=== PATIENT | female | born 1950 | race Two or more races ===

== ENCOUNTER 2023-04-21 11:49 | Outpatient (AMB) | payer OTHER, SELFPAY ==
--- NOTE | 2023-04-21 11:50 | HO.NEPHOV_ITS ---
HPI HPI Comments History of Present Illness Details [age] year old woman with a history of longstanding hypertension cholelithiasis with transaminitis fatty liver and chronic back pain with obesity he is here for follow-up regarding hypertension. She has been on verapamil 180 mg twice a day and telmisartan 80 mg a day. Today she has no specific complaints. Back in July of 2021 she developed cough with Lotrel. Lotrel was switched to valsartan with amlodipine combination which she has been able to tolerate. [facility] Social History (Updated 04/21/23 @ 11:57 by Viktoriya Berger MA) Alcohol intake: never Patient Tobacco Use Status: Never used Tobacco Vital Signs 3 04/21/23 11:51 Height 5 ft 3 in Weight 210 lb BMI 37.2 BP 118/62 Blood Pressure Location Lt brachial Position Sitting Pulse 76 Pulse Source Pulse Oximeter Pulse Oximetry (%) 98 Oxygen Delivery Method Room Air Physical Exam Vital Signs: Last Vital Signs Pulse 76 04/21/23 11:51 BP 118/62 04/21/23 11:51 Pulse Ox 98 04/21/23 11:51 Oxygen Delivery Method Room Air 04/21/23 11:51 BMI result Body Mass Index 37.2 Const General: comfortable Nutritional Appearance: well nourished Orientation/consciousness: patient oriented x3 HEENT Head: No normal to inspection Mouth: moist mucous membranes Neck Neck: Yes supple and Yes no JVD Resp Auscultation: clear to auscultation bilaterally, no rales and rub present Cardio Jugular venous distension: no JVD Palpation: no palpable S3 and no palpable S4 Heart sounds: no rubs GI Palpation (GI): Soft to palpation and nontender Percussion: No Fluid wave present General: Yes no CVA tenderness Back/Spine/Pelvis Back: no CVA tenderness Skin General skin exam: no rashes or lesions noted Neuro General: patient oriented x3 Extrem General: Yes no pedal edema and No clubbing Assessment & Plan Assessment & Plan (1) HTN (hypertension): Code(s): I10 - Essential (primary) hypertension Plan 72-year-old man with history of resistant hypertension. Currently blood pressure is well controlled. We discussed low-salt diet. Continue with current antihypertensive regimen. She will benefit from weight loss as well. I have given refills for hydralazine. Routine lab work ordered Medications: New hydralazine 10 mg PO TID 90 tabs 4RF Coding Level of Care Code Est Pt Level 3 (71268) Diagnoses HTN (hypertension) I10 Results Reviewed Results Reviewed: All lab results reviewed Nephrology Results: No Data to Display
[2023-04-21 11:51] VITALS: BP 118/62; PULSE 76; O2SAT 98; BMI 37.2
== END 2023-04-21 12:06 | disposition home or self-care (01) ==
PROVIDERS: Visit Provider Internal Medicine Hypertension Specialist
DX: I10 Essential (primary) hypertension (principal)
CPT/HCPCS: 99213

== ENCOUNTER → 2023-04-21 11:49 | Outpatient (BNVA) | payer OTHER, SELFPAY | PROVIDERS: Visit Provider Internal Medicine Hypertension Specialist | DX: I10 Essential (primary) hypertension (principal) | CPT/HCPCS: 99212 ==

== ENCOUNTER 2023-08-25 13:19 | Outpatient (AMB) | payer OTHER, SELFPAY ==
[2023-08-25 13:26] VITALS: BP 164/84; PULSE 82; O2SAT 100; BMI 39.1
--- NOTE | 2023-08-25 13:26 | HO.NEPHOV_ITS ---
Vital Signs 08/25/23 13:26 Height 5 ft 3 in Weight 221 lb BMI 39.1 BP 164/84 H Blood Pressure Location Lt brachial Position Sitting Pulse 82 Pulse Source Pulse Oximeter Pulse Oximetry (%) 100 Oxygen Delivery Method Room Air Intake Visit Reasons: August/ Confirmed Endodontics Dentist Required: No Accompanied by: Self / Same As Patient Allergies No Known Allergies Allergy (Verified 08/25/23 13:28) HPI Comments Details: [age] old woman with a history of longstanding hypertension cholelithiasis with transaminitis fatty liver and chronic back pain with obesity he is here for follow-up regarding hypertension. She has been on verapamil 180 mg twice a day and telmisartan 80 mg a day. Today she has no specific complaints. Back in July of 2021 she developed cough with Lotrel. Lotrel was switched to valsartan with amlodipine combination which she has been able to tolerate. c/o KNee pain PFSH Social History Alcohol intake: never Patient Tobacco Use Status: Never used Tobacco Physical Exam Vital Signs: Last Vital Signs Pulse 82 08/25/23 13:26 BP 164/84 H 08/25/23 13:26 Pulse Ox 100 08/25/23 13:26 Oxygen Delivery Method Room Air 08/25/23 13:26 BMI result Body Mass Index 39.1 Const General: comfortable Nutritional Appearance: well nourished Orientation/consciousness: patient oriented x3 HEENT Head: No normal to inspection Mouth: moist mucous membranes Neck Neck: Yes supple and Yes no JVD Resp Auscultation: clear to auscultation bilaterally, no rales and rub present Cardio Jugular venous distension: no JVD Palpation: no palpable S3 and no palpable S4 Heart sounds: no rubs GI Palpation (GI): Soft to palpation and nontender Percussion: No Fluid wave present General: Yes no CVA tenderness Back/Spine/Pelvis Back: no CVA tenderness Skin General skin exam: no rashes or lesions noted Neuro General: patient oriented x3 Extrem General: Yes no pedal edema and No clubbing Results Reviewed Results Reviewed: July 2023 Cr 0.6 UA bland Nephrology Results: No Data to Display Assessment & Plan Assessment & Plan (1) HTN (hypertension): Code(s): I10 - Essential (primary) hypertension Category: Medical Plan 73-year-old woman with history of resistant hypertension. Currently blood pressure is sub optimal We discussed low-salt diet. She will benefit from weight loss as well. Will increase hydralazine to 50 mg TID. Routine lab work ordered Orders: Orders Basic Metabolic Panel 3 Months I10 - Essential (primary) hypertension Medications: Changed From hydralazine 25 mg PO TID 90 tabs 0RF To hydralazine 50 mg PO TID 270 tabs 1RF Coding Level of Care Code Est Pt Level 4 (06307) Diagnoses HTN (hypertension) I10
== END 2023-08-25 13:52 | disposition home or self-care (01) ==
PROVIDERS: Visit Provider Internal Medicine Hypertension Specialist
DX: I10 Essential (primary) hypertension (principal)
CPT/HCPCS: 99214

== ENCOUNTER → 2023-08-25 13:19 | Outpatient (BNVA) | payer OTHER, SELFPAY | PROVIDERS: Visit Provider Internal Medicine Hypertension Specialist | DX: I10 Essential (primary) hypertension (principal) | CPT/HCPCS: 99212 ==

== ENCOUNTER 2023-12-22 12:02 | Outpatient (AMB) | payer OTHER, SELFPAY ==
[2023-12-22 12:07] VITALS: BP 148/70; PULSE 84; O2SAT 94; BMI 36.7
--- NOTE | 2023-12-22 12:07 | HO.NEPHOV_ITS ---
Vital Signs 12/22/23 12:07 Height 5 ft 3 in Weight 207 lb BMI 36.7 BP 148/70 H Blood Pressure Location Lt brachial Position Sitting Pulse 84 Pulse Source Pulse Oximeter Pulse Oximetry (%) 94 Oxygen Delivery Method Room Air Intake Visit Reasons: 4 mon follow up/ Conf Casino Games Dealer Required: No Accompanied by: Self / Same As Patient Allergies No Known Allergies Allergy (Verified 12/22/23 12:09) Medication List - Last Reconciled 12/22/23 by Marshall Holder MD amitriptyline 10 mg PO BEDTIME amlodipine 10 mg PO DAILY duloxetine 60 mg PO DAILY fluticasone propionate 50 mcg/actuation 1 spray intranasal BID hydralazine 50 mg PO TID omeprazole 20 mg PO DAILY rosuvastatin 5 mg PO DAILY simvastatin 10 mg PO DAILY HPI Comments Details: [age] old woman with a history of longstanding hypertension cholelithiasis with transaminitis fatty liver and chronic back pain with obesity he is here for follow-up regarding hypertension. She has been on verapamil 180 mg twice a day and telmisartan 80 mg a day. Today she has no specific complaints. Back in July of 2021 she developed cough with Lotrel. Lotrel was switched to valsartan with amlodipine combination which she has been able to tolerate. She has lost about 14 lbs [facility] Social History Alcohol intake: never Patient Tobacco Use Status: Never used Tobacco Physical Exam Vital Signs: Last Vital Signs Pulse 84 12/22/23 12:07 BP 148/70 H 12/22/23 12:07 Pulse Ox 94 12/22/23 12:07 Oxygen Delivery Method Room Air 12/22/23 12:07 BMI result Body Mass Index 36.7 Const General: comfortable Nutritional Appearance: well nourished Orientation/consciousness: patient oriented x3 HEENT Head: No normal to inspection Mouth: moist mucous membranes Neck Neck: Yes supple and Yes no JVD Resp Auscultation: clear to auscultation bilaterally and no rales Cardio Jugular venous distension: no JVD Palpation: no palpable S3 and no palpable S4 Heart sounds: no rubs GI Palpation (GI): Soft to palpation and nontender Percussion: No Fluid wave present General: Yes no CVA tenderness Back/Spine/Pelvis Back: no CVA tenderness Skin General skin exam: no rashes or lesions noted Neuro General: patient oriented x3 Extrem General: Yes no pedal edema and No clubbing Results Reviewed Nephrology Results: No Data to Display Assessment & Plan Assessment & Plan (1) HTN (hypertension): Code(s): I10 - Essential (primary) hypertension Category: Medical Plan 73-year-old woman with history of resistant hypertension. Currently blood pressure is better controlledl We discussed low-salt diet. She will benefit from weight loss as well. Keep hydralazine 50 mg TID along with other meds Orders: Orders Basic Metabolic Panel 3 Months I10 - Essential (primary) hypertension Coding Level of Care Code Est Pt Level 3 (31735) Diagnoses HTN (hypertension) I10
== END 2023-12-22 12:36 | disposition home or self-care (01) ==
PROVIDERS: Visit Provider Internal Medicine Hypertension Specialist
DX: I10 Essential (primary) hypertension (principal)
CPT/HCPCS: 99213

== ENCOUNTER → 2023-12-22 12:02 | Outpatient (BNVA) | payer OTHER, SELFPAY | PROVIDERS: Visit Provider Internal Medicine Hypertension Specialist | DX: I10 Essential (primary) hypertension (principal); K80.20 Calculus of gallbladder without cholecystitis without obstruction; K76.0 Fatty (change of) liver, not elsewhere classified; E66.9 Obesity, unspecified; Z68.36 Body mass index [BMI] 36.0-36.9, adult | CPT/HCPCS: 99212 ==

== ENCOUNTER 2024-01-19 09:29 | Outpatient (AMB) | payer OTHER, SELFPAY ==
[2024-01-19 09:48] VITALS: BP 130/72; BMI 36.5
--- NOTE | 2024-01-19 09:48 | HO.NEPHOV ---
Vital Signs 01/19/24 09:48 Height 5 ft 3 in Weight 206 lb BMI 36.5 BP 130/72 Blood Pressure Location Lt brachial Position Sitting Intake Visit Reasons: To review medications/ Conf Bowl Turner Required: No Accompanied by: Self / Same As Patient Allergies No Known Allergies Allergy (Verified 01/19/24 09:49) Medication List - Last Reconciled 01/19/24 by Marshall Holder MD amitriptyline 10 mg PO BEDTIME amlodipine 10 mg PO DAILY duloxetine 60 mg PO DAILY fluticasone propionate 50 mcg/actuation 1 spray intranasal BID PRN hydralazine 50 mg PO TID magnesium 250 mg PO DAILY omeprazole 20 mg PO DAILY PRN simvastatin 10 mg PO DAILY vitamin B complex 1 cap PO DAILY HPI Comments Details: [age] old woman with a history of longstanding hypertension cholelithiasis with transaminitis fatty liver and chronic back pain with obesity he is here for follow-up regarding hypertension. She has been on verapamil 180 mg twice a day and telmisartan 80 mg a day. Today she has no specific complaints. Back in July of 2021 she developed cough with Lotrel. Lotrel was switched to valsartan with amlodipine combination which she has been able to tolerate. She has lost about 14 lbs COUNTS INCLUDE 234 BEDS AT [facility] Social History Alcohol intake: never Patient Tobacco Use Status: Never used Tobacco Physical Exam Vital Signs: Last Vital Signs BP 130/72 01/19/24 09:48 BMI result Body Mass Index 36.5 Const General: comfortable; No acute distress Orientation/consciousness: patient oriented x3 Eyes General: appearance normal, both eyes and all related structures Visual Rivers: normal visual rivers by confrontation Neck Neck: Yes supple and Yes no JVD Resp Effort & Inspection: normal respiratory effort and respiratory effort not decreased Auscultation: rhonchi Cardio Palpation: no palpable S3 and no palpable S4 Heart sounds: no rubs GI Inspection: Yes normal to inspection Palpation (GI): Soft to palpation Percussion: Yes normal to percussion Auscultation: normal bowel sounds General: Yes no CVA tenderness Back/Spine/Pelvis Back: no CVA tenderness Skin General skin exam: no petechiae and no purpura Neuro General: patient oriented x3 and no focal motor deficits Extrem General: No clubbing and No edema Results Reviewed Nephrology Results: No Data to Display Assessment & Plan Assessment & Plan (1) HTN (hypertension): Code(s): I10 - Essential (primary) hypertension Category: Medical Plan 73-year-old woman with history of resistant hypertension. Currently blood pressure is better controlledl We discussed low-salt diet. She will benefit from weight loss as well. Keep hydralazine 50 mg TID along with other meds OK to add Losartan Can decrease AMlodipine once Losartan is started Note: Her home BP cuff was calibrated and it is about 20 mmHg higher than the office BP cuffs Orders: Orders Basic Metabolic Panel 6 Months I10 - Essential (primary) hypertension Medications: Changed From fluticasone propionate 50 mcg/actuation administer into each nostril 1 spray intranasal BID 16 grams 0RF To fluticasone propionate 50 mcg/actuation administer into each nostril 1 spray intranasal BID PRN From omeprazole 20 mg PO DAILY 30 caps 0RF To omeprazole 20 mg PO DAILY PRN Coding Level of Care Code Est Pt Level 4 (43257) Diagnoses HTN (hypertension) I10
== END 2024-01-19 10:05 | disposition home or self-care (01) ==
PROVIDERS: Visit Provider Internal Medicine Hypertension Specialist
DX: I10 Essential (primary) hypertension (principal)
CPT/HCPCS: 99214

== ENCOUNTER → 2024-01-19 09:29 | Outpatient (BNVA) | payer OTHER, SELFPAY | PROVIDERS: Visit Provider Internal Medicine Hypertension Specialist | DX: I10 Essential (primary) hypertension (principal); E66.9 Obesity, unspecified; Z68.36 Body mass index [BMI] 36.0-36.9, adult | CPT/HCPCS: 99212 ==

== ENCOUNTER 2024-03-22 12:04 | Outpatient (AMB) | payer OTHER, SELFPAY ==
[2024-03-22 12:08] VITALS: BP 146/72; PULSE 77; O2SAT 99; BMI 35.8
--- NOTE | 2024-03-22 12:08 | HO.NEPHOV_ITS ---
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 Accompanied by: Self / Same As Patient Allergies No Known Allergies Allergy (Verified 03/22/24 12:09) Medication List - Last Reconciled 03/22/24 by Marshall Holder MD albuterol sulfate 90 mcg/actuation inhalation PRN amitriptyline 10 mg PO BEDTIME amlodipine 10 mg PO DAILY duloxetine 60 mg PO DAILY fluticasone propionate 50 mcg/actuation 1 spray intranasal BID PRN hydralazine 50 mg PO TID losartan 25 mg PO DAILY magnesium 250 mg PO DAILY omeprazole 20 mg PO DAILY PRN simvastatin 10 mg PO DAILY valacyclovir 500 mg PO BID PRN vitamin B complex 1 cap PO DAILY HPI Comments Details: [age] old woman with a history of longstanding hypertension cholelithiasis with transaminitis fatty liver and chronic back pain with obesity he is here for follow-up regarding hypertension. She has been on verapamil 180 mg twice a day and telmisartan 80 mg a day. Today she has no specific complaints. Back in July of 2021 she developed cough with Lotrel. Lotrel was switched to valsartan with amlodipine combination which she has been able to tolerate. She has lost about 14 lbs 03/22/2024 Overall doing well no new issues. She has occasional leg edema mostly in the evenings no shortness of breath. [facility] Social History Alcohol intake: never Patient Tobacco Use Status: Never used Tobacco Physical Exam Vital Signs: Last Vital Signs Pulse 77 03/22/24 12:08 BP 136/70 03/22/24 12:18 Pulse Ox 99 03/22/24 12:08 Oxygen Delivery Method Room Air 03/22/24 12:08 BMI result Body Mass Index 35.8 Const General: comfortable; No acute distress Orientation/consciousness: patient oriented x3 Eyes General: appearance normal, both eyes and all related structures Visual Rivers: normal visual rivers by confrontation Neck Neck: Yes supple and Yes no JVD Resp Effort & Inspection: normal respiratory effort and respiratory effort not decreased Auscultation: rhonchi Cardio Palpation: no palpable S3 and no palpable S4 Heart sounds: no rubs GI Inspection: Yes normal to inspection Palpation (GI): Soft to palpation Percussion: Yes normal to percussion Auscultation: normal bowel sounds General: Yes no CVA tenderness Back/Spine/Pelvis Back: no CVA tenderness Skin General skin exam: no petechiae and no purpura Neuro General: patient oriented x3 and no focal motor deficits Extrem General: No clubbing and No edema Results Reviewed Results Reviewed: Renal panel normal Nephrology Results: No Data to Display Assessment & Plan Assessment & Plan (1) HTN (hypertension): Code(s): I10 - Essential (primary) hypertension Category: Medical Plan 73-year-old woman with history of resistant hypertension. Currently blood pressure is better controlled We discussed low-salt diet. She will benefit from weight loss as well. Keep hydralazine 50 mg TID along with other meds Continue with current medications no changes were made Note: Her home BP cuff was calibrated and it is about 20 mmHg higher than the office BP cuffs Orders: Orders Basic Metabolic Panel 6 Months I10 - Essential (primary) hypertension Coding Level of Care Code Est Pt Level 4 (33780) Diagnoses HTN (hypertension) I10
[2024-03-22 12:18] VITALS: BP 136/70
== END 2024-03-22 12:21 | disposition home or self-care (01) ==
PROVIDERS: Visit Provider Internal Medicine Hypertension Specialist
DX: I10 Essential (primary) hypertension (principal)
CPT/HCPCS: 99214

== ENCOUNTER → 2024-03-22 12:04 | Outpatient (BNVA) | payer OTHER, SELFPAY | PROVIDERS: Visit Provider Internal Medicine Hypertension Specialist | DX: I10 Essential (primary) hypertension (principal) | CPT/HCPCS: 99212 ==

== ENCOUNTER 2024-06-28 08:32 | Outpatient (AMB) | payer OTHER, SELFPAY ==
[2024-06-28 08:33] VITALS: BP 130/72; PULSE 83; O2SAT 100; BMI 37.6
--- NOTE | 2024-06-28 08:33 | HO.NEPHOV ---
Vital Signs 06/28/24 08:33 Height 5 ft 3 in Weight 212 lb BMI 37.6 BP 130/72 Blood Pressure Location Lt brachial Position Sitting Pulse 83 Pulse Source Pulse Oximeter Pulse Oximetry (%) 100 Oxygen Delivery Method Room Air Intake Visit Reasons: Medication Concerns/ Conf Pmo Consultant Required: No Accompanied by: Self / Same As Patient Allergies No Known Allergies Allergy (Verified 06/28/24 08:35) Medication List - Last Reconciled 06/28/24 by Marshall Holder MD albuterol sulfate 90 mcg/actuation inhalation PRN amlodipine 10 mg PO DAILY duloxetine 60 mg PO DAILY fluticasone propionate 50 mcg/actuation 1 spray intranasal BID PRN hydralazine 50 mg PO TID losartan 25 mg PO DAILY magnesium 250 mg PO DAILY PRN omeprazole 20 mg PO DAILY PRN simvastatin 5 mg PO DAILY valacyclovir 500 mg PO BID PRN vitamin B complex 1 cap PO DAILY HPI Comments Details: [age] old woman with a history of longstanding hypertension cholelithiasis with transaminitis fatty liver and chronic back pain with obesity he is here for follow-up regarding hypertension. She has been on verapamil 180 mg twice a day and telmisartan 80 mg a day. Today she has no specific complaints. Back in July of 2021 she developed cough with Lotrel. Lotrel was switched to valsartan with amlodipine combination which she has been able to tolerate. She has lost about 14 lbs 03/22/2024 ;Overall doing well no new issues. She has occasional leg edema mostly in the evenings no shortness of breath. 06/28/24: Events noted; Recently had a spike in BP . No change in medications [facility] Social History Alcohol intake: never Patient Tobacco Use Status: Never used Tobacco Physical Exam Vital Signs: Last Vital Signs Pulse 83 06/28/24 08:33 BP 130/72 06/28/24 08:33 Pulse Ox 100 06/28/24 08:33 Oxygen Delivery Method Room Air 06/28/24 08:33 BMI result Body Mass Index 37.6 Const General: comfortable; No acute distress Orientation/consciousness: patient oriented x3 Eyes General: appearance normal, both eyes and all related structures Visual Rivers: normal visual rivers by confrontation Neck Neck: Yes supple and Yes no JVD Resp Effort & Inspection: normal respiratory effort and respiratory effort not decreased Cardio Palpation: no palpable S3 and no palpable S4 Heart sounds: S1 normal heart sound present, S2 normal heart sound present, Murmur heart sound present (Ejection systolic) and no rubs GI Inspection: Yes normal to inspection Palpation (GI): Soft to palpation Percussion: Yes normal to percussion Auscultation: normal bowel sounds General: Yes no CVA tenderness Back/Spine/Pelvis Back: no CVA tenderness Skin General skin exam: no petechiae and no purpura Neuro General: patient oriented x3 and no focal motor deficits Extrem General: No clubbing and No edema Results Reviewed Results Reviewed: Renal panel normal Nephrology Results: No Data to Display Assessment & Plan Assessment & Plan (1) HTN (hypertension): Code(s): I10 - Essential (primary) hypertension Category: Medical Plan 73-year-old woman with history of resistant hypertension. Currently blood pressure is better controlled We discussed low-salt diet. She will benefit from weight loss as well. Keep hydralazine 50 mg TID along with other meds Continue with current medications No changes were made Note: Her home BP cuff was calibrated and it is about 20 mmHg higher than the office BP cuffs Orders: Orders Basic Metabolic Panel 4 Months I10 - Essential (primary) hypertension Coding Level of Care Code Est Pt Level 4 (97405) Diagnoses HTN (hypertension) I10
--- OUTSIDE RECORDS SUMMARY | 2024-06-28 09:04 | XMS_ITS ---
Author Organization [facility] Address [address] [place] [address] Care Team Providers Care Graduate Studies Dean Name Role Phone Michael Orona MD Primary Care Provider UnavailHe Lujan Unavailable [phone] Allergies Allergen (clinical drug ingredient) Drug/Non Drug Allergy documented on EMR Reaction Allergy Type Onset Date Status morphine Morphine Unknown Drug Allergy Active REASON FOR VISIT PCP 07/09/23 Medications Medication SIG (Take, Route, Frequency, Duration) Notes Start Date End Date Status Vitamin D Active Voltaren 1 % as directed Externally 05/29/2022 Active Gemtesa Active hydrALAZINE HCl 25 MG 1 tablet with food Orally Three times a day for 30 day(s) Active Nortriptyline HCl 10 MG 1 capsule Orally Once a day for 30 day(s) Active amLODIPine Besylate 5 MG 1 tablet Orally Once a day for 30 day(s) Active B Complex Active DULoxetine HCl 60 MG 1 capsule Orally On ce a day for 30 day(s) Active Fish Oil Active ASO Ankle/Foot Stablizing AFO As directed Wear Daily for as needed 07/23/2023 Active Social History Tobacco Use: Social History Observation Description Date Details (start date - stop date) Former Smoker NA - NA Tobacco Use/Smoking Question Answer Notes Are you a: former smoker Additional Findings: Tobacco Non-User Current no n-smoker Alcohol Screen Question Answer Notes Did you have a drink containing alcohol in the p ast year? No Points 0 Interpretation Negative Tobacco use other than smoking: Question Answer Notes Are you an other tobacco user? No Vital Signs Height 5ft 3 in in 07/23/2023 Weight 210 lbs 07/23/2023 BMI 37.2 kg/m2 07/23/2023 Encounters Encounter Location Date Provider Diagnosis [facility] [place] [address] [place] [id number] 07/23/2023 [place] Pain in right foot M79.671 ; Primary osteoarthritis, right ankle and foot M19.071 ; Metatarsalgia, right foot M77.41 ; Tailor's bunion of right foot M21.621 and Plantar fascial fibromatosis M72.2 Assessments Encounter Date Diagnosis (ICD Code) Assessment Notes Treatment Notes Treatment Clinical Notes Section Notes 07/23/2023 Pain in right foot (ICD-10 - M79.671) 07/23/2023 Primary osteoarthritis, right ankle and foot (ICD-10 - M19.071) 07/23/2023 Metatarsalgia, right foot (ICD-10 - M77.41) 07/23/2023 Tailor's bunion of right foot (ICD-10 - M21.621) 07/23/2023 Plantar fascial fibromatosis (ICD-10 - M72.2) Plan Of Treatment Medication Medication Name Sig Start Date Stop Date Notes ASO Ankle/Foot Stablizing AFO As directe d Wear Daily for as needed 07/23/2023 Pending Test Test Name Order Date X ray : Ankle, right 3V 07/23/2023 Next Appt Details Follow Up: 4 Weeks, Reason: Progress Notes * Maximo BLANCAB:[birth year] (72 yo F)Acc No.[id number]:07/23/2023 Progress Note Patient:?Lennie Blancalia Provider:?He Jade DPM :1950???Age:72 Y???Sex:Female D ate:07/23/2023 Address:[address] [place] [id number] Pcp:Michael Orona MD Subjective: * Chief Complaints: * ???PCP 07/09/23 * HPI: ???Foot Pain:?Nature:?sharp, swelling, aching.?Location?Top, Midfoot, Right , Bottom, Midfoot, Right .?Duration:?several months.?Onset/Cause:?unknown, denies trauma.?Course:?worse in past?4-5 weeks.?Aggrevated:?any pressure, shoes, after driving car.?Treatments:?cortisone injection therapy, improved condition for 2 months.?Quality/Severity?7-8, scale 1-10.? * ROS:?General/Constitutional:?Nausea?denies.?Vomiting?denies.?Hunger Thirst?denies.?Loss appetite?denies.?Chills?denies.?Fatigue?denies.?Fever?denies.?Night Sweats?denies.?Unexplained weight loss?denies.?Unexplained weight gain?denies.?HEENTM:?Dentures?denies.?Dizziness?denies.?Glasses/contacts?admits.?Retinopathy?de nies.?Blurred/double vision?denies.?TMJ?denies.?Discharge/drainage?denies.?Implants?denies.?Sore throat?denies.?Dental implants?denies.?Hard of hearing ?denies.?Difficulty chewing/swallowing/speaking?denies.?Nose bleeds?denies.?Sore mouth?denies.?Respiratory:?On Oxygen?denies.?Pneumonia/pleurisy?denies.?Bronchitis?denies.?Emphysema?denies.?C oughing?denies.?Cough blood?denies.?Shortness of breath?denies.?Wheezing?admits.?Cardiovascular:?Pacemaker?denies.?MVP?denies.?WPW?denies.?CHF?denies.?Heart attack?denies.?Septal defect?denies.?Rapid beat?denies.?Chest pain ?denies.?Atrial Fib.?denies.?Murmur/Palpitations?denies.?Gastrointestinal:?Hemorrhoids?denies.?Stomach/Abdominal pain?denies.?Dark blood stool?denies.?Irritable bowel ?admits.?Constipation?denies.?Diarrhea?denies.?Hematology:?Swelling?admits.?Clots?denies.?Varicose Veins?admits.?Bruising?denies.?Bleeding problem?denies.?Genitourinary:?Blood urine?denies.?Frequent/Painfu/urination/bladder control?denies.?Kidney stones?denies.?Infection (UTI)?denies.?Nephropathy?denies.?sex trans dis (STD)?denies.?Prostate?denies.?Musculoskeletal:?Hammertoes?denies.?Bunions?denies.?Back Pain?admits.?Muscle Cramps/ Resting?denies.?Muscle cramps / walking?denies.?Generalized aches and pains?denies.?Weakness?denies.?Integ.:?Zhou?denies.?Scars?denies.?Corns/calluses?denies.?Ingrown nails?denies.?Painful nails?denies.?Open Sores?denies.?Rashes?denies.?Neurologic:?Difficulty sleeping?admits.?Brain disorder?denies.?Numbness?denies.?Balance trouble?admits.?Confusion?denies.?Fainting/blackouts?denies.?Tingling?admits.?Tr emors?admits.? * Medical History:? * Surgical History:?knee repla cement 12/20/20shoulder replacement 07/22/21elbow sx 11/17/21 * Hospitalization/Major Diagno stic Procedure:?Denies Past Hospitalization * Family History:?Mother: dece ased, diagnosed with Unspecified essential hypertension.?Father: .?Spouse: .? * Social History:?Tobacco Use:?Tobacco Use/Smoking?Are you a:?former smoker ?Additional Findings: Tobacco Non-User?Current non-smoker ?Tobacco use other than smoking?Are you an other tobacco user??No ???Drugs/Alcohol:?Drugs?Have you used drugs other than those for medical reasons in the past 12 months??No ?Alcohol Screen?Did you have a drink containing alcohol in the past year??No ?Points?0 ?Interpretation?Negative ???Miscellaneous:?Caffeine: yes, frequency:. ?Children: yes. ?Marital status: . ?Occupation: Retired. * Medications:?TakingamLODIPin e Besylate 5 MG Tablet 1 tablet Orally Once a dayB Complex DULoxetine HCl 60 MG Capsule Delayed Release Particles 1 capsule Orally Once a dayFish Oil hydrALAZINE HCl 25 MG Tablet 1 tablet with food Orally Three times a dayNortriptyline HCl 10 MG Capsule 1 capsule Orally Once a dayVitamin D Voltaren 1 % Gel as directed Externally Gemtesa Medication List reviewed and reconciled with the patientTaking amLODIPine Besylate 5 MG Tablet 1 tablet Orally Once a dayTaking B Complex Taking DULoxetine HCl 60 MG Capsule Delayed Release Particles 1 capsule Orally Once a dayTaking Fish Oil Taking hydrALAZINE HCl 25 MG Tablet 1 tablet with food Orally Three times a dayTaking Nortriptyline HCl 10 MG Capsule 1 capsule Orally Once a dayTaking Vitamin D Taking Voltaren 1 % Gel as directed Externally Taking Gemtesa Medication List reviewed and reconciled with the patient * Allergies:?Morphineyes[Aller gies Verified] Objective: * Vitals:?Ht:5ft 3 in, Wt:210, BMI:37.2, Shoe size:9, Ht-cm: 160.02 cm, Wt-k.25 kg. * Examination: ???General Examination: ?GENERAL APPEARANCE:?pleasant, alert, well nourished, well developed, well hydrated, with good attention to hygene/body habitus, and in no acute distress.?ORIENTED:?person,place, and time.?Neurological: ?SENSORY:?Neurological exam is normal, pain sensation normal, vibration sensation intact, pinprick sensation is normal in the lower extremities, denies, tingling, burning, anesthesia, paresthesia, hyperesthesia, B/L, Neurological exam demonstrates pop dorsum right?3rd mt-cun?and pop plantar fascia midfoot christos; most acute pop right sinus tarsi and cc.?TINEL'S COMPRESSION:?Negative tarsal tunnel, gregory pedis, and medial calcaneal nerves B/L.?BABINSKI REFLEX:?absent.?Neuroma Pain: ?PALPATION:?No interspace pain noted on palpation.?Vascular: ?DP PULSES:?2/4, B/L.?PT PULSES:? 1/4, B/L.?CAPILLARY FILL TIME:?3 secs. per digit, B/L.?SKIN TEMPERTURE GRADIENT OF THE LOWER EXTERMITIES:?warm to cool, proximal to distal, B/L.?EDEMA:? 2/4, B/L, Ankle(s), Leg(s).?TELANGECTASIA:? present.?VARICOSITIES:? present, moderate, nonpainful, B/L.?Dermatologic: ?SKIN FINDINGS:?Skin exam reveals normal texture, elasticity, and tugor. There are no masses. The interspaces are clear, B/L .?Orthopedic: ?MUSCLE STRENGTH:?5/5 all groups in a symmetrical fashion , B/L.?GAIT ABNORMALITY:?pronated, abducted, B/L.?X-Rays - IMAGING REPORT: ?Clinical Indication(s):? Evaluate Biomechanical Deformity.?Views:? 3 views of Ankle, RIGHT.?Findings:?mild generalized decrease in bone density, asymmetrical Ankle joint space narrowing, medial gutter, lateral gutter.?Foot structure:? reveals excess pronation with, anterior break in cyme line.? * Physical Examination:?L1902 ASO-AFO:?Application of ankle foot orthosis, ankle gauntlet, prefabricated, including fitting and adjustment:?Medium, Right.? Assessment: * Assessment: 1.?Pain in right foot - M79. 671 (Primary)?2.?Primary osteoarthritis, right ankle and foot - M19.071?3.?Metatarsalgia, right foot - M77.41?4.?Tailor's bunion of right foot - M21.621?5.?Plantar fascial fibromatosis - M72.2? Plan: * Treatment: * Procedure Codes:?30845 X-RAY EXAM OF RIGHT ANKLE 3V, Modifiers: 26 , MLE5007 AFO ANK GAUNTLT PREFAB W FIT ADJ, Modifiers: RT * Preventive Medicine:? ??Counseling:?Discussion:?-14: Office or other outpatient visit for the evaluation and management of an established patient, which required a medically appropriate history and/or examination and MODERATE level of DECISION MAKING for: 1 OR MORE CHRONIC PROBLEM(S) THATS WORSENING, 2 STABLE CHRONIC PROBLEMS, A NEWLY DIAGNOSED PROBLEM WITH UNCERTAIN PROGNOSIS, AN ACUTE COMPLICATED INJURY WITH MULTIPLE TREATMENT OPTIONS, OR AN ACUTE PROBLEM WITH ACCOMPANYING SYSTEMIC SYMPTOMS, THAT POSE(S) A MODERATE RISK OF MORBIDITY. THIS CONDITION MAY ALSO INCLUDE RX DRUG MANAGEMENT, OR A DECISON FOR MINOR SURGERY. The visit on the day of the encounter encompassed interpreting the data and educating the patient as to the nature of their condition, treatment options available according to their individual PMH, meds, allergies, and overall health/living conditions, as well as any potential risks or complications that may occur from a failure to adhere to, and participate in, the recommended course of therapy. The discussion included a complete verbal, and/or written explanation of the examination results, any x-rays taken, the proposed diagnosis, and outline of the treatment plan. A schedule for future care needs was also explained. The patient verbalized an understanding of the instructions at this time and agreed to be an active participant in their treatment. If the patient should think of any questions or concerns after the visit, I have encouraged the patient to call the office--pt to use otc domp stockings.?Orthotic Dispensing:?The patient presents today for fitting and dispensing of orthotics. The inserts were checked against the prescription and found to be accurate. They were properly fitted to the patients feet and shoes in both weight-bearing and non-weight bearing attitudes. The patient was instructed to gradually increase the amount of time they are wearing the orthoses, starting with one hour the first day and thereon progressively increasing the amount of time used by one hours per day until they are comfortable to be worn all day and with all activities. They were asked to call the office if any signs of skin irritation were noted including redness, blistering or callous formation. The patient verbally indicated a full understanding of all the above information, Handout reviewed and dispensed.? * Follow Up:?4 Weeks * Images: * Sign off status: Completed true * Provider:?He Jade DPM Date:? 024 Generated for Amando awad/Hien/Pageitting on:?06/28/2024 09:04 AM EST History and Physical Notes * HPI (History of Present Illness) Category Sub-Category Detail Notes Category Not es Foot Pain Aggrevated: any pressure, shoes, after d riving car Onset/Cause: unknown, denies lizette lopez Course: worse in past 4-5 we eks Duration: several months Nature: sharp, swelling, ach ing Treatments: cortisone injection therapy, improved condition for 2 months Quality/Severity 7-8, scale 1-10 Location Top, Midfoot, Right , Bottom, Midfoot, Right Physical Examination Category Sub-Category Detail Notes Section Note s L1902 ASO-AFO Application of ankle foot orthosis, ankle gauntlet, prefabricated, including fitting and adjustment: Medium, Right Examination Category Sub-Category Detail Notes Category [...]
--- OUTSIDE RECORDS SUMMARY | 2024-06-28 09:04 | XMS_ITS | Encounter Summary ---
Author Organization [facility] Address [address] [place] [address] Phone Care Team Providers Care Carton Filling Machine Operator Name Role Phone Michael Orona MD Primary Care Provider [phone] Encounter Details Date Type Department Care Team (Late st Contact Info) Description 05/26/2022 Telephone [facility] [address] [place] [address] Marshall Holder MD Social History Tobacco Use Types Packs/Day Years Used Date Smoking Tobacco: Never Smokeless Tobacco: Never Alcohol Use Standard Drinks/Week Comments Not Currently 0 (1 standard drink = 0.6 oz pur e alcohol) Comments Unknown Sex and Gender Information Value Date Recorded Sex Assigned at Not on file Legal Sex Female 10:52 AM EST Gender Identity Not on file Sexual Orientation Not on file documented as of this encounter Miscellaneous Notes * Telephone Encounter - Cris Berger - 05/26/2022 9:20 AM EST Pt called, she needs a refill for hydralazine tiny, Please send to [facility] pharmacy she is out of alexander meds thank you documented in this encounter Plan of Treatment Not on file documented as of this encounter Visit Diagnoses Not on filedocumented in this encounter Care Teams Carton Filling Machine Operator Relationship Specialty Start Date End Date Michael Orona MD [facility] [address] [place], [place] PCP - General Internal Medicine 03/19/21 documented as of this encounter
--- OUTSIDE RECORDS SUMMARY | 2024-06-28 09:04 | XMS_ITS | Clinical Summary ---
Author Organization [facility] Address [address] [place] [address] Care Team Providers Care Party Plan Selling Distributor Name Role Phone Unavailable Primary Care Provider Unavailabl e Social History Tobacco Use Types Packs/Day Years Used Date Smoking Tobacco: Never Assessed Comments Unknown Sex and Gender Information Value Date Recorded Sex Assigned at Not on file Legal Sex Female 2:00 AM EST Gender Identity Not on file Sexual Orientation Not on file Plan of Treatment Health Maintenance Due Date Last Done Comments Breast Cancer Screening 1950 DTaP,Tdap,and Td Vaccines (1 - Tdap) 08/21/1970 Pneumococcal Vaccine: 50+ Ye ars (1 of 1 - PCV) 08/21/2001 Zoster Vaccines (1 of 2) 08/21/2001 Colorectal Cancer Screening: Colonoscopy 04/05/2022 Depression Screening 04/05/2022 Falls Risk Assessment 04/05/2022 Hepatitis C Screening 04/05/2022 Osteoporosis Screening (Bone Density Screening) 04/05/2022 Social Influencers of Health Screening 04/05/2022 COVID-19 Vaccine ( - 2023-2 5 season) 2024 Influenza Vaccine (#1) 2024 RSV Immunization Patients 60 + Years Old (1 - 1-dose 75+ series) 08/21/2026 HIB Vaccines Aged Out No longer eligi ble based on patient's age to complete this topic HPV Vaccines Aged Out No longer eligi ble based on patient's age to complete this topic Hepatitis A Vaccines Aged Out No long er eligible based on patient's age to complete this topic Hepatitis B Vaccines Aged Out No long er eligible based on patient's age to complete this topic IPV Vaccines Aged Out No longer eligi ble based on patient's age to complete this topic MMR Vaccines Aged Out No longer eligi ble based on patient's age to complete this topic Meningococcal ACWY Vaccine Aged Out N o longer eligible based on patient's age to complete this topic Meningococcal B Vacine Aged Out No lo nger eligible based on patient's age to complete this topic RSV Immunization Patients Un abilio 20 months Aged Out No longer eligible b ased on patient's age to complete this topic Varicella Vaccines Aged Out No longer eligible based on patient's age to complete this topic
--- OUTSIDE RECORDS SUMMARY | 2024-06-28 09:04 | XMS_ITS ---
Author Organization [facility] Address [address] [place] [address] Care Team Providers Care Learning Operations Specialist Name Role Phone Michael Orona MD Primary Care Provider Unavailab He Bee [phone] REASON FOR VISIT cx 08/24/2023 Encounters Encounter Location Date Provider Diagnosis [facility] [address] [place] [address] 08/23/2023 He Jade Plan Of Treatment No Information Progress Notes * Jeremi BLANCADiazB:[birth year] (73 yo F)Acc No.[id number]:08/23/2023 Patient:?Lillie Blanca :1950???Age:73 Y???Sex:Female Address:[address] [place] [address], [id number] * true * Date:? Generated for Printi delmi/Hien/eTransmitting on:?06/28/2024 09:03 AM EST
--- OUTSIDE RECORDS SUMMARY | 2024-06-28 09:04 | XMS_ITS | Data Portability ---
Author Organization [facility] Pain [facility], PAIN OFFICE Address [address],[facility] [address] [place] [address] Care Team Providers Care Extension Service Specialist In Charge Name Role Phone JAVIER TRACEY Primary Care Provider Assessment Encounter Date Assessment Date Assessment LastModified by Organization Details LastModified Time 05/24/2019 05/24/2019 Lillie Phillips is a 68 year old woman with complaints of left sided low back pain radiating into left lower extremity. She is S/P back surgery in the past. On exam, she has positive straight leg raising test in the left with tenderness in the left L4-5 , L5-S1 facet levels .MRI Lumbar spine shows post operative changes at L5-S1 level. Facet arthrosis at L4-5 and L5-S1 level.Degenerat renny findings are most significant at L3-L4 with moderate spinal canal narrowing and lateral recess narrowing.I recommend a trial of lumbar epidural steroid injection under fluoroscopic guidance. The risks and benefits of the procedure were reviewed in detail. She wishes to proceed. An appointment has been booked. She needs a straight truck driver on the day of the procedure. I have started her on gabapentin 300 mg at night and titrate to three times a day. [email or web address] Not available 05/29/2019 13:03:39 05/30/2019 05/30/2019 Lillie Phillips is a 68 year old woman with complaints of left sided low back pain radiating into left lower extremity. She is S/P back surgery in the past. On exam, she has positive straight leg raising test in the left with tenderness in the left L4-5 , L5-S1 facet levels .MRI Lumbar spine shows post operative changes at L5-S1 level. 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 She is here for a trial of lumbar epidural steroid injection under fluoroscopic guidance. The risks and benefits of the procedure were reviewed in detail. She wishes to proceed. She will follow up in four weeks. [email or web address] Not available 05/30/2019 11:30:34 06/29/2019 06/29/2019 Lillie Phillips is a 68 year old woman with complaints of left sided low back pain radiating into left lower extremity. She is S/P back surgery in the past. On exam, she has positive straight leg raising test in the left with tenderness in the left L4-5 , L5-S1 facet levels .MRI Lumbar spine shows post operative changes at L5-S1 level. 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 She is here for a folow up after a trial of lumbar epidural steroid injection under fluoroscopic guidance. She reports 80% pain benefit which is ongoing with improved function. She can follow up as needed. [email or web address] Not available 07/04/2019 08:33:16 10/04/2020 10/04/2020 Lillie Phillips is a 68 year old woman with complaints of left sided low back pain radiating into left lower extremity. She is S/P back surgery in the past. On exam, she has positive straight leg raising test in the left with tenderness in the left L4-5 , L5-S1 facet levels .MRI Lumbar spine shows post operative changes at L5-S1 level. 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 This is a follow up . She had a lumbar epidural steroid injection under fluoroscopic guidance on 05/30/2019. She reports 80% pain benefit which is ongoing with improved function. She can follow up as needed. [email or web address] Not available 10/04/2020 13:53:28 03/23/2022 03/23/2022 Lillie Phillips is a 71 year old woman with complaints of left sided low back pain radiating into left lower extremity. She is S/P back surgery in the past. On exam, she has positive straight leg raising test in the left with tenderness in the left L4-5 , L5-S1 facet levels .MRI Lumbar spine shows post operative changes at L5-S1 level. Facet arthrosis at L4-5 and L5-S1 level.Degenerat renny findings are most significant at L3-L4 with moderate spinal canal narrowing and lateral recess narrowing.I recommend a repeat lumbar epidural steroid injection under fluoroscopic guidance. The risks and benefits of the procedure were reviewed in detail. She wishes to proceed. An appointment has been booked. She needs a straight truck driver on the day of the procedure. [email or web address] Not available 03/23/2022 14:21:57 Plan of Treatment Reminders Order Date Submit Date Provider Last Modified By Organization Details Last Modified Time Details Appointments None recorded. Lab None recorded. Referral None recorded. Procedures None recorded. Surgeries None recorded. Imaging None recorded. Medication Orders gabapentin 300 mg capsule 2019 020 [facility] [address] [id number], [address] [place], [place], [phone], 13:00:17 Patient TargetsNo targets recorded. Patient Instructions Encounter Date Encounter Id Patient Instructions Last Modified By Organization Details Last Modified Time 05/24/2019 [id number] She was advised to continue with activities as tolerated. [email or web address] Not available 05/29/2019 12:01:06 05/30/2019 [id number] She was advised to continue with activities as tolerated. [email or web address] Not available 05/30/2019 11:29:57 06/29/2019 [id number] She was advised to continue with activities as tolerated. [email or web address] Not available 07/04/2019 08:30:21 10/04/2020 [id number] She was advised to continue with activities as tolerated. [email or web address] Not available 10/04/2020 13:52:51 03/23/2022 [id number] She was advised to continue with activities as tolerated. [email or web address] Not available 03/23/2022 14:20:35 Reason for Referral None Reported. Problems Name Problem SNOMED Code Status Onset Date Resolution Date Notes Provider Name and Address Organization Details Recorded Time Lumbosacral spondylosis without myelopathy 68642101 Active 2016 Dillan george MD [address] , [address], [facility] [place], [address], [place] [facility] 7 10:14:12 Lumbar post-laminecto my syndrome 646649068 Active 2016 Dillan george MD [address] , [address], [facility] [place], [address], [place] [facility] 7 10:14:14 Displacement of lumbar intervertebral disc without myelopathy 09341408 Active 2016 Dillan george MD [address] , [address], [facility] [place], [address], [place] [facility] 10:14:15 Spinal stenosis of lumbar region 64533242 Active 2016 Dillan george MD [address] , [address], [facility] [place], [address], [place] [facility] 10:14:17 Problem Notes None recorded. Procedures Surgical History Date Name Laterality Status Provider Name and Address Organization Details Recorded Time 05/30/19 20 Lumbar Epidural steroid injection under fluoroscopic guidance completed Dillan West MD [address] , [address], [place], [address], [place] [facility] 05/30/2019 11:31:42 02/23/20 18 Fluoroscopic Guided Lumbar Facet Steroid Injections of levels completed Dillan West MD [address] , [address], [place], [address], [place] [facility] 02/24/2018 08:53:58 08/02/19 18 Other completed Joyce Whaley [place] [facility] 12/08/2018 14:20:26 01/28/20 17 Fluoroscopic Guided Lumbar Facet Steroid Injections of levels completed Dillan West MD [address] , [address], [place], [address], [place] [facility] 01/27/2017 15:10:05 Back Surgery completed Joyce Whaley [place] [facility] 01/08/2017 09:24:56 Other completed Joyce Whaley [place] [facility] 01/08/2017 09:25:46 Hysterectomy completed Joyce Eckerter [place] [facility] 01/08/2017 09:26:07 Carpal tunnel release completed Joyce Dailyzier [facility] 01/08/2017 09:26:44 Arthroscopic Surgery completed Joyce Eckerter [place] [facility] 01/08/2017 09:27:23 Cholecystectomy completed Joyce Eckerter [place] [facility] 01/08/2017 09:27:31 total knee replacement completed Dillan West MD [address] [facility] , [address], [place], [address], [place] [facility] 10/04/2020 10:37:18 total shoulder replacement completed Dillan West MD [address] [facility] , [address], [place], [address], [place] [facility] 03/23/2022 14:48:43 Imaging Results None recorded. Procedure Notes None recorded. Medical Equipment None Reported. Allergies No known drug allergies Medications Name Sig Start Date Stop Date Status Note LastModified by Organization Details LastModified Time vitamin d3 1.25 mg (63988 u active Not Available Not Available Not Available stool softener 100mg capsules TAKE 1 CAPSULE BY MOUTH UP TO TWICE DAILY NEEDED FOR CONSTIPAT ION WHILE TAKING NARCOTIC MEDS. active Not Available Not Available No t Available celecoxib 200 mg capsule TK 1 C PO QD 10/04 completed Not Available Not Available Not Available cyclobenzap rine 10 mg tablet 12/08 completed Not Available Not Available Not Available latanoprost 0.005 % eye drops INSTILL 1 DROP INTO RIGHT EYE AT BEDTIME active Not Available Not Available No t Available methocarbam ol 500 mg tablet TAKE 1 TABLET BY MOUTH THREE TIMES DAILY 03/23 completed Not Available Not Available Not Available primidone 50 mg tablet TAKE ONE-HALF TABLET BY MOUTH EVERY NIGHT AT BEDTIME. INCREASE BY ONE-HALF TABLET WEEKLY UNTIL TREMOR CONTROLLE D UP TO 2 NIGHTLY 01/08 completed Not Available Not Available Not Available prednisone 10 mg tablet 01/08 completed Not Available Not Available Not Available clindamycin HCl 300 mg capsule TK ONE C PO TID FOR 10 DAYS 10/04 completed Not Available Not Available Not Available azithromyci n 250 mg tablet 06/29 completed Not Available Not Available Not Available aspirin 325 mg tablet TAKE 1 TABLET BY MOUTH DAILY FOR 14 DAYS BEGINNING THE DAY AFTER SURGERY active Not Available Not Available No t Available benzonatate 200 mg capsule active Not Available Not Available Not Available hydrocodone 5 mg-acetamin ophen 325 mg tablet 10/04 completed Not Available Not Available Not Available meloxicam 15 mg tablet 03/23 completed Not Available Not Available Not Available ondansetron HCl 4 mg tablet TK 1 T PO EVERY 8 HOURS PRN 01/08 completed Not Available Not Available Not Available prednisone 20 mg tablet TAKE 2 TABLETS BY MOUTH DAILY 03/23 completed Not Available Not Available Not Available prednisone 5 mg tablet 03/23 completed Not Available Not Available Not Available metronidazo le 250 mg tablet TAKE 1 TABLET BY MOUTH THREE TIMES DAILY FOR 7 DAYS active Not Available Not Available No t Available verapamil ER (SR) 180 mg tablet,exte nded release TAKE 1 TABLET BY MOUTH TWICE DAILY 03/23 completed Not Available Not Available Not Available hydralazine 25 mg tablet TAKE 1 TABLET BY MOUTH THREE TIMES DAILY. START HYDRALAZI NE THIS EVENING. HOLD IF SYSTOLIC BLOOD PRESSURE IS BELOW 110 MMHG active Not Available Not Available No t Available metronidazo le 500 mg tablet 01/08 completed Not Available Not Available Not Available tramadol 50 mg tablet TK 1 T PO Q 12 H UTD PRF PAIN. DO NOT DRIVE WHILE TAKING THIS MEDICATIO N 10/04 completed Not Available Not Available Not Available acetaminoph en 500 mg tablet TAKE 2 TABLETS BY MOUTH EVERY 8 HOURS NEEDED FOR PAIN active Not Available Not Available No t Available lidocaine-p rilocaine 2.5 %-2.5 % topical cream ADA 1 GRAM EXT AA TID UTD active Not Available Not Available No t Available oxycodone-a cetaminophe n 5 mg-325 mg tablet 06/08 completed Not Available Not Available Not Available hydromorpho ne 2 mg tablet TAKE 1 TABLET BY MOUTH EVERY 4 HOURS DIRECTED NEEDED FOR PAIN 03/23 completed Not Available Not Available Not Available famotidine 20 mg tablet TK 1 T PO BID 01/08 completed Not Available Not Available Not Available prednisolon e acetate 1 % eye drops,suspe nsion SHAKE LIQUID AND INSTILL 1 DROP IN LEFT EYE FOUR TIMES DAILY FOR 5 DAYS. START AFTER LASER TREATMENT 03/23 completed Not Available Not Available Not Available magnesium oxide 400 mg (241.3 mg magnesium) tablet 03/23 completed Not Available Not Available Not Available methocarbam ol 750 mg tablet TAKE 1 TABLET BY MOUTH THREE TIMES DAILY 03/23 completed Not Available Not Available Not Available triamcinolo ne acetonide 0.025 % topical cream APPLY TOPICALLY TO THE AFFECTED AREA THREE TIMES DAILY active Not Available Not Available No t Available aspirin 325 mg tablet,erin yed release TK 1 T PO BID MEDICATIO N TO BE STARTED AFTER SURGERY 10/04 completed Not Available Not Available Not Available lorazepam 2 mg tablet TK 1 T PO QHS AND TK 1 T PO 1 HOUR PRIOR TO THE PROCEDURE 02/23 completed Not Available Not Available Not Available amlodipine 5 mg-benazepr il 20 mg capsule TAKE 1 CAPSULE BY MOUTH DAILY active Not Available Not Available No t Available colesevelam 625 mg tablet active Not Available Not Available Not Available baclofen 10 mg tablet TK 1 T PO TID 01/08 completed Not Available Not Available Not Available pantoprazol e 40 mg tablet,erin yed release TK 1 T PO ONCE A DAY 10/04 completed Not Available Not Available Not Available nortriptyli ne 10 mg capsule TAKE 1 CAPSULE BY MOUTH DAILY RESENT ON 02/07/2020 active Not Available Not Available No t Available clotrimazol e-betametha sone 1 %-0.05 % topical cream ADA EXT AA BID 05/24 completed Not Available Not Available Not Available lidocaine 5 % topical patch 01/08 completed Not Available Not Available Not Available telmisartan 80 mg tablet TAKE 1 TABLET BY MOUTH DAILY 03/23 completed Not Available Not Available Not Available oxycodone 5 mg capsule TK 1 C PO EVERY 4 HOURS PRN 01/08 completed Not Available Not Available Not Available docusate sodium 100 mg capsule active Not Available Not Available N ot Available oxybutynin chloride ER 5 mg tablet,exte nded release 24 hr TAKE 1 TABLET BY MOUTH EVERY DAY 03/23 completed Not Available Not Available Not Available gabapentin 300 mg capsule Take 1 capsule 3 times a day by oral route for 30 days. 03/23 completed Not Available Not Available Not Available omeprazole 20 mg capsule,del ayed release TAKE 1 CAPSULE BY MOUTH TWICE DAILY 03/23 completed Not Available Not Available Not Available diclofenac sodium 75 mg tablet,erin yed release 12/08 completed Not Available Not Available Not Available verapamil ER (SR) 240 mg tablet,exte nded release TK 1 T PO D IN THE MORNING 12/08 completed Not Available Not Available Not Available lisinopril 5 mg tablet TK 1 T PO D 12/08 completed Not Available Not Available Not Available diclofenac sodium 50 mg tablet,erin yed release TK 1 T PO BID WF 05/30 completed Not Available Not Available Not Available telmisartan 20 mg tablet TAKE 1 TABLET BY MOUTH DAILY 03/23 completed Not Available Not Available Not Available lorazepam 1 mg tablet 06/29 completed Not Available Not Available Not Available diazepam 10 mg tablet TAKE 1 TABLET BY MOUTH ONCE 10/04 completed Not Available Not Available Not Available albuterol sulfate HFA 90 mcg/actuati on aerosol inhaler INHALE 2 PUFFS BY MOUTH EVERY 4 TO 6 HOURS NEEDED FOR WHEEZING active Not Available Not Available No t Available fluticasone propionate 50 mcg/actuati on nasal spray,suspe nsion SHAKE LIQUID AND USE 1 SPRAY IN EACH NOSTRIL TWICE DAILY active Not Available Not Available No t Available doxycycline hyclate 100 mg tablet 06/29 completed Not Available Not Available Not Available dicyclomine 10 mg capsule 06/08 completed Not Available Not Available Not Available naproxen 500 mg tablet as neeeded 03/23 completed Not Available Not Available Not Available verapamil ER 240 mg 24 hr capsule,ext ended release TK 1 C PO D PLEASE ASK FOR ADDITIONA L REFILLS AT OV 01/08 completed Not Available Not Available Not Available oxycodone 5 mg tablet TAKE 1 TABLET BY MOUTH EVERY 6 HOURS NEEDED FOR SEVERE PAIN SCALE 7-10 03/23 completed Not Available Not Available Not Available cyclobenzap rine 5 mg tablet TK 1 TO 2 TS PO TID PRF MUSCLE SPASM 10/04 completed Not Available Not Available Not Available duloxetine 30 mg capsule,del ayed release TAKE 1 CAPSULE BY MOUTH DAILY. DO NOT CRUSH OR CHEW 10/04 completed Not Available Not Available Not Available duloxetine 60 mg capsule,del ayed release TAKE ONE CAPSULE BY MOUTH EVERY DAY active Not Available Not Available No t Available vitamin B complex active Not Available Not Available Not Available Vitamin D active Not Available Not Alice ilable Not Available nortriptyli ne active Not Available Not Available Not Available cholecalcif pari (vitamin D3) 1,250 mcg (50,000 unit) capsule active Not Available Not Available Not Available amlodipine 5 mg-valsarta n 320 mg tablet TAKE 1 TABLET BY MOUTH DAILY active Not Available Not Available No t Available amlodipine 5 mg-valsarta n 160 mg tablet TAKE 1 TABLET BY MOUTH 1 TIME EACH DAY active Not Available Not Available No t Available diclofenac 1 % topical gel APPLY 2 GRAMS TOPICALLY TO THE AFFECTED AREA FOUR TIMES DAILY active Not Available Not Available No t Available DOK 100 mg tablet TAKE 1 TABLET BY MOUTH UP TO TWICE DAILY NEEDED FOR CONSTIPAT ION 03/23 completed Not Available Not Available Not Available Vitamin D3 50 mcg (2,000 unit) capsule Take by oral route. 05/24 completed Not Available Not Available Not Available Allergy Relief (fexofenadi ne) 180 mg tablet TAKE 1 TABLET BY MOUTH DAILY active Not Available Not Available No t Available lidocaine 5 % topical ointment 05/24 completed Not Available Not Available Not Available glucosamine 116 mg-chondroi tin 100 mg-dietary supplement #25 capsule Take by oral route. 12/08 completed Not Available Not Available Not Available colchicine 0.6 mg capsule 12/08 completed Not Available Not Available Not Available Plenvu 140 gram-9 gram-5.2 gram powder packs COMPLETE ON DAY BEFORE THE PROCEDURE PER INSTRUCTI ONS 03/23 completed Not Available Not Available Not Available Vitals Date Recorded Body height Body mass index (BMI) Body weight Heart rate Oxygen saturation Oxygen saturation in Arterial blood by Pulse oximetry Systolic blood pressure Diastolic blood pressure Provider Name and Address Organization Details Last Updated DateTime 0 160.02 cm 33.3 kg/m2 02603.3 7 g 78 /min 100 % 100 % 167 mm[Hg] 70 mm[Hg] Russell george [place] [facility] 0 14:05:27 Date Recorded Body height Heart rate Oxygen saturation Oxygen saturation in Arterial blood by Pulse oximetry Systolic blood pressure Diastolic blood pressure Provider Name and Address Organization Details Last Updated DateTime 0 160.02 cm 85 /min 100 % 100 % 186 mm[Hg] 81 mm[Hg] Flavia Chadwickwell [facility] 0 10:25:49 Date Recorded Body height Heart rate Oxygen saturation Oxygen saturation in Arterial blood by Pulse oximetry Body mass index (BMI) Body weight Systolic blood pressure Diastolic blood pressure Provider Name and Address Organization Details Last Updated DateTime 0 160.02 cm 87 /min 98 % 98 % 35.4 kg/m2 80238.4 7 g 138 mm[Hg] 69 mm[Hg] Flavia Chadwickwell [facility] 0 09:00:44 Date Recorded Oxygen saturation Oxygen saturation in Arterial blood by Pulse oximetry Systolic blood pressure Diastolic blood pressure Provider Name and Address Organization Details Last Updated DateTime 03/23/2022 97 % 97 % 152 mm[Hg] 81 mm[Hg] Russell george [facility] 2 12:55:47 Date Recorded Body height Body mass index (BMI) Body weight Heart rate Provider Name and Address Organization Details Last Updated DateTime 03/23/2022 160.02 cm 35.4 kg/m2 61061.47 g 80 /min Dillan West MD [address] [facility] , [address], [place], [address], [place] [facility] 03/23/2022 14:20:14 Social History Question Answer Notes LastModified by Organizat ion Details LastModified Time Tobacco Smoking Status Former Smoker Quit x 30 years Not Available [employer] 02/16/2020 03:16:11 What Is Your Level Of Alcohol Consumption? 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 02/24/2018 [id number] Information not available 02/16/2020 How Many Years Have You Smoked Tobacco? 2 [id number] Information not available 02/16/2020 Sex: Unknown Functional Status None recorded. Mental Status None recorded. Family History Relationship Description Onset Age of this Age Resolved Age Notes LastModified by Organization Details LastModified Time Father No current problems or disability [email or web address] Not available 01/08 09:22:50 Mother No current problems or disability [email or web address] Not available 01/08 09:22:50 Medical History Condition Response Hyperthyroidism Y Arthritis Y Irritable Bowel Syndrome Y Gynecological HistoryNo gynecological history recorded. Obstetrics History GPAL:G 0 P 0 0 0 0 Past Encounters Encounter ID Performer Location Encounter Start Date Encounter Closed Date Diagnosis/Indication Diagnosis SNOMED-CT Code Diagnosis ICD10 Code Diagnosis Note [id number] Dillan West MD PAIN OFFICE [address] [place] [address] 01/08/2017 08:42:52 01/11/2017 10:21:59 Lumbosacral spondylosis without myelopathy 23367788 M47.817 Lumbar post-laminectomy syndrome 860810081 M96.1 Displaceme nt of lumbar intervertebral disc without myelopathy 44970304 M51.26 Spinal dee nosis of lumbar region 37249834 M48.06 [id number] Dillan West MD PAIN OFFICE [address] [place] [address] 01/27/2017 10:18:45 01/28/2017 09:27:51 Lumbosacral spondylosis without myelopathy 29693059 M47.817 Lumbar post-laminectomy syndrome 240290469 M96.1 Displaceme nt of lumbar intervertebral disc without myelopathy 75765174 M51.26 Spinal dee nosis of lumbar region 47146439 M48.06 [id number] Dillan West MD PAIN OFFICE [address] [place] [address] 02/23/2017 10:08:21 02/23/2017 11:11:16 Lumbosacral spondylosis without myelopathy 11583854 M47.817 Lumbar post-laminectomy syndrome 556086969 M96.1 Displaceme nt of lumbar intervertebral disc without myelopathy 48064215 M51.26 Spinal dee nosis of lumbar region 17791838 M48.062 [id number] Dillan West MD PAIN OFFICE [address] [place] [address] 06/08/2017 08:49:05 06/08/2017 09:14:04 Lumbosacral spondylosis without myelopathy 30532247 M47.817 Lumbar post-laminectomy syndrome 631711630 M96.1 Displaceme nt of lumbar intervertebral disc without myelopathy 03835394 M51.26 Spinal dee nosis of lumbar region 34565621 M48.062 [id number] Dillan West MD PAIN OFFICE [address] [place] [address] 02/22/2018 14:41:05 02/24/2018 09:42:46 Lumbosacral spondylosis without myelopathy 56525229 M47.817 Lumbar post-laminectomy syndrome 965308211 M96.1 Displaceme nt of lumbar intervertebral disc without myelopathy 20568857 M51.26 Spinal dee nosis of lumbar region 58906128 M48.061 [id number] Dillan West MD PAIN OFFICE [address] [place] [address] 12/08/2018 13:34:57 12/08/2018 14:55:16 Lumbosacral spondylosis without myelopathy 10889693 M47.817 Lumbar post-laminectomy syndrome 101879097 M96.1 Displaceme nt of lumbar intervertebral disc without myelopathy 82900004 M51.26 Spinal dee nosis of lumbar region 11377554 M48.061 [id number] Dillan West MD PAIN OFFICE [address] [place] [address] 05/24/2019 13:52:43 05/29/2019 12:04:20 Displacement of lumbar intervertebral disc without myelopathy 21531055 M51.26 Lumbar post-laminectomy syndrome 327815652 M96.1 Lumbosacra l spondylosis without myelopathy 74837736 M47.817 Spinal dee nosis of lumbar region 46427219 M48.061 [id number] Dillan West MD [facility] [address] [place] [address] 9 05/30/2019 10:04:00 05/30/2019 12:02:41 Displacement of lumbar intervertebral disc without myelopathy 76822112 M51.26 Lumbar post-laminectomy syndrome 668156137 M96.1 Lumbosacra l spondylosis without myelopathy 09446962 M47.817 Spinal dee nosis of lumbar region 48503586 M48.061 55347 Dillan West MD PAIN OFFICE [address] [place] [address] 06/29/2019 08:53:20 07/04/2019 08:34:02 Displacement of lumbar intervertebral disc without myelopathy 40792784 M51.26 Lumbar post-laminectomy syndrome 704177097 M96.1 Lumbosacra l spondylosis without myelopathy 70595509 M47.817 Spinal dee nosis of lumbar region 67232775 M48.061 33820 Dillan West MD PAIN OFFICE [address] [place] [address] 10/04/2020 10:36:19 10/04/2020 13:53:57 Displacement of lumbar intervertebral disc without myelopathy 10038171 M51.26 Lumbar post-laminectomy syndrome 105637398 M96.1 Lumbosacra l spondylosis without myelopathy 64912563 M47.817 Spinal dee nosis of lumbar region 02367821 M48.061 57615 Dillan West MD SV PAIN OFFICE [address] [place] [address] 03/23/2022 12:52:26 03/23/2022 14:49:20 Displacement of lumbar intervertebral disc without myelopathy 51902538 M51.26 Lumbar post-laminectomy syndrome 191066134 M96.1 Lumbosacra l radiculopathy 5553716 M54.17 Health Concerns Section Related Observation LastModified by Organization Detai ls LastModified Time None Recorded Concern Status LastModified by Organization Details LastModified Time None Recorded Advance Directives Directive None Recorded Payers Encounter Date Sequence Insurance Name Policy Number Policy Sheppard Covered Member ID Sheppard Member ID Guarantor Name 05/24/2019 2 [place] Lillie Jacqueline [id number] Lillie Jacqueline 05/24/2019 2 [place] [employer] Lillie Jacqueline [id number] Lillie Jacqueline 05/30/2019 2 [place] Lillie Jacqueline [id number] Lillie Jacqueline 05/30/2019 2 [place] [place] Lillie Jacqueline [id number] Lillie Jacqueline 06/29/2019 2 [place] Lillie Jacqueline [id number] Lillie Jacqueline 06/29/2019 2 [place] [employer] [employer] Lillie Jacqueline [id number] Lillie Jacqueline 10/04/2020 2 [place] Lillie Jacqueline [id number] Lillie Jacqueline 10/04/2020 2 [place] Lillie Jacqueline [id number] Lillie Jacqueline 03/23/2022 1 [facility] - DOS PRIOR TO 2022 - DUAL ELIGIBLE (MEDICARE REPLACEMENT/AD VANTAGE - HMO) Lillie Jacqueline [id number] Lillie Jacqueline Notes Date Note Type Note Provider Name and Address Organization Details Recorded Time 05/24/2019 text/html She is here for a follow up. She was last seen in 12/08/2018. She describes the low back pain as a sharp stabbing pain in the left side of her low back radiating into left lower extremity. She has no history of bladder or bowel incontinence.Recen t MRI Lumbar spine shows Moderate acquired central spinal stenosis at L3-4 . Mild acquired central spinal stenosis at L2-3. Dillan West MD [address] [place] [address] , [address], [place], [address], [facility] - Pain Management 05/30/2019 11:28:58 05/30/2019 text/html She is here for a trial of lumbar epidural steroid injection under fluoroscopic guidance. Dillan West MD [address] [facility] , [address], [place], [address], [facility] - Pain Management 05/31/2019 08:50:23 06/29/2019 text/html She is here for a follow up after a trial of lumbar epidural steroid injection under fluoroscopic guidance. She reports 80% pain benefit which is ongoing. 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 She has no history of bladder or bowel incontinence. She is seeing Dr. Velasco for a consult. Dillan West MD [address] [facility] , [address], [place], [address], [place] - [place] 07/05/2019 09:55:20 10/04/2020 text/html This is a follow up. She states she had a total knee replacement last year . She has been having shoulder pain and is now scheduled to have a right shoulder replacement with Dr. Azalea Paige . She states her low back pain is currently manageable. Dillan West MD [address] [facility] , [address], [place], [address], [facility] - Pain Management 10/04/2020 14:26:08 03/23/2022 text/html She is here for a follow up. She was last seen in 06/29/2019 and had a telehealth visit on 10/04/20.She is complaining of low back pain. She describes the low back pain as a sharp stabbing pain in the left side of her low back radiating into left lower extremity. Her pain was so severe she had gone to [facility] and was started on prednisone and oxycodone. She had a CT scan to rule out kidney stones. She has done physical therapy in the past with no pain benefit. She is doing a home exercise program with persistent pain. She had a lumbar epidural steroid injection in 05/30/2019 with good pain benefit for 8-10 months with a recent return of pain. She has no history of bladder or bowel incontinence.Recen t MRI Lumbar spine shows Moderate acquired central spinal stenosis at L3-4 . Mild acquired central spinal stenosis at L2-3.Recent CT scan shows Multilevel lumbar spine degenerative disease with stenosis. Lumbosacral junction osseous fusion. Nonspecific spinal and pelvic enthesopathy perhaps secondary to underlying spondyloarthropath y. New cyst in her ovarian region. Dillan West MD [address] [facility] , [address], [place], [address], [facility] 03/23/2022 16:20:37 OBGyn Episode No OBEpisode recorded.
--- OUTSIDE RECORDS SUMMARY | 2024-06-28 09:04 | XMS_ITS | Clinical Summary ---
Author Organization [facility] Address [address] [place] [address] Phone Care Team Providers Care Nuclear Worker Technician Name Role Phone Michael Orona MD Primary Care Provider [phone] Allergies Active Allergy Reactions Criticality Noted Date Comments Morphine 07/09/2021 Other reaction(s): Hallucinations Tolerated hydromorphone in past Oxycodone 07/09/2021 Other reaction(s): pruritis Medications DULoxetine (CYMBALTA) [address] capsule duloxetine 60 mg capsule,delaye d release TAKE ONE CAPSULE BY MOUTH EVERY DAY Active nortriptyline (PAMELOR) 10 MG capsule TAKE 1 CAPSULE BY MOUTH DAILY RESENT ON ACUTE OPIOID THERAPY/11/2019 1 Active B Complex Vitamins (VITAMIN B COMPLEX 100 IJ) vitamin B complex Active Turmeric 1053 MG tablet Take by mouth 2 Active Acetaminophen Extra Strength 500 MG tablet 2 Active fluticasone (FLONASE) 50 MCG/ACT nasal spray Administer into affected nostril(s) 2 Active Cholecalciferol (Vitamin D3) 1.25 MG (90094 UT) capsule 2 Active hydrALAZINE 25 MG tabletIndications :Primary hypertension Take 1 tablet (25 mg total) by mouth in the morning and 1 tablet (25 mg total) in the evening and 1 tablet (25 mg total) before bedtime. 270 tablet 3 3 Active Aspirin 325 MG capsule TAKE 1 TABLET BY MOUTH DAILY FOR 14 DAYS BEGINNING THE DAY AFTER SURGERY Active Lidocaine 3.75 % cream ADA 1 GRAM EXT AA TID UTD Active Cholecalciferol (Vitamin D3) 1.25 MG (57505 UT) capsule Take by mouth 5 Active fexofenadine (CARMEN) 180 MG tablet Take 1 tablet by mouth 1 (one) time each day Active Gemtesa 75 MG tablet Take 75 mg by mouth 1 (one) time each day 3 Active amLODIPine-valsar sheriff (Exforge) 10-160 MG per tablet Take 1 tablet by mouth 1 (one) time each day 30 tablet 11 3 Active Active Problems Problem Noted Date Diagnosed Date Pain in lower limb 01/20/2023 01/20/2023 Respiratory crackles 01/20/2023 01/20/2023 Aortic valve stenosis 10/20/2022 12/02/2022 Stiffness of left knee 09/01/2022 Pain in left knee 09/01/2022 12/02/2022 History of left total knee replacement 3 12/02/2022 Fibromyalgia 09/01/2022 12/02/2022 Abdominal pain 07/09/2021 Diarrhea 07/09/2021 Essential tremor 07/09/2021 Female pattern alopecia 07/09/2021 Gastroesophageal reflux disease 07/09/2021 Hypertensive disorder 07/09/2021 Idiopathic edema 07/09/2021 Lightheadedness 07/09/2021 Lumbago 07/09/2021 Migraine with aura 07/09/2021 Pain of breast 07/09/2021 Stomach cramps 07/09/2021 Urgent desire for stool 07/09/2021 Steatosis of liver 07/09/2021 Osteoarthritis 07/09/2021 Obesity 07/09/2021 Vasovagal syncope 07/09/2021 Varicose veins of lower extremity 07/09/2021 Patient encounter status 06/13/2021 Displacement of lumbar inter vertebral disc without myelopathy 01/11/2017 Lumbar post-laminectomy syndrome 01/11/2017 Lumbosacral spondylosis without myelopathy 01/11 Spinal stenosis of lumbar region 01/11/2017 Immunizations Name Administration Dates Next Due Influenza Whole 01/06/2012,02/05/2009 Influenza, Unspecified 02/25/2022,2020,04/30/2020,04/10/2019 ,03/09/2018,04/13/2016,04/17/2014, 3 Pfizer SARS-COV-2 03/05/2021,08/04/2020,07/15/19 21 Pneumococcal Conjugate 13-Valent 12/07/2016 Pneumococcal Polysaccharide 06/07/2019 Shingrix 12/23/2020,10/23/2020 Tdap 12/02/2007 Zoster 12/04/2014 Family History Medical History Relation Comments Hypertension Mother Relation Status Comments Father Other Mother Social History Tobacco Use Types Packs/Day Years Used Date Smoking Tobacco: Never Smokeless Tobacco: Never Alcohol Use Standard Drinks/Week Comments Not Currently 0 (1 standard drink = 0.6 oz pur e alcohol) Comments Unknown Sex and Gender Information Value Date Recorded Sex Assigned at Not on file Legal Sex Female 10:52 AM EST Gender Identity Not on file Sexual Orientation Not on file Last Filed Vital Signs Vital Sign Reading Time Taken Comments Blood Pressure 126/76 01/20/2023 1:59 PM EDT Pulse 84 01/20/2023 1:59 PM EDT Temperature - - Respiratory Rate - - Oxygen Saturation 98% 01/20/2023 1:59 PM EDT Inhaled Oxygen Concentration - - Weight 95.1 kg (209 lb 9.6 oz) 01/20/2023 1:59 P M EDT Height 160 cm (5' 3 ) 01/20/2023 1:59 PM EDT Body Mass Index 37.13 01/20/2023 1:59 PM EDT Plan of Treatment Health Maintenance Due Date Last Done Comments Breast Cancer Screening 1950 Colorectal Cancer Screening: Annual FOBT 08/21/2000 Colorectal Cancer Screening: Colonoscopy 08/21/2000 Colorectal Cancer Screening: Sigmoidoscopy 08/21/2000 Influenza Vaccine (#1) 2024 , 02/13/2021, 04/30/2020, Additional history exists Pneumococcal Vaccine: 65+ Years Completed 06/07/2019, 12/07/2016 Hepatitis B Vaccine Aged Out No longe r eligible based on patient's age to complete this topic Insurance [facility] ([id number]) [facility] ([id number]) Care Teams Nuclear Worker Technician Relationship Specialty Start Date End Date Michael Orona MD [address] PCP - General Internal Medicine 03/19/21
--- OUTSIDE RECORDS SUMMARY | 2024-06-28 09:04 | XMS_ITS | Referral Summary ---
Author Organization [facility] Address [address] [place] [address] Care Team Providers Care Drywall Sander Name Role Phone Michael Orona Primary Care Provider [phone] Allergies No known active allergies Medications aspirin 325 mg EC tablet TK 1 T PO BID MEDICATION TO BE STARTED AFTER SURGERY 0 Active telmisartan (MICARDIS) 20 mg tablet Take 20 mg by mouth daily. 0 Active verapamil SR (CALAN SR) 180 mg tablet 0 Active traMADoL (ULTRAM) 50 mg tablet TK 1 T PO Q 12 H UTD PRF PAIN. DO NOT DRIVE WHILE TAKING THIS MEDICATION 0 Active lidocaine-pril ocaine (EMLA) cream ADA 1 GRAM EXT AA TID UTD 0 Active nortriptyline (PAMELOR) 10 mg capsule TAKE 1 CAPSULE BY MOUTH DAILY RESENT ON ACUTE OPIOID THERAPY/11/2019 1 Active vitamin B complex capsule Take 1 capsule by mouth daily. Active vitamin D3 25 mcg (1,000 unit) capsule Take 1 capsule by mouth daily. Active DULoxetine DR (CYMBALTA) 60 mg capsule duloxetine 60 mg capsule,delayed release TAKE ONE CAPSULE BY MOUTH EVERY DAY Active methocarbamoL (ROBAXIN) 500 mg tablet methocarbamol 500 mg tablet TAKE 1 TABLET BY MOUTH THREE TIMES DAILY Active Active Problems No known active problems Immunizations Immunization Administration Dates Next Due Influenza, High Dose Seasonal, Quadrivalent PF 1 07/01/2019 Zoster Vaccine, Live 12/04/2014 Social History Tobacco Use Types Packs/Day Years Used Date Smoking Tobacco: Never Smokeless Tobacco: Never Alcohol Use Standard Drinks/Week Comments Not Currently 0 (1 standard drink = 0.6 oz pur e alcohol) Comments Unknown Sex and Gender Information Value Date Recorded Sex Assigned at Female 06/26/2020 12:30 PM EST Legal Sex Female 1:09 PM EST Gender Identity Female 06/26/2020 12:30 PM EST Sexual Orientation Choose not to disclose 2020 12:30 PM EST Last Filed Vital Signs Vital Sign Reading Time Taken Comments Blood Pressure 176/78 05/17/2020 11:20 AM EST Pulse 73 05/17/2020 11:20 AM EST Temperature - - Respiratory Rate - - Oxygen Saturation - - Inhaled Oxygen Concentration - - Weight 87.1 kg (192 lb) 05/17/2020 11:20 AM EST Height 160 cm (5' 3 ) 05/17/2020 11:20 AM EST Body Mass Index 34.01 05/17/2020 11:20 AM EST Plan of Treatment Not on file Insurance MEDICARE [facility] Care Teams Drywall Sander Relationship Specialty Start Date End Date [address] [place] [address] PCP - General Internal Medicine 05/17/20
--- OUTSIDE RECORDS SUMMARY | 2024-06-28 09:04 | XMS_ITS ---
Author Organization [facility] Address [address] [place] [address] Care Team Providers Care Dot Etcher Name Role Phone Michael Orona MD Primary Care Provider Unavailab He Bee Unavailable [phone] REASON FOR VISIT PCP 07/09/23 Medications Medication SIG (Take, Route, Frequency, Duration) Notes Start Date End Date Status ASO Ankle/Foot Stablizing AFO As directed Wear Daily for as needed Active Encounters Encounter Location Date Provider Diagnosis [facility] [address] [address] 08/24/2023 He Jade Pain in right foot [...] directe d Wear Daily for as needed Next Appt Details Follow Up: 4 Weeks, Reason: Progress Notes * Maximo BLANCAB:[birth year] (73 yo F)Acc No.[id number]:08/24/2023 Progress Note Patient:?Lillie BLANCA Provider:?He Jade DPM :1950???Age:73 Y???Sex:Female D ate:08/24/2023 Address:[address] [place], [place] [address] Pcp:Michael Orona MD Subjective: * Chief Complaints: * ???1. PCP 07/09/23. * HPI: ???Foot Pain:?Nature:?sharp, swelling, aching.?Location?Top, Midfoot, [...] sleeping?admits.?Brain disorder?denies.?Numbness?denies.?Balance trouble?admits.?Confusion?denies.?Fainting/blackouts?denies.?Tingling?admits.?Tr emors?admits.? * Medical History:? Objective: * Vitals:? * Examination: ???General Examination: ?GENERAL APPEARANCE:?pleasant, alert, [...] ?PALPATION:?No interspace pain noted on palpation.?Vascular: ?DP PULSES (B):?2/4, B/L.?PT PULSES (B):? 1/4, B/L.?CAPILLARY FILL TIME:?3 secs. per digit, B/L.?TEMPERTURE GRADIENT (C):?warm to cool, proximal to distal, B/L.?EDEMA (C):? 2/4, B/L, Ankle(s), Leg(s).?TELANGECTASIA:? present.?VARICOSITIES:? present, moderate, [...] pronation with, anterior break in cyme line.? Assessment: * Assessment: 1.?Pain in right foot - M79. 671 (Primary)???2.?Primary osteoarthritis, right ankle and foot - M19.071???3.?Metatarsalgia, right foot - M77.41???4.?Tailor's bunion of right foot - M21.621???5.?Plantar fascial fibromatosis - M72.2??? Plan: * Treatment: * Procedure Codes:?10993 X-RAY EXAM OF RIGHT ANKLE 3V, Modifiers: 26 , RT, L1902 AFO ANK GAYOLANDA PREFAB W FIT ADJ, Modifiers: RT * Follow Up:?4 Weeks * Images: * The named appointment provid er may or may not be the originator of this progress note, and it is not deemed complete until electronically signed by the appointment provider. Sign off status: Pending * Provider:?He Jade DPM Date:? 024 Generated for Amando awad/Hien/eTransmitting on:?06/28/2024 09:04 AM EST History and Physical Notes * HPI (History of Present Illness) Category Sub-Category Detail Notes Category Not es Foot Pain Aggrevated: any pressure, shoes, after d riving car Onset/Cause: unknown, kingies lizette lopez Course: worse in past 4-5 [...]
--- OUTSIDE RECORDS SUMMARY | 2024-06-28 09:04 | XMS_ITS | Patient Health Record ---
Author Organization [facility] Address [address] [place] [address] Care Team Providers Care Slaughterer Religious Ritual Name Role Phone Michael Orona MD Primary Care Provider UnavailHe Lujan Unavailable [phone] Allergies Allergen (clinical drug ingredient) Drug/Non Drug Allergy documented on EMR Reaction Allergy Type Onset Date Status morphine Morphine Unknown Drug Allergy Active Reason For Referral No Information Medications Medication SIG (Take, Route, Frequency, Duration) Notes Start Date End Date Status Vitamin D Active ASO Ankle/Foot Stablizing AFO As directed Wear Daily for as needed Active Voltaren 1 % as directed Externally 05/29/2022 Active Gemtesa Active amLODIPine Besylate 5 MG 1 tablet Orally Once a day for 30 day(s) Active B Complex Active DULoxetine HCl 60 MG 1 capsule Orally On ce a day for 30 day(s) Active Fish Oil Active hydrALAZINE HCl 25 MG 1 tablet with food Orally Three times a day for 30 day(s) Active Nortriptyline HCl 10 MG 1 capsule Orally Once a day for 30 day(s) Active Social History Tobacco Use: Social History [...] Are you an other tobacco user? No Problems Problem Type SNOMED Code ICD Code Onset Dates Problem Status W/U Status Risk Notes Problem Localized, primary osteoarthritis of the ankle and/or foot (090924878) Primary osteoarthrit is, right ankle and foot (M19.071) Active confirmed Vital Signs Height 5ft 3 in in 07/23/2023 Weight 210 lbs 07/23/2023 BMI 37.2 kg/m2 07/23/2023 Encounters Encounter Location Date Provider Diagnosis [facility] [address] 07/23/2023 He Jade Pain in right foot M79.671 ; Primary osteoarthritis, right ankle and foot M19.071 ; Metatarsalgia, right foot M77.41 ; Tailor's bunion of right foot M21.621 and Plantar fascial fibromatosis M72.2 [facility] [place] [address] [place] [address] 08/23/2023 He Jade Assessments Encounter Date Diagnosis (ICD Code) Assessment Notes Treatment Notes Treatment Clinical Notes Section Notes 07/23/2023 Pain in right foot (ICD-10 - M79.671) 07/23/2023 Primary osteoarthritis, right ankle and foot (ICD-10 - M19.071) 07/23/2023 Metatarsalgia, right foot (ICD-10 - M77.41) 07/23/2023 Tailor's bunion of right foot (ICD-10 - M21.621) 07/23/2023 Plantar fascial fibromatosis (ICD-10 - M72.2) Plan Of Treatment Pending Test Test Name Order Date X ray : Foot, right 3V 05/29/2022, J0702- INJECT or DRAIN, JOINT/BUR SA 05/25/2023, [id number]/INJECT, JOINT/BURSA 0 05/25/2023, [id number]-BLETK/INJECT, JOINT/BURSA 0 10/27/2022 X ray : Ankle, right 3V 07/23/2023 Insurance Providers Payer Name Payer Address Payer Phone Subscriber Number Group Number Insured Name Patient Relationship to Insured Coverage Start Date Coverage End Date [facility] [employer] Claims [address] [place] [address] [id number] Lillie Phillips Self - patient is the insured Medical (General) History Medical History History ICD Code Arthritis covid-19 Depression Fibromyalgia Headaches/Migraines High blood pressure Numbness Joint implants/screws Bone implants/screws Surgical History Surgery Date(Month/Year) knee replacement 12/20/20 shoulder replacement 07/22/21 elbow sx 11/17/21
--- OUTSIDE RECORDS SUMMARY | 2024-06-28 09:05 | XMS_ITS | Clinical Summary ---
Author Organization [facility] Address [address] [place] [address] Care Team Providers Care J2Ee Java Developer Name Role Phone Michael Orona Primary Care Provider [phone] Allergies No known active allergies Medications aspirin [...] BY MOUTH DAILY RESENT ON ACUTE OPIOID THERAPY 1 Active vitamin B complex capsule Take [...] 05/17/2020 11:20 AM EST Plan of Treatment Health Maintenance Due Date Last Done Comments Cologuard 1950 Colon Cancer Screening 1950 Colonoscopy 1950 FOBT / Fit Test 1950 Sigmoidoscopy 1950 DTaP,Tdap,and Td Vaccines (1 - Tdap) 08/21/1973 Osteoporosis Screening 08/21/2001 COVID-19 Vaccine (2023- season) 2024 03/05/2021, 08/04/2020, 07/14/2020 Influenza Vaccine (#1) 2024 , 04/30/2020, 04/30/2020, Additional history exists Alcohol/Substance Use Screening 05/03/2024 Health Care Proxy Review 05/03/2024 RSV Vaccine (60+ years old and patients) (1 - 1-dose 75+ series) 08/21/2026 Pneumococcal Vaccine: 50+ Years Completed 06/07/2019, 12/07/2016 Zoster Vaccines Completed 12/23/2020, 10/02, 12/04/2014 Hepatitis B Vaccines Aged Out No long er eligible based on patient's age to complete this topic Insurance MEDICARE [facility] Care Teams J2Ee Java Developer Relationship Specialty Start Date End Date Michael Orona [address] [place] [address] PCP - General Internal Medicine 05/17/20
== END 2024-06-28 09:08 | disposition home or self-care (01) ==
PROVIDERS: Visit Provider Internal Medicine Hypertension Specialist
DX: I10 Essential (primary) hypertension (principal)
CPT/HCPCS: 99214

== ENCOUNTER → 2024-06-28 08:32 | Outpatient (BNVA) | payer OTHER, SELFPAY | PROVIDERS: Visit Provider Internal Medicine Hypertension Specialist | DX: I10 Essential (primary) hypertension (principal); Z79.899 Other long term (current) drug therapy | CPT/HCPCS: 99212 ==

== ENCOUNTER 2024-08-30 14:46 | Outpatient (REF) | payer OTHER, SELFPAY ==
--- OUTSIDE RECORDS SUMMARY | 2024-08-30 15:55 | XMS_ITS | Clinical Summary ---
Author Organization [facility] Address [address] [place] [address] Care Team Providers Care Net Development Manager Name Role Phone Unavailable Primary Care Provider Unavailabl e Encounters Date Type Department Care Team Description 08/16/2024 Telephone [facility] [address] [place] [address] Noel Tucker MD Scheduling from Last 3 Months Social History Tobacco Use Types Packs/Day Years [...] - 2023-2 5 season) 2024 Influenza Vaccine (Season Ended) 2025 RSV Immunization Adult Patie nts (1 - 1-dose 75+ series) 08/21/2026 HIB [...] age to complete this topic Meningococcal B Vaccine Aged Out No l onger eligible based on patient's age to complete this topic RSV Immunization Patients Un abilio 20 months Aged Out No longer eligible b ased on patient's age to complete this topic Varicella Vaccines Aged Out No longer eligible based on patient's age to complete this topic
--- OUTSIDE RECORDS SUMMARY | 2024-08-30 15:55 | XMS_ITS ---
Author Organization [facility] Address [address] [place] [address] Care Team Providers Care Finish Carpenter Name Role Phone Michael Orona MD Primary Care Provider Unavailab He Bee Unavailable [phone] REASON FOR VISIT PCP 07/09/23 Medications Medication SIG (Take, Route, Frequency, Duration) Notes Start Date End Date Status ASO Ankle/Foot Stablizing AFO As directed Wear Daily for as needed Active Encounters Encounter Location Date Provider Diagnosis [facility] [address] [address] 08/24/2023 He Jade Pain in right foot [...] * Maximo BLANCAB:[birth year] (74 yo F)Acc No.[id number]:08/24/2023 Progress Note Patient:?Lillie BLANCA Provider:?He Jade DPM :1950???Age:73 Y???Sex:Female D ate:08/24/2023 Address:[address] [place], [place] [id number] Pcp:Michael Orona MD Subjective: * Chief Complaints: [...] - M72.2??? Plan: * Treatment: * Procedure Codes:?87160 X-RAY EXAM OF RIGHT ANKLE 3V, Modifiers: [...] DPM Date:? 024 Generated for Amando awad/Hien/eTransmitting on:?08/30/2024 03:55 PM EDT History and Physical Notes * HPI [...]
--- OUTSIDE RECORDS SUMMARY | 2024-08-30 15:55 | XMS_ITS | Clinical Summary ---
Author Organization [facility] Address [address] [place] [address] Phone Care Team Providers Care Global Transportation Manager Name Role Phone Michael Orona MD Primary Care Provider [phone] Allergies Active Allergy Reactions Criticality Noted Date [...] 2 Active Cholecalciferol (Vitamin D3) 1.25 MG (17596 UT) capsule 2 Active hydrALAZINE 25 MG [...] UTD Active Cholecalciferol (Vitamin D3) 1.25 MG (29064 UT) capsule Take by mouth 5 Active [...] Spinal stenosis of lumbar region 01/11/2017 Immunizations Immunization Administration Dates Next Due Influenza Whole 01/06/2012,02/05/2009 [...] Colorectal Cancer Screening: Sigmoidoscopy 08/21/2000 Influenza Vaccine (Season Ended) 2025 02/25/2022, 02/13/2021, 04/30/2020, Additional history exists Pneumococcal Vaccine: 50+ Years Completed 06/07/2019, 12/07/2016 Hepatitis B Vaccine Aged Out No longe r eligible based on patient's age to complete this topic Insurance [facility] ([id number]) [facility] ([id number]) Care Teams Global Transportation Manager Relationship Specialty Start Date End Date Michael Orona MD [address] PCP - General Internal Medicine 03/19/21
--- OUTSIDE RECORDS SUMMARY | 2024-08-30 15:55 | XMS_ITS ---
Author Organization [facility] Address [address] [place] [address] Care Team Providers Care Director Biomedical Engineering Name Role Phone Michael Orona MD Primary Care Provider UnavailHe Lujan Unavailable [phone] Allergies Allergen (clinical drug ingredient) Drug/Non Drug [...] 07/23/2023 Encounters Encounter Location Date Provider Diagnosis [facility] [place] [address] [place] [address] 07/23/2023 [place] Pain in right foot M79.671 [...] * Maximo BLANCAB:[birth year] (72 yo F)Acc No.[id number]:07/23/2023 Progress Note Patient:?Lennie Blancalia Provider:?He Jade DPM :1950???Age:72 Y???Sex:Female D ate:07/23/2023 Address:[address] [place] [id number] Pcp:Michael Orona MD Subjective: * Chief Complaints: [...] - M72.2? Plan: * Treatment: * Procedure Codes:?10653 X-RAY EXAM OF RIGHT ANKLE 3V, Modifiers: 26 , JMB3713 AFO ANK GAUNTLT PREFAB W FIT ADJ, [...] DPM Date:? 024 Generated for Amando awad/Hien/Pageitting on:?08/30/2024 03:55 PM EDT History and Physical [...]
--- OUTSIDE RECORDS SUMMARY | 2024-08-30 15:55 | XMS_ITS | Data Portability ---
Author Organization [facility], PAIN OFFICE Address [address] [facility] [address] [place] [address] Care Team Providers Care Rehabilitation Liaison Name Role Phone JAVIER TRACEY Primary Care Provider [phone] Assessment Encounter Date Assessment Date Assessment LastModified [...] appointment has been booked. She needs a truck driver rubbish collector on the day of the procedure. I [...] appointment has been booked. She needs a truck driver rubbish collector on the day of the procedure. [email or web address] Not available 03/23/2022 14:21:57 Plan of Treatment Reminders Order Date Submit Date Provider Last Modified By Organization Details Last Modified Time Details Appointments None recorded. Lab None recorded. Referral None recorded. Procedures None recorded. Surgeries None recorded. Imaging None recorded. Medication Orders gabapentin 300 mg capsule 2019 020 [employer] [address] [facility] [id number], [address] [place], [place], [id number], 13:00:17 Patient TargetsNo targets recorded. Patient Instructions Encounter Date Encounter Id Patient Instructions Last Modified By Organization Details Last Modified Time 05/24/2019 [id number] She was advised to continue with activities as tolerated. [email or web address] Not available 05/29/2019 12:01:06 05/30/2019 [id number] She was advised to continue with activities as tolerated. [email or web address] Not available 05/30/2019 11:29:57 06/29/2019 [id number] She was advised to continue with activities as tolerated. [email or web address] Not available 07/04/2019 08:30:21 10/04/2020 [id number] She was advised to continue with activities as tolerated. [email or web address] Not available 10/04/2020 13:52:51 03/23/2022 [id number] She was advised to continue with activities as tolerated. [email or web address] Not available 03/23/2022 14:20:35 Reason for Referral None Reported. Problems Name Problem SNOMED Code Status Onset Date Resolution Date Notes Provider Name and Address Organization Details Recorded Time Lumbosacral spondylosis without myelopathy 86300346 Active 2016 Dillan george MD [address] , [address], [facility] [place], [address], [place] [facility] 7 10:14:12 Lumbar post-laminecto my syndrome 292710789 Active 2016 Dillan george MD [address] , [address], [facility] [place] [place], [address], [place] [facility] 7 10:14:14 Displacement of lumbar intervertebral disc without myelopathy 28221099 Active 2016 Dillan george MD [address] , [address], [facility] [place] [place], [address], [place] [facility] 7 10:14:15 Spinal stenosis of lumbar region 59075098 Active 2016 Dillan george MD [address] , [address], [facility] [place] [place], [address], [place] [facility] 7 10:14:17 Problem Notes None recorded. Procedures Surgical History Date Name Laterality Status Provider Name and Address Organization Details Recorded Time 05/30/19 20 Lumbar Epidural steroid injection under fluoroscopic guidance completed Dillan West MD [address] , [address], [place], [address], [place] [facility] 05/30/2019 11:31:42 02/23/20 18 Fluoroscopic Guided Lumbar Facet Steroid Injections of levels completed Dillan West MD [address] , [address], [place], [address], [place] [facility] 02/24/2018 08:53:58 08/02/19 18 Other completed Joyce Whaley [place] [facility] 12/08/2018 14:20:26 01/28/20 17 Fluoroscopic Guided Lumbar Facet Steroid Injections of levels completed Dillan West MD [address] , [address], [place], [address], [place] [facility] 01/27/2017 [...] knee replacement completed Dillan West MD [address] [facility] , [address], [place], [address], [place] [facility] 10/04/2020 10:37:18 total shoulder replacement completed Dillan West MD [address] [facility] , [address], [place], [address], [place] [facility] 03/23/2022 14:48:43 Imaging Results None recorded. Procedure Notes None recorded. Medical Equipment None Reported. Allergies No known drug allergies Medications Name Sig Start Date Stop Date Status Note LastModified by Organization Details LastModified Time vitamin d3 1.25 mg (02822 u active Not Available Not Available Not [...] lidocaine-p rilocaine 2.5 %-2.5 % topical cream AAD 1 GRAM EXT AA TID UTD active [...] saturation in Arterial blood by Pulse oximetry Pain severity - 0-10 verbal numeric rating [Score] - Reported Systolic blood pressure Diastolic blood pressure Provider Name and Address Organization Details Last Updated DateTime 0 160.02 cm 33.3 kg/m2 48314.3 7 g 78 /min 100 % 100 % 9 167 mm[Hg] 70 mm[Hg] Russell george [place] [facility] 0 14:05:27 Date Recorded Body height Pain severity - 0-10 verbal numeric rating [Score] - Reported Heart rate Oxygen saturation Oxygen saturation in Arterial blood by Pulse oximetry Systolic blood pressure Diastolic blood pressure Provider Name and Address Organization Details Last Updated DateTime 0 160.02 cm 5 85 /min 100 % 100 % 186 mm[Hg] 81 mm[Hg] Flavia Maldonado [facility] 0 10:25:49 Date Recorded Body height Heart rate Oxygen saturation Oxygen saturation in Arterial blood by Pulse oximetry Body mass index (BMI) Body weight Systolic blood pressure Diastolic blood pressure Provider Name and Address Organization Details Last Updated DateTime 0 160.02 cm 87 /min 98 % 98 % 35.4 kg/m2 56169.4 7 g 138 mm[Hg] 69 mm[Hg] Flavia Chadwickwell [facility] 0 09:00:44 Date Recorded Oxygen saturation Oxygen saturation in Arterial blood by Pulse oximetry Pain severity - 0-10 verbal numeric rating [Score] - Reported Systolic blood pressure Diastolic blood pressure Provider Name and Address Organization Details Last Updated DateTime 2 97 % 97 % 7 152 mm[Hg] 81 mm[Hg] Russell george [place] [facility] 2 12:55:47 Date Recorded Body height Body mass index (BMI) Body weight Heart rate Provider Name and Address Organization Details Last Updated DateTime 03/23/2022 160.02 cm 35.4 kg/m2 63302.47 g 80 /min Dillan West MD [address] [place] [address] , [address], [place], [address], [place] [facility] 03/23/2022 14:20:14 Social History Question Answer Notes LastModified by Organizat ion Details LastModified Time Tobacco Smoking Status Former Smoker Quit x 30 years Not Available [employer] 02/16/2020 03:16:11 What Is Your Level Of Alcohol Consumption? 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 02/24/2018 [id number] Information not available 02/16/2020 How Many Years Have You Smoked Tobacco? 2 [id number] Information not available 02/16/2020 Sex: Unknown Functional [...] SNOMED-CT Code Diagnosis ICD10 Code Diagnosis Note 10339 Dillan West MD PAIN OFFICE [address] [place] [address] 01/08/2017 08:42:52 01/11/2017 10:21:59 Lumbosacral spondylosis without myelopathy 78347244 M47.817 Lumbar post-laminectomy syndrome 910121043 M96.1 Displaceme nt of lumbar intervertebral disc without myelopathy 26936611 M51.26 Spinal dee nosis of lumbar region 61054806 M48.06 75122 Dillan West MD PAIN OFFICE [address] [place] [address] 01/27/2017 10:18:45 01/28/2017 09:27:51 Lumbosacral spondylosis without myelopathy 91732690 M47.817 Lumbar post-laminectomy syndrome 640022423 M96.1 Displaceme nt of lumbar intervertebral disc without myelopathy 44818154 M51.26 Spinal dee nosis of lumbar region 29157182 M48.06 04871 Dillan West MD PAIN OFFICE [address] [place] [address] 02/23/2017 10:08:21 02/23/2017 11:11:16 Lumbosacral spondylosis without myelopathy 95034581 M47.817 Lumbar post-laminectomy syndrome 810673667 M96.1 Displaceme nt of lumbar intervertebral disc without myelopathy 61820359 M51.26 Spinal dee nosis of lumbar region 02488716 M48.062 45644 Dillan West MD PAIN OFFICE [address] [place] [address] 06/08/2017 08:49:05 06/08/2017 09:14:04 Lumbosacral spondylosis without myelopathy 86776150 M47.817 Lumbar post-laminectomy syndrome 280544228 M96.1 Displaceme nt of lumbar intervertebral disc without myelopathy 69222579 M51.26 Spinal dee nosis of lumbar region 77064152 M48.062 55792 Dillan West MD PAIN OFFICE [address] [place] [address] 02/22/2018 14:41:05 02/24/2018 09:42:46 Lumbosacral spondylosis without myelopathy 87515821 M47.817 Lumbar post-laminectomy syndrome 566692966 M96.1 Displaceme nt of lumbar intervertebral disc without myelopathy 30091534 M51.26 Spinal dee nosis of lumbar region 30553177 M48.061 04132 Dillan West MD PAIN OFFICE [address] [place] [address] 12/08/2018 13:34:57 12/08/2018 14:55:16 Lumbosacral spondylosis without myelopathy 68373372 M47.817 Lumbar post-laminectomy syndrome 566926713 M96.1 Displaceme nt of lumbar intervertebral disc without myelopathy 01013724 M51.26 Spinal dee nosis of lumbar region 71452170 M48.061 77772 Dillan West MD PAIN OFFICE [address] [place] [address] 05/24/2019 13:52:43 05/29/2019 12:04:20 Displacement of lumbar intervertebral disc without myelopathy 66493079 M51.26 Lumbar post-laminectomy syndrome 653161244 M96.1 Lumbosacra l spondylosis without myelopathy 56484040 M47.817 Spinal dee nosis of lumbar region 46785560 M48.061 22739 Dillan West MD [facility] PAIN OFFICE [address] [place] [address] 05/30/2019 10:04:00 05/30/2019 12:02:41 Displacement of lumbar intervertebral disc without myelopathy 75459437 M51.26 Lumbar post-laminectomy syndrome 791797210 M96.1 Lumbosacra l spondylosis without myelopathy 38025558 M47.817 Spinal dee nosis of lumbar region 24424100 M48.061 86191 Dillan West MD PAIN OFFICE [address] [place] [address] 06/29/2019 08:53:20 07/04/2019 08:34:02 Displacement of lumbar intervertebral disc without myelopathy 97172423 M51.26 Lumbar post-laminectomy syndrome 797251027 M96.1 Lumbosacra l spondylosis without myelopathy 84678556 M47.817 Spinal dee nosis of lumbar region 11841265 M48.061 91663 Dillan West MD PAIN OFFICE [address] [place] [address] 10/04/2020 10:36:19 10/04/2020 13:53:57 Displacement of lumbar intervertebral disc without myelopathy 45446364 M51.26 Lumbar post-laminectomy syndrome 809230344 M96.1 Lumbosacra l spondylosis without myelopathy 16702138 M47.817 Spinal dee nosis of lumbar region 19929881 M48.061 78734 Dillan West MD [facility] PAIN OFFICE [address] [place] [address] 03/23/2022 12:52:26 03/23/2022 14:49:20 Displacement of lumbar intervertebral disc without myelopathy 85015977 M51.26 Lumbar post-laminectomy syndrome 788377933 M96.1 Lumbosacra l radiculopathy 3055024 M54.17 Health Concerns Section Related Observation LastModified by Organization Detai ls LastModified Time None Recorded Concern Status LastModified by Organization Details LastModified Time None Recorded Advance Directives Directive None Recorded Payers Encounter Date Sequence Insurance Name Policy Number Policy Sheppard Covered Member ID Sheppard Member ID Guarantor Name 05/24/2019 2 [place] Lillie Jacqueline [id number] Lillie Jacqueline 05/24/2019 2 [place] Lillie Jacqueline [id number] Lillie Jacqueline 05/30/2019 2 [place] Lillie Jacqueline [id number] Lillie Jacqueline 05/30/2019 2 [place] Lillie Jacqueline [id number] Lillie Jacqueline 06/29/2019 2 [place] Lillie Jacqueline [id number] Lillie Jacqueline 06/29/2019 2 [place] Lillie Jacqueline [id number] Lillie Jacqueline 10/04/2020 2 [place] Lillie Jacqueline [id number] Lillie Jacqueline 10/04/2020 2 [place] [place] Lillie Jacqueline [id number] Lillie Jacqueline 03/23/2022 1 [facility] - DOS PRIOR TO 2022 - DUAL ELIGIBLE (MEDICARE REPLACEMENT/AD VANTAGE - HMO) Lillie Jacqueline [id number] Lillie Jacqueline Notes Date Note Type Note [...] Mild acquired central spinal stenosis at L2-3. Thenu Manikantan, MD [address] [facility] , [address], [place], [address], [place] [facility] 05/30/2019 11:28:58 05/30/2019 text/html She is here for a trial of lumbar epidural steroid injection under fluoroscopic guidance. Dillan West MD [address] [facility] , [address], [place], [address], [place] [facility] 05/31/2019 08:50:23 06/29/2019 text/html She is here for a follow up after a trial of lumbar epidural steroid injection under fluoroscopic guidance. She reports 80% pain benefit which is ongoing. She is still working as a high school library media specialist and states she wants to continue working. She has no history of bladder or bowel incontinence. She is seeing Dr. Velasco for a consult. Dillan West MD [address] [facility] , [address], [place], [address], [place] - [facility] 07/05/2019 09:55:20 10/04/2020 text/html This is a follow up. She states she had a total knee replacement last year . She has been having shoulder pain and is now scheduled to have a right shoulder replacement with Dr. Azalea Paige . She states her low back pain is currently manageable. Dillan West MD [address] [facility] , [address], [place], [address], [place] [facility] 10/04/2020 14:26:08 03/23/2022 text/html She [...] was so severe she had gone to [facility] and was started on prednisone and [...] her ovarian region. Dillan West MD [address] [facility] , [address], [place], [address], [facility] - Pain Management 03/23/2022 16:20:37 OBGyn Episode No OBEpisode recorded.
--- OUTSIDE RECORDS SUMMARY | 2024-08-30 15:55 | XMS_ITS ---
Author Organization [facility] Address [address] [place] [address] Care Team Providers Care Bonbon Cream Warmer Name Role Phone Michael Orona MD Primary Care Provider Unavailab He Bee [phone] REASON FOR VISIT cx 08/24/2023 Encounters Encounter Location Date Provider [facility] [address] [place] [address] 08/23/2023 He Jade Plan Of Treatment No Information Progress Notes * Jeremi BLANCADiazB:[birth year] (73 yo F)Acc No.[id number]:08/23/2023 Patient:?Lillie Blanca :1950???Age:73 Y???Sex:Female Address:[address] [place] [address], [address] * true * Date:? Generated for Printi ng/Faqueg/eTransmitting on:?08/30/2024 03:55 PM EDT
--- OUTSIDE RECORDS SUMMARY | 2024-08-30 15:55 | XMS_ITS | Encounter Summary ---
Author Organization [facility] Address [address] [place] [address] Phone Care Team Providers Care Regional Construction Manager Name Role Phone Michael Orona MD Primary Care Provider [phone] Encounter Details Date Type Department Care Team (Late st Contact Info) Description 05/26/2022 Telephone [facility] [address] [place] [address] Marshall Holder MD Social History [...] refill for hydralazine tiny, Please send to [facility] she is out of alexander meds thank you documented in this encounter Plan of Treatment Not on file documented as of this encounter Visit Diagnoses Not on filedocumented in this encounter Care Teams Regional Construction Manager Relationship Specialty Start Date End Date Michael Orona MD [facility] [address] [place], [place] PCP - General Internal Medicine 03/19/21 documented as of this encounter
--- OUTSIDE RECORDS SUMMARY | 2024-08-30 15:56 | XMS_ITS | Clinical Summary ---
Author Organization [facility] Address [address] [place] [address] Care Team Providers Care Supervisor Cell Room Name Role Phone Michael Orona Primary Care Provider [phone] Allergies No known active allergies Medications aspirin [...] Tdap) 08/21/1973 Osteoporosis Screening 08/21/2001 COVID-19 Vaccine ( season) 2024 03/05/2021, 08/04/2020, 07/14/2020 Alcohol/Substance Use Screening 05/03/2024 Health Care Proxy Review 05/03/2024 Influenza Vaccine (Season Ended) 2025 02/13/2021, 04/30/2020, 04/30/2020, Additional history exists RSV Vaccine (60+ years old and patients) (1 - 1-dose 75+ series) 08/21/2026 Pneumococcal Vaccine: 50+ Years Completed 06/07/2019, 12/07/2016 Zoster Vaccines Completed 12/23/2020, 10/02, 12/04/2014 Hepatitis B Vaccines Aged Out No long er eligible based on patient's age to complete this topic Insurance MEDICARE [facility] Care Teams Supervisor Cell Room Relationship Specialty Start Date End Date Michael Orona [address] [place] [address] PCP - General Internal Medicine 05/17/20
--- OUTSIDE RECORDS SUMMARY | 2024-08-30 15:56 | XMS_ITS | Patient Health Record ---
Author Organization [facility] Address [address] [place] [address] Care Team Providers Care Still Operator Gin Name Role Phone Michael Orona MD Primary Care Provider UnavaileH Lujan Unavailable [phone] Allergies Allergen (clinical drug ingredient) Drug/Non Drug [...] primary osteoarthritis of the ankle and/or foot (982699992) Primary osteoarthrit is, right ankle and foot (M19.071) Active confirmed Plan Of Treatment Pending Test Test Name Order Date X ray : Foot, right 3V 05/29/2022, J0702- INJECT or DRAIN, JOINT/BUR SA 05/25/2023, [id number]-INARF/INJECT, JOINT/BURSA 0 05/25/2023, Q8484-XLCSQ/INJECT, JOINT/BURSA 0 10/27/2022 X ray : Ankle, right 3V 07/23/2023 Insurance Providers Payer Name Payer Address Payer Phone Subscriber Number Group Number Insured Name Patient Relationship to Insured Coverage Start Date Coverage End Date [facility] [employer] Claims [address] [place] [address] [phone] [id number] Lillie Phillips Self - patient is the insured Medical (General) History Medical History History ICD Code Arthritis covid-19 Depression Fibromyalgia Headaches/Migraines High blood pressure Numbness Joint implants/screws Bone implants/screws Surgical History Surgery Date(Month/Year) knee replacement 12/20/20 shoulder replacement 07/22/21 elbow sx 11/17/21
--- OUTSIDE RECORDS SUMMARY | 2024-08-30 15:56 | XMS_ITS | Referral Summary ---
Author Organization [facility] Address [address] [place] [address] Care Team Providers Care Asset Specialist Name Role Phone Michael Orona Primary Care Provider [phone] Allergies No known active allergies Medications aspirin [...] of Treatment Not on file Insurance MEDICARE [facility] Care Teams Asset Specialist Relationship Specialty Start Date End Date Adwoa Michael [facility] [place] [address] PCP - General Internal Medicine 05/17/20
[2024-08-30 18:38] LABS: Anion Gap 15 (12-20); Blood Urea Nitrogen 26 mg/dL (9-16); Calcium 9.8 mg/dL (8.4-10.2); Carbon Dioxide 22 mmol/L (22-29); Chloride 103 mmol/L (96-108); Estimated Glomerular Filt Rate > 60; Glucose Random 96 mg/dL (60-115); Potassium 3.8 mmol/L (3.3-5.1); Sodium 136 mmol/L (135-145)
== END 2024-08-30 14:47 | disposition home or self-care (01) ==
LOC: HO.HKASLDS 14:46
PROVIDERS: Visit Provider Internal Medicine Hypertension Specialist
DX: I10 Essential (primary) hypertension (principal)
CPT/HCPCS: 36415; 80048

== ENCOUNTER 2024-09-06 12:02 | Outpatient (AMB) | payer OTHER, SELFPAY ==
[2024-09-06 12:04] VITALS: BP 130/64; PULSE 80; O2SAT 98; BMI 37.7
--- NOTE | 2024-09-06 12:04 | HO.NEPHOV_ITS ---
Vital Signs 09/06/24 12:04 Height 5 ft 3 in Weight 213 lb BMI 37.7 BP 130/64 Blood Pressure Location Lt brachial Position Sitting Pulse 80 Pulse Source Pulse Oximeter Pulse Oximetry (%) 98 Oxygen Delivery Method Room Air Intake Visit Reasons: 6 mnts f/u Conf Restorative Art Embalmer Required: No Accompanied by: Grand Child Allergies No Known Allergies Allergy (Verified 09/06/24 12:07) Medication List - Last Reconciled 09/06/24 by Marshall Holder MD albuterol sulfate 90 mcg/actuation inhalation PRN amlodipine 10 mg PO DAILY duloxetine 60 mg PO DAILY fluticasone propionate 50 mcg/actuation 1 spray intranasal BID PRN hydralazine 50 mg PO TID losartan 25 mg PO DAILY magnesium 250 mg PO DAILY PRN omeprazole 20 mg PO DAILY PRN simvastatin 10 mg PO BEDTIME valacyclovir 500 mg PO BID PRN vitamin B complex 1 cap PO DAILY HPI Comments Details: [age] old woman with a history of longstanding hypertension cholelithiasis with transaminitis fatty liver and chronic back pain with obesity he is here for follow-up regarding hypertension. She has been on verapamil 180 mg twice a day and telmisartan 80 mg a day. Today she has no specific complaints. Back in July of 2021 she developed cough with Lotrel. Lotrel was switched to valsartan with amlodipine combination which she has been able to tolerate. She has lost about 14 lbs 03/22/2024 ;Overall doing well no new issues. She has occasional leg edema mostly in the evenings no shortness of breath. 06/28/24: Events noted; Recently had a spike in BP . No change in medications 09/06/24: BP has been stable. No new issues. No dyspnea at rest [facility] Social History Alcohol intake: never Patient Tobacco Use Status: Never used Tobacco Physical Exam Vital Signs: Last Vital Signs Pulse 80 09/06/24 12:04 BP 130/64 09/06/24 12:04 Pulse Ox 98 09/06/24 12:04 Oxygen Delivery Method Room Air 09/06/24 12:04 BMI result Body Mass Index 37.7 Const General: comfortable; No acute distress Orientation/consciousness: patient oriented x3 Eyes General: appearance normal, both eyes and all related structures Visual Rivers: normal visual rivers by confrontation Neck Neck: Yes supple and Yes no JVD Resp Effort & Inspection: normal respiratory effort and respiratory effort not decreased Cardio Palpation: no palpable S3 and no palpable S4 Heart sounds: S1 normal heart sound present, S2 normal heart sound present, Murmur heart sound present (Ejection systolic) and no rubs GI Inspection: Yes normal to inspection Palpation (GI): Soft to palpation Percussion: Yes normal to percussion Auscultation: normal bowel sounds General: Yes no CVA tenderness Back/Spine/Pelvis Back: no CVA tenderness Skin General skin exam: no petechiae and no purpura Neuro General: patient oriented x3 and no focal motor deficits Extrem General: No clubbing and No edema Results Reviewed Results Reviewed: CT Angio in August 2024 Moderately severe Renal artery stenosis noted on Left ( [place] ) Nephrology Results: Sodium 136 mmol/L (135-145) 08/30/24 Potassium 3.8 mmol/L (3.3-5.1) 08/30/24 Chloride 103 mmol/L (96-108) 08/30/24 Carbon Dioxide 22 mmol/L (22-29) 08/30/24 BUN 26 mg/dL (9-16) H 08/30/24 Creatinine 0.76 mg/dL (0.5-1.4) 08/30/24 Calcium 9.8 mg/dL (8.4-10.2) 08/30/24 Assessment & Plan Assessment & Plan (1) HTN (hypertension): Code(s): I10 - Essential (primary) hypertension Category: Medical Plan 74-year-old woman with history of resistant hypertension. Left renal artery stenosis based on CTA Currently blood pressure is better controlled Renal function is stable. Will continue to manage medically If BP is difficult to control or if renal function deteriorates, would consider renal angiogram Stay on low-salt diet. She will benefit from weight loss as well. Continue with current medications No changes were made Medications: New miscellaneous medical supply (Blood Pressure Cuff) As directed 1 ea 0RF Coding Level of Care Code Est Pt Level 4 (84600) Diagnoses HTN (hypertension) I10
--- OUTSIDE RECORDS SUMMARY | 2024-09-06 13:20 | XMS_ITS | Referral Summary ---
Author Organization [facility] Address [address] [place] [address] Care Team Providers Care Cylinder Filler Name Role Phone Michael Orona Primary Care Provider [phone] Allergies No known active allergies Medications aspirin [...] of Treatment Not on file Insurance MEDICARE [facility] Care Teams Cylinder Filler Relationship Specialty Start Date End Date Adwoa Michael [facility] [place] [address] PCP - General Internal Medicine 05/17/20
--- OUTSIDE RECORDS SUMMARY | 2024-09-06 13:20 | XMS_ITS | Clinical Summary ---
Author Organization [facility] Address [address] [place] [address] Phone Care Team Providers Care Roller Billet Mill Name Role Phone Michael Orona MD Primary Care Provider [phone] Allergies Active Allergy Reactions Criticality Noted Date [...] 2 Active Cholecalciferol (Vitamin D3) 1.25 MG (37084 UT) capsule 2 Active hydrALAZINE 25 MG [...] UTD Active Cholecalciferol (Vitamin D3) 1.25 MG (45497 UT) capsule Take by mouth 5 Active [...] patient's age to complete this topic Insurance [facility] ([id number]) [facility] ([id number]) Care Teams Roller Billet Mill Relationship Specialty Start Date End Date Michael Oorna MD [address] PCP - General Internal Medicine 03/19/21
--- OUTSIDE RECORDS SUMMARY | 2024-09-06 13:20 | XMS_ITS | Patient Health Record ---
Author Organization [facility] Address [address] [place] [address] Care Team Providers Care Chief Physical Therapist Name Role Phone Michael Orona MD Primary Care Provider UnavailHe Lujan Unavailable [phone] Allergies Allergen (clinical drug ingredient) Drug/Non Drug [...] Problem Status W/U Status Risk Notes Problem Primary osteoarthritis , right ankle and foot (M19.071) Active confirmed Plan Of Treatment Pending Test Test Name Order Date X ray : Foot, right 3V 05/29/2022, J0702- INJECT or DRAIN, JOINT/BUR SA 05/25/2023, E0096-EBHBW/INJECT, JOINT/BURSA 0 05/25/2023, [id number]/INJECT, JOINT/BURSA 0 10/27/2022 X ray : Ankle, right 3V 07/23/2023 Insurance Providers Payer Name Payer Address Payer Phone Subscriber Number Group Number Insured Name Patient Relationship to Insured Coverage Start Date Coverage End Date [facility] [employer] Claims [address] [place] [address] [phone] [id number] Lillie Phillips Self - patient is the insured Medical (General) History Medical History History ICD Code Arthritis covid-19 Depression Fibromyalgia Headaches/Migraines High blood pressure Numbness Joint implants/screws Bone implants/screws Surgical History Surgery Date(Month/Year) knee replacement 12/20/20 shoulder replacement 07/22/21 elbow sx 11/17/21
--- OUTSIDE RECORDS SUMMARY | 2024-09-06 13:20 | XMS_ITS | Clinical Summary ---
Author Organization [facility] Address [address] [place] [address] Care Team Providers Care Soil Scientist Name Role Phone Michael Orona Primary Care Provider [phone] Allergies No known active allergies Medications aspirin [...] age to complete this topic Insurance MEDICARE [facility] [place] Care Teams Soil Scientist Relationship Specialty Start Date End Date Michael Orona [address] [place] [address] PCP - General Internal Medicine 05/17/20
--- OUTSIDE RECORDS SUMMARY | 2024-09-06 13:20 | XMS_ITS ---
Author Organization [facility] Address [address] [place] [address] Care Team Providers Care Black Off Worker Name Role Phone Michael Orona MD Primary Care Provider Unavailab He Bee [phone] REASON FOR VISIT cx 08/24/2023 Encounters Encounter Location Date Provider Diagnosis [facility] [address] [place] [address] 08/23/2023 He Jade Plan Of Treatment No Information Progress Notes * Jeremi BLANCADiazB:[birth year] (73 yo F)Acc No.[id number]:08/23/2023 Patient:?Lillie Blanca :1950???Age:73 Y???Sex:Female Address:[address] [place] [address], [address] * true * Date:? Generated for Printi ng/Hien/eTransmitting on:?09/06/2024 01:19 PM EDT
--- OUTSIDE RECORDS SUMMARY | 2024-09-06 13:20 | XMS_ITS ---
Author Organization [facility] Address [address] [place] [address] Care Team Providers Care Meat Cooler Name Role Phone Michael Orona MD Primary Care Provider UnavailHe Lujan Unavailable [phone] Allergies Allergen (clinical drug ingredient) Drug/Non Drug [...] 07/23/2023 Encounters Encounter Location Date Provider Diagnosis [facility] [place] [address] [place] [address] 07/23/2023 HeNolasco Pain in right foot M79.671 [...] * Maximo BLANCAB:[birth year] 53 (72 yo F)Acc No.[id number]:07/23/2023 Progress Note Patient:?Lennie Blancalia Provider:?He Jade DPM :1950???Age:72 Y???Sex:Female D ate:07/23/2023 Address:[address] [place] [id number] Pcp:Michael Orona MD Subjective: * Chief Complaints: [...] - M72.2? Plan: * Treatment: * Procedure Codes:?24943 X-RAY EXAM OF RIGHT ANKLE 3V, Modifiers: 26 , [id number] AFO ANK GAUNTLT PREFAB W FIT ADJ, [...] Jade DPM Date:? 024 Generated for Amando awad/Hien/Arianna on:?09/06/2024 01:19 PM EDT History and Physical Notes * [...]
--- OUTSIDE RECORDS SUMMARY | 2024-09-06 13:20 | XMS_ITS | Encounter Summary ---
Author Organization [facility] Address [address] [place] [address] Phone Care Team Providers Care Sample Finisher Name Role Phone Michael Orona MD Primary Care Provider [phone] Encounter Details Date Type Department Care Team (Late st Contact Info) Description 05/26/2022 Telephone [facility] [address] [place] [address] Marshall Holder MD Social History [...] refill for hydralazine tiny, Please send to [facility] she is out of alexander meds thank you documented in this encounter Plan of Treatment Not on file documented as of this encounter Visit Diagnoses Not on filedocumented in this encounter Care Teams Sample Finisher Relationship Specialty Start Date End Date Michael Orona MD [facility] [address] [place], [place] PCP - General Internal Medicine 03/19/21 documented as of this encounter
--- OUTSIDE RECORDS SUMMARY | 2024-09-06 13:20 | XMS_ITS | Data Portability ---
Author Organization [facility], PAIN OFFICE Address [address] [facility] [address] [place] [address] Care Team Providers Care Milled Lumber Grader Name Role Phone JAVIER TRACEY Primary Care Provider [phone] Assessment Encounter Date Assessment Date Assessment LastModified [...] appointment has been booked. She needs a trash collector truck driver on the day of the [...] appointment has been booked. She needs a trash collector truck driver on the day of the procedure. [email or web address] Not available 03/23/2022 14:21:57 Plan of Treatment Reminders Order Date Submit Date Provider Last Modified By Organization Details Last Modified Time Details Appointments None recorded. Lab None recorded. Referral None recorded. Procedures None recorded. Surgeries None recorded. Imaging None recorded. Medication Orders gabapentin 300 mg capsule 2019 020 [facility] [employer] [id number], [address] [place], [place], [id number], 13:00:17 Patient TargetsNo targets recorded. Patient Instructions Encounter Date Encounter Id Patient Instructions Last Modified By Organization Details Last Modified Time 05/24/2019 [id number] She was advised to continue with activities as tolerated. [email or web address] Not available 05/29/2019 12:01:06 05/30/2019 [id number] She was advised to continue with activities as tolerated. [email or web address] Not available 05/30/2019 11:29:57 06/29/2019 [id number] She was advised to continue with activities as tolerated. [email or web address] Not available 07/04/2019 08:30:21 10/04/2020 [id number] She was advised to continue with activities as tolerated. [email or web address] Not available 10/04/2020 13:52:51 03/23/2022 [id number] She was advised to continue with activities as tolerated. [email or web address] Not available 03/23/2022 14:20:35 Reason for Referral None Reported. Problems Name Problem SNOMED Code Status Onset Date Resolution Date Notes Provider Name and Address Organization Details Recorded Time Lumbosacral spondylosis without myelopathy 64986795 Active 2016 Dillan george MD [address] , [address], [facility] [place], [address], [place] [facility] 7 10:14:12 Lumbar post-laminecto my syndrome 630281938 Active 2016 Dillan george MD [address] , [address], [facility] [place], [address], [place] [facility] 7 10:14:14 Displacement of lumbar intervertebral disc without myelopathy 70591277 Active 2016 Dillan george MD [address] , [address], [facility] [place], [address], [place] [facility] 7 10:14:15 Spinal stenosis of lumbar region 12264901 Active 2016 Dillan george MD [address] , [address], [facility] [place] [place], [address], [place] [facility] 7 10:14:17 Problem Notes None recorded. Procedures Surgical History Date Name Laterality Status Provider Name and Address Organization Details Recorded Time 05/30/19 20 Lumbar Epidural steroid injection under fluoroscopic guidance completed Dillan West MD [address] , [address], [place], [address], [place] [facility] 05/30/2019 11:31:42 02/23/20 18 Fluoroscopic Guided Lumbar Facet Steroid Injections of levels completed Dillan West MD [address] , [address], [place], [address], [place] [facility] 02/24/2018 08:53:58 08/02/19 18 Other completed Joyce Whaley [place] [facility] 12/08/2018 14:20:26 01/28/20 17 Fluoroscopic Guided Lumbar Facet Steroid Injections of levels completed Dillan West MD [address] , [address], [place], [address], [place] [facility] 01/27/2017 [...] knee replacement completed Dillan West MD [address] [facility] , [address], [place], [address], [place] [facility] 10/04/2020 10:37:18 total shoulder replacement completed Dillan West MD [address] [facility] , [address], [place], [address], [place] [facility] 03/23/2022 14:48:43 Imaging Results None recorded. Procedure Notes None recorded. Medical Equipment None Reported. Allergies No known drug allergies Medications Name Sig Start Date Stop Date Status Note LastModified by Organization Details LastModified Time vitamin d3 1.25 mg (58829 u active Not Available Not Available Not [...] Updated DateTime 0 160.02 cm 33.3 kg/m2 48470.3 7 g 78 /min 100 % 100 [...] /min 98 % 98 % 35.4 kg/m2 76768.4 7 g 138 mm[Hg] 69 mm[Hg] Flavia [...] Updated DateTime 03/23/2022 160.02 cm 35.4 kg/m2 15014.47 g 80 /min Dillan West MD [address] [place] [address] , [address], [place], [address], [place] [facility] 03/23/2022 14:20:14 Social History Question Answer Notes LastModified by Organizat ion Details LastModified Time Tobacco Smoking Status Former Smoker Quit x 30 years Not Available [employer] 02/16/2020 03:16:11 What Is Your Level Of Alcohol Consumption? 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 02/24/2018 [id number] Information not available 02/16/2020 How Many Years Have You Smoked Tobacco? 2 [id number] Information not available 02/16/2020 Sex: Unknown Functional Status None recorded. Mental Status None recorded. Family History Relationship Description Onset Age of this Age Resolved Age Notes LastModified by Organization Details LastModified Time Father No current problems or disability [email or web address] Not available 01/08 09:22:50 Mother No current problems or disability [email or web address] Not available 01/08 09:22:50 Medical History Condition Response Arthritis Y Irritable Bowel Syndrome Y Hyperthyroidism Y Gynecological HistoryNo gynecological history recorded. Obstetrics History GPAL:G 0 P 0 0 0 0 Past Encounters Encounter ID Performer Location Encounter Start Date Encounter Closed Date Diagnosis/Indication Diagnosis SNOMED-CT Code Diagnosis ICD10 Code Diagnosis Note [id number] Dillan West MD PAIN OFFICE [address] [place] [address] 01/08/2017 08:42:52 01/11/2017 10:21:59 Lumbosacral spondylosis without myelopathy 84651828 M47.817 Lumbar post-laminectomy syndrome 013987688 M96.1 Displaceme nt of lumbar intervertebral disc without myelopathy 92492031 M51.26 Spinal dee nosis of lumbar region 50814716 M48.06 [id number] Dillan West MD PAIN OFFICE [address] [place] [address] 01/27/2017 10:18:45 01/28/2017 09:27:51 Lumbosacral spondylosis without myelopathy 85441763 M47.817 Lumbar post-laminectomy syndrome 694274335 M96.1 Displaceme nt of lumbar intervertebral disc without myelopathy 44704535 M51.26 Spinal dee nosis of lumbar region 66970792 M48.06 [id number] Dillan West MD PAIN OFFICE [address] [place] [address] 02/23/2017 10:08:21 02/23/2017 11:11:16 Lumbosacral spondylosis without myelopathy 92114834 M47.817 Lumbar post-laminectomy syndrome 712039135 M96.1 Displaceme nt of lumbar intervertebral disc without myelopathy 39400270 M51.26 Spinal dee nosis of lumbar region 23902031 M48.062 [id number] Dillan West MD PAIN OFFICE [address] [place] [address] 06/08/2017 08:49:05 06/08/2017 09:14:04 Lumbosacral spondylosis without myelopathy 05574423 M47.817 Lumbar post-laminectomy syndrome 658437932 M96.1 Displaceme nt of lumbar intervertebral disc without myelopathy 55251838 M51.26 Spinal dee nosis of lumbar region 56719147 M48.062 [id number] Dillan West MD PAIN OFFICE [address] [place] [address] 02/22/2018 14:41:05 02/24/2018 09:42:46 Lumbosacral spondylosis without myelopathy 05802739 M47.817 Lumbar post-laminectomy syndrome 318224049 M96.1 Displaceme nt of lumbar intervertebral disc without myelopathy 74958690 M51.26 Spinal dee nosis of lumbar region 44829464 M48.061 [id number] Dillan West MD PAIN OFFICE [address] [place] [address] 12/08/2018 13:34:57 12/08/2018 14:55:16 Lumbosacral spondylosis without myelopathy 41335099 M47.817 Lumbar post-laminectomy syndrome 289533109 M96.1 Displaceme nt of lumbar intervertebral disc without myelopathy 15641110 M51.26 Spinal dee nosis of lumbar region 34538081 M48.061 [id number] Dillan West MD PAIN OFFICE [address] [place] [address] 05/24/2019 13:52:43 05/29/2019 12:04:20 Displacement of lumbar intervertebral disc without myelopathy 62936032 M51.26 Lumbar post-laminectomy syndrome 631028834 M96.1 Lumbosacra l spondylosis without myelopathy 96112123 M47.817 Spinal dee nosis of lumbar region 54131835 M48.061 [id number] Dillan West MD [facility] PAIN [facility]ICE [address] [place] [address] 05/30/2019 10:04:00 05/30/2019 12:02:41 Displacement of lumbar intervertebral disc without myelopathy 47026469 M51.26 Lumbar post-laminectomy syndrome 103385626 M96.1 Lumbosacra l spondylosis without myelopathy 11652590 M47.817 Spinal dee nosis of lumbar region 21089847 M48.061 [id number] Dillan West MD PAIN OFFICE [address] [place] [address] 06/29/2019 08:53:20 07/04/2019 08:34:02 Displacement of lumbar intervertebral disc without myelopathy 61961339 M51.26 Lumbar post-laminectomy syndrome 146568978 M96.1 Lumbosacra l spondylosis without myelopathy 58460713 M47.817 Spinal dee nosis of lumbar region 43124069 M48.061 [id number] Dillan West MD PAIN OFFICE [address] [place] [address] 10/04/2020 10:36:19 10/04/2020 13:53:57 Displacement of lumbar intervertebral disc without myelopathy 03035829 M51.26 Lumbar post-laminectomy syndrome 038505906 M96.1 Lumbosacra l spondylosis without myelopathy 04204247 M47.817 Spinal dee nosis of lumbar region 33255757 M48.061 [id number] Dillan West MD [facility] PAIN [facility] [address] [place] [address] 03/23/2022 12:52:26 03/23/2022 14:49:20 Displacement of lumbar intervertebral disc without myelopathy 05837608 M51.26 Lumbar post-laminectomy syndrome 768117111 M96.1 Lumbosacra l radiculopathy 0777357 M54.17 Health Concerns Section Related Observation LastModified by Organization Detai ls LastModified Time None Recorded Concern Status LastModified by Organization Details LastModified Time None Recorded Advance Directives Directive None Recorded Payers Encounter Date Sequence Insurance Name Policy Number Policy Sheppard Covered Member ID Sheppard Member ID Guarantor Name 05/24/2019 2 [place] Lillie Jacqueline [id number] Lillie Jacqueline 05/24/2019 2 [place] [employer] Lillie Jacqueline [id number] Lillie Jacqueline 05/30/2019 2 [place] Lillie Jacqueline [id number] Lillie Jacqueline 05/30/2019 2 [place] Lillie Jacqueline [id number] Lillie Jacqueline 06/29/2019 2 [place] Lillie Jacqueline [id number] Lillie Jacqueline 06/29/2019 2 [place] [employer] Lillie Jacqueline [id number] Lillie Jacqueline 10/04/2020 2 [place] Lillie Jacqueline [id number] Lillie Jacqueline 10/04/2020 2 [place] [employer] [place] Lillie Jacqueline [id number] Lillie Jacqueline 03/23/2022 1 [facility] - DOS PRIOR TO 2022 - DUAL ELIGIBLE (MEDICARE REPLACEMENT/AD VANTAGE - HMO) Lillie Jacqueline [id number] Lillie Jacqueline Notes Date Note Type Note [...] stenosis at L2-3. Thenu Manikantan, MD [address] [facility] , [address], [place], [address], [place] [facility] 05/30/2019 11:28:58 05/30/2019 text/html She is here for a trial of lumbar epidural steroid injection under fluoroscopic guidance. Dillan West MD [address] [facility] , [address], [place], [address], [place] [facility] 05/31/2019 08:50:23 06/29/2019 text/html She is here for a follow up after a trial of lumbar epidural steroid injection under fluoroscopic guidance. She reports 80% pain benefit which is ongoing. 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 She has no history of bladder or bowel incontinence. She is seeing Dr. Velasco for a consult. Dillan West MD [address] [facility] , [address], [place], [address], [place] - [facility] 07/05/2019 09:55:20 10/04/2020 text/html This is a follow up. She states she had a total knee replacement last year . She has been having shoulder pain and is now scheduled to have a right shoulder replacement with Dr. Azalea Paige . She states her low back pain is currently manageable. Dillan West MD [address] [facility] , [address], [place], [address], [place] [facility] 10/04/2020 14:26:08 [...] was so severe she had gone to [facility] and was started on prednisone and oxycodone. [...] her ovarian region. Dillan West MD [address] [facility] , [address], [place], [address], [facility] - Pain Management 03/23/2022 16:20:37 OBGyn Episode No OBEpisode recorded.
--- OUTSIDE RECORDS SUMMARY | 2024-09-06 13:20 | XMS_ITS | Clinical Summary ---
Author Organization [facility] ity Address [address] [place] [address] Care Team Providers Care Batch Roller Operator Name Role Phone Unavailable Primary Care Provider Unavailabl e Encounters Date Type Department Care Team Description 08/16/2024 Telephone [facility] [address] [place] [address] Noel Tucker MD Scheduling from [...]
--- OUTSIDE RECORDS SUMMARY | 2024-09-06 13:20 | XMS_ITS ---
[facility] Address [address] [place] [address] Care Team Providers Care Radiation Oncology Therapist Name Role Phone Michael Orona MD Primary Care Provider Unavailab He Bee Unavailable [phone] REASON FOR VISIT PCP 07/09/23 Medications Medication SIG (Take, Route, Frequency, Duration) Notes Start Date End Date Status ASO Ankle/Foot Stablizing AFO As directed Wear Daily for as needed Active Encounters Encounter Location Date Provider Diagnosis [facility] [address] [address] 08/24/2023 He Jade Pain in right foot [...] * Maximo BLANCAB:[birth year] (74 yo F)Acc No.[id number]:08/24/2023 Progress Note Patient:?Lillie BLANCA Provider:?He Jade DPM :1950???Age:73 Y???Sex:Female D ate:08/24/2023 Address:[address] [place], [place] [id number] Pcp:Michael Orona MD Subjective: * Chief Complaints: [...] - M72.2??? Plan: * Treatment: * Procedure Codes:?61896 X-RAY EXAM OF RIGHT ANKLE 3V, Modifiers: [...] DPM Date:? 024 Generated for Amando awad/Hien/eTransmitting on:?09/06/2024 01:19 PM EDT History and Physical [...]
== END 2024-09-06 12:24 | disposition home or self-care (01) ==
LOC: HO.HKAS 12:03
PROVIDERS: Visit Provider Internal Medicine Hypertension Specialist
DX: I10 Essential (primary) hypertension (principal)
CPT/HCPCS: 99214

== ENCOUNTER → 2024-09-06 12:02 | Outpatient (BNVA) | payer OTHER, SELFPAY | PROVIDERS: Visit Provider Internal Medicine Hypertension Specialist | DX: I10 Essential (primary) hypertension (principal) | CPT/HCPCS: 99212 ==

== ENCOUNTER 2024-12-13 09:11 | Outpatient (AMB) | payer OTHER, SELFPAY ==
--- OUTSIDE RECORDS SUMMARY | 2023-08-24 10:45 | XMS_ITS ---
Author Organization [facility] Address [address] [place] [address] Care Team Providers Care Substation Wireman Name Role Phone Michael Orona MD Primary Care Provider Unavailab He Bee Unavailable [phone] REASON FOR VISIT PCP 07/09/23 Medications Medication SIG (Take, Route, Frequency, Duration) Notes Start Date End Date Status ASO Ankle/Foot Stablizing AFO As directed Wear Daily; Duration: as needed Active Encounters Encounter Location Date Provider Diagnosis [facility] [address] [address] 08/24/2023 He Jade Pain in right foot [...] * Maximo BLANCAB:[birth year] (74 yo F)Acc No.[id number]:08/24/2023 Progress Note Patient: Lillie ANN Provider: Maria C Jade DPM :1950 A ge:73 Y S ex:Female Date:08/24/2023 Address:[address] [place], [place] [id number] Pcp:Michael Orona MD Subjective: * Chief Complaints: [...] dmits. C ardiovascular: Pacemaker d enies. M RUBY SOFTWARE DEVELOPER d enies. W PW d enies. C [...] 08/24/2023 Generated for Amando awad/Hien/Arianna on: 0 12/13/2024 09:34 AM EDT History and Physical Notes * [...]
[2024-12-13 09:18] VITALS: BP 144/76; PULSE 85; O2SAT 95; BMI 38.8
--- NOTE | 2024-12-13 09:18 | HO.NEPHOV_ITS ---
Vital Signs 12/13/24 09:18 Height 5 ft 3 in Weight 219 lb BMI 38.8 BP 144/76 H Blood Pressure Location Lt brachial Position Sitting Pulse 85 Pulse Source Pulse Oximeter Pulse Oximetry (%) 95 Oxygen Delivery Method Room Air Intake Visit Reasons: 3mon zosugm-ad-Rhio Utilization Review Nurse Required: No Accompanied by: Self / Same As Patient Allergies No Known Allergies Allergy (Verified 12/13/24 09:21) Medication List - Last Reconciled 12/13/24 by Marshall Holder MD albuterol sulfate 90 mcg/actuation inhalation PRN amlodipine 10 mg PO DAILY duloxetine 60 mg PO DAILY fluticasone propionate 50 mcg/actuation 1 spray intranasal BID PRN hydralazine 50 mg PO TID losartan 50 mg PO DAILY magnesium 250 mg PO DAILY PRN miscellaneous medical supply (Blood Pressure Cuff) As directed omeprazole 20 mg PO DAILY PRN simvastatin 10 mg PO BEDTIME valacyclovir 500 mg PO BID PRN vitamin B complex 1 cap PO DAILY HPI Comments Details: [age] old woman with a history of longstanding hypertension cholelithiasis with transaminitis fatty liver and chronic back pain with obesity he is here for follow-up regarding hypertension. She has been on verapamil 180 mg twice a day and telmisartan 80 mg a day. Today she has no specific complaints. Back in July of 2021 she developed cough with Lotrel. Lotrel was switched to valsartan with amlodipine combination which she has been able to tolerate. She has lost about 14 lbs 03/22/2024 ;Overall doing well no new issues. She has occasional leg edema mostly in the evenings no shortness of breath. 06/28/24: Events noted; Recently had a spike in BP . No change in medications 09/06/24: BP has been stable. No new issues. No dyspnea at rest 12/13/24 Underwent Valve replacement on Sep 28 2024 Since then, she has dizziness Seen by ENT [facility] Social History Alcohol intake: never Patient Tobacco Use Status: Never used Tobacco Physical Exam Vital Signs: Last Vital Signs Pulse 85 12/13/24 09:18 BP 144/76 H 12/13/24 09:18 Pulse Ox 95 12/13/24 09:18 Oxygen Delivery Method Room Air 12/13/24 09:18 BMI result Body Mass Index 38.8 Const General: comfortable; No acute distress Orientation/consciousness: patient oriented x3 Eyes General: appearance normal, both eyes and all related structures Visual Rivers: normal visual rivers by confrontation Neck Neck: Yes supple and Yes no JVD Resp Effort & Inspection: normal respiratory effort and respiratory effort not decreased Cardio Palpation: no palpable S3 and no palpable S4 Heart sounds: S1 normal heart sound present, S2 normal heart sound present, Murmur heart sound present (Ejection systolic) and no rubs GI Inspection: Yes normal to inspection Palpation (GI): Soft to palpation Percussion: Yes normal to percussion Auscultation: normal bowel sounds General: Yes no CVA tenderness Back/Spine/Pelvis Back: no CVA tenderness Skin General skin exam: no petechiae and no purpura Neuro General: patient oriented x3 and no focal motor deficits Extrem General: No clubbing and No edema Results Reviewed Nephrology Results: Sodium, (135-145) 136 mmol/L 08/30/24 Potassium, (3.3-5.1) 3.8 mmol/L 08/30/24 Chloride, (96-108) 103 mmol/L 08/30/24 Carbon Dioxide, (22-29) 22 mmol/L 08/30/24 BUN, (9-16) 26 mg/dL H 08/30/24 Creatinine, (0.5-1.4) 0.76 mg/dL 08/30/24 Calcium, (8.4-10.2) 9.8 mg/dL 08/30/24 Assessment & Plan Assessment & Plan (1) HTN (hypertension): Code(s): I10 - Essential (primary) hypertension Category: Medical Plan 74-year-old woman with history of resistant hypertension. Left renal artery stenosis based on CTA Currently blood pressure is better controlled Renal function is stable. Will continue to manage medically If BP is difficult to control or if renal function deteriorates, would consider renal angiogram Stay on low-salt diet. She will benefit from weight loss as well. Continue with current medications No changes were made 12/13/24 Overall BP is well controlled Unsure what is causing the dizziness. Will obtain 24 hr ABPM to r/o hypotensive episodes Orders: Orders Complete Blood Count no Diff Today I10 - Essential (primary) hypertension Comprehensive Met. Panel Today I10 - Essential (primary) hypertension AMB 24 HR B/P Monitor PLACEMENT Today I10 - Essential (primary) hypertension Coding Level of Care Code Est Pt Level 4 (96381) Diagnoses HTN (hypertension) I10
--- OUTSIDE RECORDS SUMMARY | 2024-12-13 09:34 | XMS_ITS | Clinical Summary ---
Author Organization [facility] ity Address [address] [place] [address] Care Team Providers Care Telegraph Installer Name Role Phone Unavailable Primary Care Provider [...] 2) 08/21/2001 Colorectal Cancer Screening: Colonoscopy 04/05/2022 Falls Risk Assessment 04/05/2022 Hepatitis C Screening 04/05/2022 Osteoporosis Screening (Bone Density Screening) 04/05/2022 Social Influencers of Health Screening 04/05/2022 COVID-19 Vaccine ( - 2023-2 5 season) 2024 Depression Screening 05/03/2024 Influenza Vaccine (#1) 2025 RSV Immunization Adult Patie nts (1 [...]
--- OUTSIDE RECORDS SUMMARY | 2024-12-13 09:34 | XMS_ITS | Encounter Summary ---
Author Organization [facility] Address [address] [place] [address] Phone Care Team Providers Care Director Of Events Name Role Phone Michael Orona MD Primary Care Provider [phone] Encounter Details Date Type Department Care Team (Late st Contact Info) Description 05/26/2022 Telephone [facility] [address] [place] [address] Marshall Holder MD Social History [...] refill for hydralazine tiny, Please send to [facility] pharmacy she is out of alexander meds thank you documented in this encounter Plan of Treatment Not on file documented as of this encounter Visit Diagnoses Not on filedocumented in this encounter Care Teams Director Of Events Relationship Specialty Start Date End Date Michael Orona MD [facility] [address] [place], [place] PCP - General Internal Medicine 03/19/21 documented as of this encounter
--- OUTSIDE RECORDS SUMMARY | 2024-12-13 09:34 | XMS_ITS | Referral Summary ---
Author Organization [facility] Address [address] [place] [address] Care Team Providers Care Paying Teller Name Role Phone Michael Orona Primary Care Provider [phone] Allergies No known active allergies Medications aspirin [...] of Treatment Not on file Insurance MEDICARE [facility] Care Teams Paying Teller Relationship Specialty Start Date End Date Adwoa Michael [facility] [place] [address] PCP - General Internal Medicine 05/17/20
--- OUTSIDE RECORDS SUMMARY | 2024-12-13 09:35 | XMS_ITS | Clinical Summary ---
Author Organization [facility] Address [address] [place] [address] Phone Care Team Providers Care Aircraft Pneudraulic Systems Mechanic Name Role Phone Michael Orona MD Primary Care Provider [phone] Active Problems Problem Noted Date Diagnosed Date Aortic stenosis 10/20/2022 10/20/2022 Obesity 09/01/2022 09/01/2022 Fibromyalgia 09/01/2022 Primary hypertension 09/01/2022 History of total left knee replacement Chronic knee pain after tota l replacement of left knee joint 09/01/2022 Stiffness of left knee 09/01/2022 Gastroesophageal reflux disease 07/09/2021 10/20/2022 Varicose veins of lower extremity 07/09/2021 10/20/2022 Displacement of lumbar inter vertebral disc without myelopathy 01/11/2017 10/20/2022 Lumbar post-laminectomy syndrome 01/11/2017 10/20/2022 Spinal stenosis of lumbar region 01/11/2017 10/20/2022 Social History Tobacco Use Types Packs/Day Years Used Date Smoking Tobacco: Never Assessed Education Answer Date Recorded Are you interested in more education? Not on rich e 08/27/2022 Are you concerned about learning? Not on file 08/27/2022 No 08/27/2022 No 08/27/2022 Digital Access Answer Date Recorded No 09/23/2022 No 09/23/2022 No 09/23/2022 Reliable internet access at home? Not on file 09/23/2022 Device with a working camera? Not on file Comments Unknown Sex and Gender Information Value Date Recorded Sex Assigned at Not on file Legal Sex Female 2:49 PM EDT Gender Identity Not on file Sexual Orientation Not on file Last Filed Vital Signs Vital Sign Reading Time Taken Comments Blood Pressure - - Pulse - - Temperature - - Respiratory Rate - - Oxygen Saturation - - Inhaled Oxygen Concentration - - Weight 94.8 kg (209 lb) 09/01/2022 12:38 PM EDT Height 160 cm (5' 3 ) 09/01/2022 12:38 PM EDT Body Mass Index 37.02 09/01/2022 12:38 PM EDT Plan of Treatment Health Maintenance Due Date Last Done Comments BLOOD PRESSURE 1950 LIPID PANEL 1950 DEPRESSION SCREENING 1963 SMOKING Hx and SMOKELESS TOBACCO SCREENING 08/21/1964 HEPATITIS C SCREENING 08/21/1969 MAMMOGRAM 1991 COLOGUARD 08/21/1996 COLONOSCOPY 08/21/1996 COLORECTAL CANCER SCREENING 08/21/1996 FIT TEST 08/21/1996 FOBT 08/21/1996 SIGMOIDOSCOPY 08/21/1996 VIRTUAL COLONOSCOPY 08/21/1996 OSTEOPOROSIS SCREENING INITIAL (ONE-TIME) 08/21/2016 Adult Td,Tdap Booster 12/01/2017 12/02/2007 COVID-19 VACCINE ( season) 2024 04/03/2022, 03/05/2021, 08/04/2020, Additional history exists RSV VACCINE (1 - 1-dose 75+ series) 08/21/2026 PNEUMOCOCCAL VACCINES (50+ years) Completed 06/07/2019, 12/07/2016 ZOSTER VACCINES Completed 12/23/2020, 10/02, 12/04/2014 HEPATITIS A VACCINES Aged Out No long er eligible based on patient's age to complete this topic HIB VACCINES Aged Out No longer eligi ble based on patient's age to complete this topic MENINGOCOCCAL VACCINES (ACWY) Aged Out No longer eligible based on patient's age to complete this topic MENINGOCOCCAL VACCINES (B) Aged Out N o longer eligible based on patient's age to complete this topic Medical Devices Not on file Insurance [facility] MEDICARE REPLACEMENT [place] [address] MEDICARE PART A & B [facility] MEDICARE REPLACEMENT MEDICARE PART A & B Member Subscriber Plan / Payer (Ef fective 2016-Present) Name:Lillie Phillips Member ID:[id number] Relation to Subscriber:Self Name:Lillie Phillips Subscriber ID:[id number] Payer ID:[id number] Group ID:Not on file Type:Medicare Address: [place] [facility] [address] [place] [address] ALBERTO NUNEZ [facility] MEDICARE PART A & B Member Subscriber Plan / Payer (Ef fective 2016-Present) Name:Lillie Phillips Member ID:[id number] Relation to Subscriber:Self Name:Lillie Phillips Subscriber ID:[id number] Payer ID:[id number] Group ID:Not on file Type:Medicare Address: [place] [employer] [address] [place] [address] [place] [address] MEDICARE REPLACEMENT MEDICARE PART A & [place] [address] MEDICARE REPLACEMENT MEDICARE PART A & B Member Subscriber Plan / Payer (Ef fective 2016-Present) Name:Lillie Phillips Member ID:[id number] Relation to Subscriber:Self Name:Lillie Phillips Subscriber ID:[id number] Payer ID:[id number] Group ID:Not on file Type:Medicare Address: [place] [facility] [address] [place] [address] [facility] MEDICARE REPLACEMENT MEDICARE PART A & B Member Subscriber Plan / Payer (Ef fective 2016-Present) Name:Lillie Phillips Member ID:[id number] Relation to Subscriber:Self Name:Lillie Phillips Subscriber ID:[id number] Payer ID:[id number] Group ID:Not on file Type:Medicare Address: [place] [facility] [address] [place] [address] [facility] MEDICARE REPLACEMENT [place] [address] MEDICARE PART A & B Member Subscriber Plan / Payer (Ef fective 2016-Present) Name:Lillie Phillips Member ID:[id number] Relation to Subscriber:Self Name:Lillie Phillips Subscriber ID:[id number] Payer ID:[id number] Group ID:Not on file Type:Medicare Address: [place] [facility] [address] [place], [place] [id number] [place] [address] MEDICARE REPLACEMENT MEDICARE PART A & [place] [address] MEDICARE REPLACEMENT MEDICARE PART A & B Care Teams Aircraft Pneudraulic Systems Mechanic Relationship Specialty Start Date End Date Michael Orona MD [address] [facility] [address] [place] [address] PCP - General Internal Medicine 07/16/21 Additional Source Comments The information contained in this document represents components of the legal health record. It is not the complete legal health record.[facility]
== END 2024-12-13 09:34 | disposition home or self-care (01) ==
LOC: HO.HKAS 09:11
PROVIDERS: Visit Provider Internal Medicine Hypertension Specialist
DX: I10 Essential (primary) hypertension (principal)
CPT/HCPCS: 99214

== ENCOUNTER → 2024-12-13 09:11 | Outpatient (BNVA) | payer OTHER, SELFPAY | PROVIDERS: Visit Provider Internal Medicine Hypertension Specialist | DX: I10 Essential (primary) hypertension (principal) | CPT/HCPCS: 99212 ==

== ENCOUNTER 2024-12-14 09:59 | Outpatient (REF) | payer OTHER, SELFPAY ==
--- OUTSIDE RECORDS SUMMARY | 2023-08-24 10:45 | XMS_ITS ---
Author [facility] Address [address] [place] [address] Care Team Providers Care Utilization Management Um Nurse Name Role Phone Michael Orona MD Primary Care Provider Unavailab He Bee Unavailable [phone] REASON FOR VISIT PCP 07/09/23 Medications Medication SIG (Take, Route, Frequency, Duration) Notes Start Date End Date Status ASO Ankle/Foot Stablizing AFO As directed Wear Daily; Duration: as needed Active Encounters Encounter Location Date [facility] [address] [address] 08/24/2023 He Jade Pain in right foot [...] * Maximo BLANCAB:[birth year] (74 yo F)Acc No.[id number]:08/24/2023 Progress Note Patient: Lillie ANN Provider: Maria C Jade DPM :1950 A ge:73 Y S ex:Female Date:08/24/2023 Address:[address] [place], [place] [id number] Pcp:Michael Orona MD Subjective: * Chief Complaints: [...] dmits. C ardiovascular: Pacemaker d enies. M EXTERN d enies. W PW d enies. C [...] DPM Date: 0 08/24/2023 Generated for Amando awad/Hien/Arianna on: 0 12/14/2024 10:39 AM EDT History and Physical Notes * [...]
--- OUTSIDE RECORDS SUMMARY | 2024-12-14 10:40 | XMS_ITS | Encounter Summary ---
Author Organization [facility] Address [address] [place] [address] Phone Care Team Providers Care After School Driver Name Role Phone Michael Orona MD Primary Care Provider [phone] Encounter Details Date Type Department Care Team (Late st Contact Info) Description 05/26/2022 Telephone [facility] [address] [place] [address] Marshall Holder MD Social History [...] refill for hydralazine tiny, Please send to [facility] pharmacy she is out of alexander meds thank you documented in this encounter Plan of Treatment Not on file documented as of this encounter Visit Diagnoses Not on filedocumented in this encounter Care Teams After School Driver Relationship Specialty Start Date End Date Michael Orona MD [facility] [address] [place], [place] PCP - General Internal Medicine 03/19/21 documented as of this encounter
--- OUTSIDE RECORDS SUMMARY | 2024-12-14 10:40 | XMS_ITS | Clinical Summary ---
Author Organization [facility] Address [address] [place] [address] Phone Care Team Providers Care Physiological Chemist Name Role Phone Michael Orona MD Primary Care Provider [phone] Active Problems Problem Noted Date Diagnosed Date [...] topic Medical Devices Not on file Insurance [facility] MEDICARE REPLACEMENT [place] [id number] MEDICARE PART A & B [facility] MEDICARE REPLACEMENT MEDICARE PART A & B ALBERTO NUNEZ [facility] MEDICARE PART A & [place] [address] [place] [address] MEDICARE REPLACEMENT MEDICARE PART A & [place] [place] [address] MEDICARE REPLACEMENT MEDICARE PART A & B [facility] MEDICARE REPLACEMENT MEDICARE PART A & B [facility] MEDICARE REPLACEMENT [place] [address] MEDICARE PART A & [place] [address] [place] [address] MEDICARE REPLACEMENT MEDICARE PART A & [place] [address] [place] [address] MEDICARE REPLACEMENT MEDICARE PART A & B Care Teams Physiological Chemist Relationship Specialty Start Date End Date Michael Orona MD [address] [facility] [address] [place] [address] PCP - General Internal Medicine 07/16/21 Additional Source Comments The information contained in this document represents components of the legal health record. It is not the complete legal health record.[facility]
--- OUTSIDE RECORDS SUMMARY | 2024-12-14 10:40 | XMS_ITS | Clinical Summary ---
Author Organization [facility] ity Address [address] [place] [address] Care Team Providers Care Gaming Cage Cashier Name Role Phone Unavailable Primary Care Provider [...]
--- OUTSIDE RECORDS SUMMARY | 2024-12-14 10:40 | XMS_ITS | Clinical Summary ---
Author Organization [facility] Address [address] [place] [address] Care Team Providers Care Diffuser Operator Name Role Phone Michael Ornoa Primary Care Provider [phone] Allergies No known active allergies Medications aspirin [...] Health Care Proxy Review 05/03/2024 Influenza Vaccine (#1) 2025 , 04/30/2020, 04/30/2020, Additional history exists RSV Vaccine (60+ years old and patients) (1 - 1-dose 75+ series) 08/21/2026 Pneumococcal Vaccine: 50+ Years Completed 06/07/2019, 12/07/2016 Zoster Vaccines Completed 12/23/2020, 10/02, 12/04/2014 Hepatitis B Vaccines Aged Out No long er eligible based on patient's age to complete this topic Insurance MEDICARE [facility] Care Teams Diffuser Operator Relationship Specialty Start Date End Date Michael Orona [address] [place] [address] PCP - General Internal Medicine 05/17/20
[2024-12-14 13:28] LABS: Hematocrit 36.7 % (37.0-47.0); Hemoglobin 11.5 g/dl (12.0-16.0); Mean Corpuscular HGB Conc 31.3 g/dl (31.0-35.0); Mean Corpuscular Hemoglobin 25.7 pg (27.0-33.0); Mean Corpuscular Volume 81.9 fL (80.0-98.0); NRBC Abs Auto 0.000 X10*3/uL (0.0-0.012); NRBC Pct Auto 0.0 /100WBC (0.0-0.2); Platelet Count 246 X10*3/uL (160-400); Red Blood Count 4.48 X10*6/uL (4.20-5.50); White Blood Count 5.8 X10*3/uL (4.8-10.8)
[2024-12-14 14:07] LABS: Alanine Aminotransferase 15 U/L (0-31); Albumin Level 4.0 g/dL (3.5-5.0); Alkaline Phosphatase 112 U/L (39-117); Anion Gap 12 (12-20); Aspartate Amino Transferase 29 U/L (5-31); Blood Urea Nitrogen 15 mg/dL (9-16); Calcium 9.2 mg/dL (8.4-10.2); Carbon Dioxide 24 mmol/L (22-29); Chloride 106 mmol/L (96-108); Estimated Glomerular Filt Rate > 60; Potassium 3.8 mmol/L (3.3-5.1); Sodium 138 mmol/L (135-145); Total Protein 6.7 g/dL (6.5-8.0)
== END 2024-12-14 10:00 | disposition home or self-care (01) ==
LOC: HO.HKASLDS 09:59
PROVIDERS: Visit Provider Internal Medicine Hypertension Specialist
DX: I10 Essential (primary) hypertension (principal)
CPT/HCPCS: 36415; 80053; 85027

== ENCOUNTER 2025-01-17 09:32 | Outpatient (REF) | payer OTHER, SELFPAY ==
[2025-01-17 14:05] LABS: Anion Gap 9 (12-20); Blood Urea Nitrogen 14 mg/dL (9-16); Calcium 9.6 mg/dL (8.4-10.2); Carbon Dioxide 28 mmol/L (22-29); Chloride 105 mmol/L (96-108); Estimated Glomerular Filt Rate > 60; Potassium 4.3 mmol/L (3.3-5.1); Sodium 138 mmol/L (135-145)
== END 2025-01-17 09:33 | disposition home or self-care (01) ==
LOC: HO.HKASLDS 09:32
PROVIDERS: Visit Provider Internal Medicine Hypertension Specialist
DX: I10 Essential (primary) hypertension (principal)
CPT/HCPCS: 36415; 80048

== ENCOUNTER → 2025-01-18 09:44 | Outpatient (BNVA) | payer OTHER, SELFPAY | PROVIDERS: Visit Provider Internal Medicine Hypertension Specialist | DX: Z01.30 Encounter for examination of blood pressure without abnormal findings (principal) | CPT/HCPCS: 93786; 93788 ==

== ENCOUNTER 2025-01-24 09:36 | Outpatient (AMB) | payer OTHER, SELFPAY ==
--- OUTSIDE RECORDS SUMMARY | 2023-08-24 10:45 | XMS_ITS ---
Author [facility] Address [address] [place] [address] Care Team Providers Care Medical Driver Name Role Phone Michael Orona MD Primary Care Provider Unavailab He Bee Unavailable [phone] REASON FOR VISIT PCP 07/09/23 Medications Medication SIG (Take, Route, Frequency, Duration) Notes Start Date End Date Status ASO Ankle/Foot Stablizing AFO As directed Wear Daily; Duration: as needed Active Encounters Encounter Location Date [facility] [address] [address] 08/24/2023 He Jade Pain in right foot M79.671 ; Primary osteoarthritis, right ankle and foot M19.071 ; Metatarsalgia, right foot M77.41 ; Tailor's bunion of right foot M21.621 and Plantar fascial fibromatosis M72.2 Assessments Encounter Date Diagnosis (ICD Code) Assessment Notes Treatment Notes Treatment Clinical Notes Section Notes 08/24/2023 Pain in right foot (ICD-10 - M79.671) 08/24/2023 Primary osteoarthritis, right ankle and foot (ICD-10 - M19.071) 08/24/2023 Metatarsalgia, right foot (ICD-10 - M77.41) 08/24/2023 Tailor's bunion of right foot (ICD-10 - M21.621) 08/24/2023 Plantar fascial fibromatosis (ICD-10 - M72.2) Plan Of Treatment Medication Medication Name Sig Start Date Stop Date Notes ASO Ankle/Foot Stablizing AFO As directe d Wear Daily; Duration: as needed Next Appt Details Follow Up: 4 Weeks, Reason: Progress Notes * Maximo BLANCAB:[birth year] (74 yo F)Acc No.[id number]:08/24/2023 Progress Note Patient: Lillie ANN Provider: Maria C Jade DPM :1950 A ge:73 Y S ex:Female Date:08/24/2023 Address:[address] [place], [place] [id number] Pcp:Michael Orona MD Subjective: * Chief Complaints: * 1 . PCP 07/09/23. * HPI: F oot Pain: Nature: s harp, swelling, aching. Location T op, Midfoot, Right , Bottom, Midfoot, Right .? Duration: s everal months. Onset/Cause: u nknown, denies trauma. Course: w rich in past 4 -5 weeks. Aggrevated: a ny pressure, shoes, after driving car. Treatments: c ortisone injection therapy, improved condition for 2 months. Quality/Severity 7 -8, scale 1-10. * ROS: G eneral/Constitutional: Nausea d enies. V omiting d enies. H antonio Thirst d enies. L oss appetite d enies. C hills d enies. F atigue d enies.?Fever d enies. N ight Sweats d enies. U nexplained weight loss d enies. U nexplained weight gain d enies. H EENTM: Dentures d enies. D izziness d enies. G lasses/contacts a dmits. R etinopathy d enies. B lurred/double vision d enies. T MJ?denies. D ischarge/drainage d enies. I mplants d enies. S ore throat d enies. D ental implants d enies. H cheryle of hearing d enies. D ifficulty chewing/swallowing/speaking d enies. N ose bleeds d enies. S ore mouth d enies. ? R espiratory: On Oxygen d enies. P neumonia/pleurisy d enies.?Bronchitis d enies. E mphysema d enies. C oughing d enies. C ough blood?denies. S hortness of breath d enies. W heezing a dmits. C ardiovascular: Pacemaker d enies. M BUCKLE STRAP PUNCHER d enies. W PW d enies. C HF d enies. H eart attack d enies. S eptal defect d enies. R apid beat d enies. C hest pain d enies. A trial Fib. d enies. M urmur/Palpitations d enies. G astrointestinal: Hemorrhoids d enies. S tomach/Abdominal pain d enies. D ark blood stool d enies. I rritable bowel a dmits. C onstipation d enies. D iarrhea d enies. H ematology: Swelling a dmits. C lots d enies. V aricose Veins a dmits. B ruising d enies. B leeding problem d enies. G enitourinary: Blood urine d enies. F requent/Painfu/urination/bladder control d enies. K idney stones d enies. I nfection (UTI) d enies. N ephropathy d enies. s ex trans dis (STD) d enies. P rostate d enies. M usculoskeletal: Hammertoes d enies. B unions d enies. B ack Pain a dmits. M uscle Cramps/ Resting d enies. M uscle cramps / walking d enies.?Generalized aches and pains d enies. W eakness d enies. I nteg.: Zhou d enies. S cars d enies. C orns/calluses?denies. I ngrown nails d enies. P ainful nails d enies. O pen Sores d enies. R ashes d enies. N eurologic: Difficulty sleeping a dmits. B rain disorder d enies. N umbness d enies. B alance trouble a dmits. C onfusion d enies. F ainting/blackouts d enies. T ingling a dmits. T remors a dmits. * Medical History: Objective: * Vitals: * Examination: G eneral Examination: GENERAL APPEARANCE: p leasant, alert, well nourished, well developed, well hydrated, with good attention to hygene/body habitus, and in no acute distress. ORIENTED: p erson,place, and time. N eurological: SENSORY: N eurological exam is normal, pain sensation normal, vibration sensation intact, pinprick sensation is normal in the lower extremities, denies, tingling, burning, anesthesia, paresthesia, hyperesthesia, B/L, Neurological exam demonstrates pop dorsum right 3 rd mt-cun a nd pop plantar fascia midfoot christos; most acute pop right sinus tarsi and cc. TINEL'S COMPRESSION: N egative tarsal tunnel, gregory pedis, and medial calcaneal nerves B/L. BABINSKI REFLEX: a bsent. N euroma Pain: PALPATION: N o interspace pain noted on palpation. ? V ascular: DP PULSES (B): 2 /4, B/L. PT PULSES (B): 1/4, B/L. CAPILLARY FILL TIME: 3 secs. per digit, B/L. TEMPERTURE GRADIENT (C): w arm to cool, proximal to distal, B/L. EDEMA (C): 2/4, B/L, Ankle(s), Leg(s). TELANGECTASIA: present. VARICOSITIES: present, moderate, nonpainful, B/L. ? D ermatologic: SKIN FINDINGS: S kin exam reveals normal texture, elasticity, and tugor. There are no masses. The interspaces are clear, B/L . O rthopedic: MUSCLE STRENGTH: 5 /5 all groups in a symmetrical fashion , B/L. GAIT ABNORMALITY: p ronated, abducted, B/L. ? X -Rays - IMAGING REPORT: Clinical Indication(s): Evaluate Biomechanical Deformity.? Views: 3 views of Ankle, RIGHT. Findings: m ild generalized decrease in bone density, asymmetrical Ankle joint space narrowing, medial gutter, lateral gutter. Foot structure: reveals excess pronation with, anterior break in cyme line. Assessment: * Assessment: 1. P ain in right foot - M79.671 (Primary) 2 . P rimary osteoarthritis, right ankle and foot - M19.071 3 . M etatarsalgia, right foot - M77.41 ?4. T ailor's bunion of right foot - M21.621 5 . P lantar fascial fibromatosis - M72.2 Plan: * Treatment: * Procedure Codes: 7 3610 X-RAY EXAM OF RIGHT ANKLE 3V, Modifiers: 26 , RT, L1902 AFO ANK GAUNTLT PREFAB W FIT ADJ, Modifiers: RT * Follow Up: 4 Weeks * Images: * The named appointment provid er may or may not be the originator of this progress note, and it is not deemed complete until electronically signed by the appointment provider. Sign off status: Pending * Provider: Maria C Jade DPM Date: 0 08/24/2023 Generated for Amando awad/Hien/Pageitting on: 0 01/24/2025 11:28 AM EDT History and Physical Notes * HPI (History of Present Illness) Category Sub-Category Detail Notes Category Not es Foot Pain Aggrevated: any pressure, shoes, after d riving car Onset/Cause: unknown, denies trau ma Course: worse in past 4-5 we eks Duration: several months Nature: sharp, swelling, ach ing Treatments: cortisone injection therapy, improved condition for 2 months Quality/Severity 7-8, scale 1-10 Location Top, Midfoot, Right , Bottom, Midfoot, Right Examination Category Sub-Category Detail Notes Category Not es Neuroma Pain PALPATION: No interspace pain noted on palpation Neurological SENSORY: Neurological exa m is normal, pain sensation normal, vibration sensation intact, pinprick sensation is normal in the lower extremities, denies, tingling, burning, anesthesia, paresthesia, hyperesthesia, B/L, Neurological exam demonstrates pop dorsum right 3rd mt-cun and pop plantar fascia midfoot christos; most acute pop right sinus tarsi and cc BABINSKI REFLEX: absent TINEL'S COMPRESSION: Negative tarsal isatu néstor, gregory pedis, and medial calcaneal nerves B/L Dermatologic SKIN FINDINGS: Skin exam reveal s normal texture, elasticity, and tugor. There are no masses. The interspaces are clear, B/L Orthopedic GAIT ABNORMALITY: pronated, abducted, B/L MUSCLE STRENGTH: 5/5 all groups in a symmetrical fashion , B/L General Examination GENERAL APPEARANCE: pleasant , alert, well nourished, well developed, well hydrated, with good attention to hygene/body habitus, and in no acute distress ORIENTED: person,place, and ti me Vascular DP PULSES (B): 2/4, B/L PT PULSES (B): 1/4, B/L CAPILLARY FILL TIME: 3 secs. per digit, B/L TEMPERTURE GRADIENT (C): warm to cool, p roximal to distal, B/L EDEMA (C): 2/4, B/L, Ankle(s), Leg(s) TELANGECTASIA: present VARICOSITIES: present, moderate, n onpainful, B/L X-Rays - IMAGING REPORT Findings: mild gen eralized decrease in bone density, asymmetrical Ankle joint space narrowing, medial gutter, lateral gutter Foot structure: reveals excess prona tion with, anterior break in cyme line Views: 3 views of Ankle, RI GHT Clinical Indication(s): Evaluate Biomech anical Deformity
--- NOTE | 2025-01-24 09:42 | HO.NEPHOV_ITS ---
Vital Signs 01/24/25 09:43 Height 5 ft 3 in Weight 217 lb BMI 38.4 BP 150/84 H Blood Pressure Location Lt brachial Position Sitting Pulse 84 Pulse Source Pulse Oximeter Pulse Oximetry (%) 98 Oxygen Delivery Method Room Air Intake Visit Reasons: 6wk f/u Family Member Caretaker Required: No Accompanied by: Self / Same As Patient Allergies No Known Allergies Allergy (Verified 01/24/25 09:45) Medication List - Last Reconciled 01/24/25 by Marshall Holder MD albuterol sulfate 90 mcg/actuation inhalation PRN amlodipine 10 mg PO DAILY duloxetine 60 mg PO DAILY fluticasone propionate 50 mcg/actuation 1 spray intranasal BID PRN hydralazine 100 mg PO TID losartan 50 mg PO DAILY magnesium 250 mg PO DAILY PRN miscellaneous medical supply (Blood Pressure Cuff) As directed omeprazole 20 mg PO DAILY PRN simvastatin 10 mg PO BEDTIME valacyclovir 500 mg PO BID PRN vitamin B complex 1 cap PO DAILY HPI Comments Details: [age] old woman with a history of longstanding hypertension cholelithiasis with transaminitis fatty liver and chronic back pain with obesity he is here for follow-up regarding hypertension. She has been on verapamil 180 mg twice a day and telmisartan 80 mg a day. Today she has no specific complaints. Back in July of 2021 she developed cough with Lotrel. Lotrel was switched to valsartan with amlodipine combination which she has been able to tolerate. She has lost about 14 lbs 03/22/2024 ;Overall doing well no new issues. She has occasional leg edema mostly in the evenings no shortness of breath. 06/28/24: Events noted; Recently had a spike in BP . No change in medications 09/06/24: BP has been stable. No new issues. No dyspnea at rest 12/13/24 Underwent Valve replacement on Sep 28 2024 Since then, she has dizziness Seen by ENT 01/24/25 - The patient is a 74-year-old female presenting with hypertension. - Hypertension is uncontrolled despite amlodipine, losartan, and hydralazine. - 24-hour blood pressure monitoring shows an average of 162/81 mmHg. - Renal artery stenosis identified via CAT scan may contribute to hypertension. Blood pressure was elevated and hydralazine was increased Up to 100 mg t.i.d. yesterday. PFSH Social History Alcohol intake: never Patient Tobacco Use Status: Never used Tobacco Physical Exam Vital Signs: Last Vital Signs Pulse 84 01/24/25 09:43 BP 150/84 H 01/24/25 09:43 Pulse Ox 98 01/24/25 09:43 Oxygen Delivery Method Room Air 01/24/25 09:43 BMI result Body Mass Index 38.4 Comfortable Neck supple no JVD. Lungs entry equal no rales. Heart S1-S2 heard no gallop or rub. Abdomen soft nontender. Neuro alert awake oriented. No asterixis. Extremities no edema. Office Procedures 24 B/P Monitor Interpretation Details: Resistant hypertension. Average blood pressure is 160/80 mm Hg Nocturnal dipping present but suboptimal. CPT: 47768 24 Hour Blood Pressure Monitor Reading Procedure code (CPT) selection complete Results Reviewed Nephrology Results: Hgb, (12.0-16.0) 11.5 g/dl L 12/14/24 WBC, (4.8-10.8) 5.8 X10*3/uL 12/14/24 Plt Count, (160-400) 246 X10*3/uL 12/14/24 Sodium, (135-145) 138 mmol/L 01/17/25 Potassium, (3.3-5.1) 4.3 mmol/L 01/17/25 Chloride, (96-108) 105 mmol/L 01/17/25 Carbon Dioxide, (22-29) 28 mmol/L 01/17/25 BUN, (9-16) 14 mg/dL 01/17/25 Creatinine, (0.5-1.4) 0.72 mg/dL 01/17/25 Calcium, (8.4-10.2) 9.6 mg/dL 01/17/25 Assessment & Plan Assessment & Plan (1) HTN (hypertension): Code(s): I10 - Essential (primary) hypertension Category: Medical Plan 74-year-old woman with history of resistant hypertension. Left renal artery stenosis based on CTA Blood pressure is difficult to control 24 hour ABP M showed resistant hypertension Renal function is stable. Referred to intervention Radiology for angiogram with possible angioplasty Stay on low-salt diet. She will benefit from weight loss as well. Continue with current medications No changes were made Orders: Orders AMB 24 HR B/P Monitor INTERPRETATION Today Marshall Holder MD I10 - Essential (primary) hypertension Referrals Interventional Radiology Referral Marshall Holder MD I1A.0 - Resistant hypertension, I70.1 - Atherosclerosis of renal artery Medications: Changed From hydralazine 50 mg PO TID 270 tabs 1RF To hydralazine 100 mg PO TID Sarah Moser, DNP, CONTENT DEVELOPMENT MANAGER-BC Coding Level of Care Code Est Pt Level 4 (09501) Diagnoses HTN (hypertension) I10 CPT Codes - CPT: 46676 24 Hour Blood Pressure Monitor Reading ([id number])
[2025-01-24 09:43] VITALS: BP 150/84; PULSE 84; O2SAT 98; BMI 38.4
--- OUTSIDE RECORDS SUMMARY | 2025-01-24 11:28 | XMS_ITS | Encounter Summary ---
Author Organization [facility] Address [address] [place] [address] Phone Care Team Providers Care Regulatory Affairs Manager Name Role Phone Michael Orona MD Primary Care Provider [phone] Encounter Details Date Type Department Care Team (Late st Contact Info) Description 05/26/2022 Telephone [facility] [address] [place] [address] Marshall Holder MD Social History [...] encounter Miscellaneous Notes * Telephone Encounter - Cirs Berger - 05/26/2022 9:20 AM EST Pt called, she needs a refill for hydralazine tiny, Please send to [facility] pharmacy she is out of alexander meds thank you documented in this encounter Plan of Treatment Not on file documented as of this encounter Visit Diagnoses Not on filedocumented in this encounter Care Teams Regulatory Affairs Manager Relationship Specialty Start Date End Date Michael Orona MD [facility] [address] [place], [place] PCP - General Internal Medicine 03/19/21 documented as of this encounter
--- OUTSIDE RECORDS SUMMARY | 2025-01-24 11:28 | XMS_ITS | Clinical Summary ---
Author Organization [facility] ity Address [address] [place] [address] Care Team Providers Care Physician Industrial Name Role Phone Unavailable Primary Care Provider [...] 04/05/2022 Social Influencers of Health Screening 04/05/2022 Depression Screening 05/03/2024 COVID-19 Vaccine ( - 2023-2 5 season) 2025 Influenza Vaccine (#1) 2025 RSV Immunization Adult [...]
--- OUTSIDE RECORDS SUMMARY | 2025-01-24 11:29 | XMS_ITS | Clinical Summary ---
Author Organization [facility] Address [address] [place] [address] Care Team Providers Care Sap Bw Consultant Name Role Phone Michael Orona Primary Care Provider [phone] Allergies No known active allergies Medications aspirin [...] (1 - Tdap) 08/21/1973 Osteoporosis Screening 08/21/2001 Alcohol/Substance Use Screening 05/03/2024 Health Care Proxy Review 05/03/2024 COVID-19 Vaccine ( season) 2025 03/05/2021, 08/04/2020, 07/14/2020 Influenza Vaccine (#1) 2025 , 04/30/2020, 04/30/2020, Additional history exists RSV Vaccine (60+ years old and patients) (1 - 1-dose 75+ series) 08/21/2026 Pneumococcal Vaccine: 50+ Years Completed 06/07/2019, 12/07/2016 Zoster Vaccines Completed 12/23/2020, 10/02, 12/04/2014 Hepatitis B Vaccines Aged Out No long er eligible based on patient's age to complete this topic Insurance MEDICARE [facility] Care Teams Sap Bw Consultant Relationship Specialty Start Date End Date Michael Orona [address] [place] [address] PCP - General Internal Medicine 05/17/20
--- OUTSIDE RECORDS SUMMARY | 2025-01-24 11:29 | XMS_ITS | Clinical Summary ---
Author Organization [facility] Address [address] [place] [address] Phone Care Team Providers Care [place] Boatman Name Role Phone Michael Orona MD Primary Care Provider [phone] Active Problems Problem Noted Date Diagnosed Date [...] (ONE-TIME) 08/21/2016 Adult Td,Tdap Booster 12/01/2017 12/02/2007 INFLUENZA VACCINE (#1) 2024 , 02/13/2021, 04/30/2020, Additional history exists COVID-19 VACCINE ( season) 2025 04/03/2022, 03/05/2021, 08/04/2020, Additional history exists RSV [...] topic Medical Devices Not on file Insurance MEDICARE PART A & [place] [address] MEDICARE REPLACEMENT Member Subscriber Plan / Payer (Ef fective 2021-Present) Name:Lillie Phillips Relation to Subscriber:Self Name:Lillie Phillips Payer ID:[id number] (NAIC) Group ID:[id number] Type:Medicare Address: [address] [facility] MEDICARE PART A & [place] [address] MEDICARE REPLACEMENT MEDICARE PART A & B [facility] MEDICARE REPLACEMENT MEDICARE PART A & B [facility] MEDICARE REPLACEMENT MEDICARE PART A & B [facility] MEDICARE REPLACEMENT MEDICARE PART A & B MEDICARE PART A & [place] [address] MEDICARE REPLACEMENT MEDICARE PART A & [place] [address] MEDICARE REPLACEMENT Member Subscriber Plan / Payer (Ef fective 2021-Present) Name:Lillie Phillips Relation to Subscriber:Self Name:Lillie Phillips Payer ID:[id number] (NAIC) Group ID:[id number] Type:Medicare Address: [address] [place] [id number] MEDICARE PART A & B Care Teams [place] Boatman Relationship Specialty Start Date End Date Michael Orona MD [address] [place] [address] PCP - General Internal Medicine 07/16/21 Additional Source Comments The information contained in this document represents components of the legal health record. It is not the complete legal health record.[facility]
--- OUTSIDE RECORDS SUMMARY | 2025-01-24 11:29 | XMS_ITS | Patient Health Record ---
Author Organization [facility] Address [address] [place] [address] Care Team Providers Care Stunt Person Name Role Phone Michael Orona MD Primary Care Provider He Chapa Unavailable [phone] Allergies Allergen (clinical drug ingredient) Drug/Non Drug Allergy documented on EMR Reaction Allergy Type Onset Date Status morphine Morphine Unknown Drug Allergy Active Reason For Referral No Information Medications Medication SIG (Take, Route, Frequency, Duration) Notes Start Date End Date Status Vitamin D Active ASO Ankle/Foot Stablizing AFO As directed Wear Daily; Duration: as needed Active Voltaren 1 % as directed Externally 05/29/2022 Active Gemtesa Active amLODIPine Besylate 5 MG 1 tablet Orally Once a day; Duration: 30 day(s) Active B Complex Active DULoxetine HCl 60 MG 1 capsule Orally On ce a day; Duration: 30 day(s) Active Fish Oil Active hydrALAZINE HCl 25 MG 1 tablet with food Orally Three times a day; Duration: 30 day(s) Active Nortriptyline HCl 10 MG 1 capsule Orally Once a day; Duration: 30 day(s) Active Social History Tobacco Use: [...] primary osteoarthritis of the ankle and/or foot (363434133) Primary osteoarthrit is, right ankle and foot (M19.071) Active confirmed Plan Of Treatment Pending Test Test Name Order Date X ray : Foot, right 3V 05/29/2022, [id number]- INJECT or DRAIN, JOINT/BUR SA 05/25/2023, [id number]/INJECT, JOINT/BURSA 0 05/25/2023, [id number]/INJECT, JOINT/BURSA 0 10/27/2022 X ray : Ankle, right 3V 07/23/2023 Insurance Providers Payer Name Payer Address Payer Phone Subscriber Number Group Number Insured Name Patient Relationship to Insured Coverage Start Date Coverage End Date [facility] S[employer] Claims [address] [place] [address] [phone] [id number] Lillie Phillips Self - patient is the insured Medical (General) History Medical History History ICD Code Arthritis covid-19 Depression Fibromyalgia Headaches/Migraines High blood pressure Numbness Joint implants/screws Bone implants/screws Surgical History Surgery Date(Month/Year) knee replacement 12/20/20 shoulder replacement 07/22/21 elbow sx 11/17/21
--- OUTSIDE RECORDS SUMMARY | 2025-01-24 11:29 | XMS_ITS | Clinical Summary ---
Author Organization [facility] Address [address] [place] [address] Phone Care Team Providers Care Laborer Road Name Role Phone Michael Orona MD Primary Care Provider [phone] Allergies Active Allergy Reactions Criticality Noted Date [...] 2 Active Cholecalciferol (Vitamin D3) 1.25 MG (54658 UT) capsule 2 Active hydrALAZINE 25 MG [...] UTD Active Cholecalciferol (Vitamin D3) 1.25 MG (14062 UT) capsule Take by mouth 5 Active [...] Cancer Screening: Sigmoidoscopy 08/21/2000 Influenza Vaccine (#1) 2025 , 02/13/2021, 04/30/2020, Additional history exists Pneumococcal Vaccine: 50+ Years Completed 06/07/2019, 12/07/2016 Hepatitis B Vaccine Aged Out No longe r eligible based on patient's age to complete this topic Insurance [facility] ([id number]) [facility] ([id number]) Care Teams Laborer Road Relationship Specialty Start Date End Date Michael Orona MD [address] PCP - General Internal Medicine 03/19/21
--- OUTSIDE RECORDS SUMMARY | 2025-01-24 11:29 | XMS_ITS | Data Portability ---
Author Organization [facility] Address [address] [facility] [address] [place] [address] Care Team Providers Care Environmental Aide Name Role Phone JAVIER TRACEY Primary Care [...] appointment has been booked. She needs a school bus driver/custodian on the day of the procedure. I [...] appointment has been booked. She needs a school bus driver/custodian on the day of the procedure. [email or web address] Not available 03/23/2022 14:21:57 Plan of Treatment Reminders Order Date Submit Date Provider Last Modified By Organization Details Last Modified Time Details Appointments None recorded. Lab None recorded. Referral None recorded. Procedures None recorded. Surgeries None recorded. Imaging None recorded. Medication Orders gabapentin 300 mg capsule 2019 020 [id number], [address] [place], [place], [id number], 13:00:17 Patient TargetsNo targets recorded. Patient Instructions Encounter Date Encounter Id Patient Instructions Last Modified By Organization Details Last Modified Time 05/24/2019 [id number] She was advised to continue with activities as tolerated. [email or web address] Not available 05/29/2019 12:01:06 05/30/2019 [id number] She was advised to continue with activities as tolerated. [email or web address] Not available 05/30/2019 11:29:57 06/29/2019 [id number] She was advised to continue with activities as tolerated. [email or web address] Not available 07/04/2019 08:30:21 10/04/2020 [id number] She was advised to continue with activities as tolerated. [email or web address] Not available 10/04/2020 13:52:51 03/23/2022 [id number] She was advised to continue with activities as tolerated. [email or web address] Not available 03/23/2022 14:20:35 Reason for Referral None Reported. Problems Name Problem SNOMED Code Status Onset Date Resolution Date Notes Provider Name and Address Organization Details Recorded Time Lumbosacral spondylosis without myelopathy 31441242 Active 2016 Dillan george MD [address] , [address], [place], [address], [place] [facility] 7 10:14:12 Lumbar post-laminecto my syndrome 379402990 Active 2016 Dillan george MD [address] , [address], [place], [address], [place] [facility] 7 10:14:14 Displacement of lumbar intervertebral disc without myelopathy 72985793 Active 2016 Dillan george MD [address] , [address], [place], [address], [place] [facility] 7 10:14:15 Spinal stenosis of lumbar region 55928376 Active 2016 Dillan george MD [address] , [address], [place], [address], [place] [facility] 7 10:14:17 Problem Notes None recorded. Procedures Surgical History Date Name Laterality Status Provider Name and Address Organization Details Recorded Time 05/30/19 20 Lumbar Epidural steroid injection under fluoroscopic guidance completed Dillan West MD [address] , [address], [place], [address], [place] [facility] 05/30/2019 11:31:42 02/23/20 18 Fluoroscopic Guided Lumbar Facet Steroid Injections of levels completed Dillan West MD [address] , [address], [place], [address], [place] [facility] 02/24/2018 08:53:58 08/02/19 18 Other completed Joyce Whaley [place] [facility] 12/08/2018 14:20:26 01/28/20 17 Fluoroscopic Guided Lumbar Facet Steroid Injections of levels completed Dillan West MD [address] , [address], [place], [address], [place] [facility] 01/27/2017 15:10:05 Back Surgery completed Joyce Whaley [place] [facility] 01/08/2017 09:24:56 Other completed Joyce Whaley [place] [facility] 01/08/2017 09:25:46 Hysterectomy completed Joyce Eckerter [place] [facility] 01/08/2017 09:26:07 Carpal tunnel release completed Joyce Eckerter [place] [facility] 01/08/2017 09:26:44 Arthroscopic Surgery completed Joyce Eckerter [place] [facility] 01/08/2017 09:27:23 Cholecystectomy completed Joyce Dailyzier [place] [facility] 01/08/2017 09:27:31 total knee replacement completed Dillan West MD [address] [facility] , [address], [place], [address], [place] [facility] 10/04/2020 10:37:18 total shoulder replacement completed Dillan West MD [address] [facility] , [address], [place], [address], [place] [facility] 03/23/2022 14:48:43 Imaging Results None recorded. Procedure Notes None recorded. Medical Equipment None Reported. Allergies No known drug allergies Medications Name Sig Start Date Stop Date Status Note LastModified by Organization Details LastModified Time vitamin d3 1.25 mg (95929 u active Not Available Not Available Not [...] glucosamine 116 mg-chondroi tin 100 mg-dietary supplement no.25 capsule Take by oral route. 12/08 completed [...] verbal numeric rating [Score] - Reported Systolic And Diastolic Provider Name and Address Organization Details Last Updated DateTime 0 160.02 cm 33.3 kg/m2 49679.3 7 g 78 /min 100 % 100 % 9 167/70 mm[Hg] Russell george [facility] 0 14:05:27 Date Recorded Body height Pain severity - 0-10 verbal numeric rating [Score] - Reported Heart rate Oxygen saturation Oxygen saturation in Arterial blood by Pulse oximetry Systolic And Diastolic Provider Name and Address Organization Details Last Updated DateTime 0 160.02 cm 5 85 /min 100 % 100 % 186/81 mm[Hg] Flavia Maldonado [place] [facility] 0 10:25:49 Date Recorded Body height Heart rate Oxygen saturation Oxygen saturation in Arterial blood by Pulse oximetry Body mass index (BMI) Body weight Systolic And Diastolic Provider Name and Address Organization Details Last Updated DateTime 0 160.02 cm 87 /min 98 % 98 % 35.4 kg/m2 64577.4 7 g 138/69 mm[Hg] Flavia Maldonado [place] [facility] 0 09:00:44 Date Recorded Body height Body mass index (BMI) Body weight Heart rate Provider Name and Address Organization Details Last Updated DateTime 03/23/2022 160.02 cm 35.4 kg/m2 12999.47 g 80 /min Dillan West MD [address] [facility] , [address], [place], [address], [place] [facility] 03/23/2022 14:20:14 Date Recorded Oxygen saturation Oxygen saturation in Arterial blood by Pulse oximetry Pain severity - 0-10 verbal numeric rating [Score] - Reported Systolic And Diastolic Provider Name and Address Organization Details Last Updated DateTime 03/23/2022 97 % 97 % 7 152/81 mm[Hg] Russell george [place] [facility] 2 12:55:47 Social History Question Answer Notes LastModified by Lumus Details LastModified Time Tobacco Smoking Status Former Smoker Quit x 30 years Not Available [facility] 02/16/2020 03:16:11 Which Illicit Or Recreational Drugs Have You Used? NO [id number] Information not available 02/16/2020 GED Yes [email or web address] Information no t available 01/08/2017 Marital Status [email or web address] Informatio n not available 01/08/2017 What Was The Date Of Your Most Recent Tobacco Screening? 02/24/2018 [id number] Information not available 02/16/2020 How Many Years Have You Smoked Tobacco? 2 [id number] Information not available 02/16/2020 Sex: Unknown Functional Status Question Answer Note LastModified by Organizat ion Details LastModified Time What is your level of alcohol consumption? 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 [employer]ier [email or web address] Information not available 01/08/2017 Mental Status None recorded. Family History Relationship Description Onset Age of this Age Resolved Age Notes LastModified by Organization Details LastModified Time Father No current problems or disability [email or web address] Not available 01/08 09:22:50 Mother No current problems or disability [email or web address] Not available 01/08 09:22:50 Medical History Condition Response Arthritis Y Irritable Bowel Syndrome Y Hyperthyroidism Y Gynecological HistoryNo gynecological history recorded. Obstetrics History GPAL:G 0 P 0 0 0 0 Past Encounters Encounter ID Performer Location Encounter Start Date Encounter Closed Date Diagnosis/Indication Diagnosis SNOMED-CT Code Diagnosis ICD10 Code Diagnosis IMO Codes Diagnosis Note [id number] Dillan West MD PAIN OFFICE [address] [place] [address] 01/08/2017 08:42:52 01/11/2017 10:21:59 Lumbosacral spondylosis without myelopathy 37757203 M47.817 Lumbar post-laminectomy syndrome 324465405 M96.1 Displaceme nt of lumbar intervertebral disc without myelopathy 15213115 M51.26 Spinal dee nosis of lumbar region 77610702 M48.06 [id number] Dillan West MD PAIN OFFICE [address] [place] [address] 01/27/2017 10:18:45 01/28/2017 09:27:51 Lumbosacral spondylosis without myelopathy 04861361 M47.817 Lumbar post-laminectomy syndrome 813717034 M96.1 Displaceme nt of lumbar intervertebral disc without myelopathy 28095643 M51.26 Spinal dee nosis of lumbar region 83609480 M48.06 [id number] Dillan West MD PAIN OFFICE [address] [place] [address] 02/23/2017 10:08:21 02/23/2017 11:11:16 Lumbosacral spondylosis without myelopathy 28472596 M47.817 Lumbar post-laminectomy syndrome 790233795 M96.1 Displaceme nt of lumbar intervertebral disc without myelopathy 24526858 M51.26 Spinal dee nosis of lumbar region 68941529 M48.062 [id number] Dillan West MD PAIN OFFICE [address] [place] [address] 06/08/2017 08:49:05 06/08/2017 09:14:04 Lumbosacral spondylosis without myelopathy 69392150 M47.817 Lumbar post-laminectomy syndrome 068522802 M96.1 Displaceme nt of lumbar intervertebral disc without myelopathy 90084319 M51.26 Spinal dee nosis of lumbar region 62827385 M48.062 [id number] Dillan West MD PAIN OFFICE [address] [place] [address] 02/22/2018 14:41:05 02/24/2018 09:42:46 Lumbosacral spondylosis without myelopathy 26150774 M47.817 Lumbar post-laminectomy syndrome 573417910 M96.1 Displaceme nt of lumbar intervertebral disc without myelopathy 43787466 M51.26 Spinal dee nosis of lumbar region 08519062 M48.061 [id number] Dillan West MD PAIN OFFICE [address] [place] [address] 12/08/2018 13:34:57 12/08/2018 14:55:16 Lumbosacral spondylosis without myelopathy 68603434 M47.817 Lumbar post-laminectomy syndrome 498985727 M96.1 Displaceme nt of lumbar intervertebral disc without myelopathy 12296125 M51.26 Spinal dee nosis of lumbar region 62070975 M48.061 [id number] Dillan West MD PAIN OFFICE [address] [place] [address] 05/24/2019 13:52:43 05/29/2019 12:04:20 Displacement of lumbar intervertebral disc without myelopathy 13274620 M51.26 Lumbar post-laminectomy syndrome 067225611 M96.1 Lumbosacra l spondylosis without myelopathy 26979005 M47.817 Spinal dee nosis of lumbar region 80059632 M48.061 [id number] Dillan West MD [facility] [address] [place] [address] 05/30/2019 10:04:00 05/30/2019 12:02:41 Displacement of lumbar intervertebral disc without myelopathy 67769345 M51.26 Lumbar post-laminectomy syndrome 491405517 M96.1 Lumbosacra l spondylosis without myelopathy 98776657 M47.817 Spinal dee nosis of lumbar region 44964889 M48.061 [id number] Dillan West MD PAIN OFFICE [address] [place] [address] 06/29/2019 08:53:20 07/04/2019 08:34:02 Displacement of lumbar intervertebral disc without myelopathy 19701954 M51.26 Lumbar post-laminectomy syndrome 446355564 M96.1 Lumbosacra l spondylosis without myelopathy 67637555 M47.817 Spinal dee nosis of lumbar region 98938522 M48.061 [id number] Dillan West MD [facility] [address] [place] [address] 10/04/2020 10:36:19 10/04/2020 13:53:57 Displacement of lumbar intervertebral disc without myelopathy 04625910 M51.26 Lumbar post-laminectomy syndrome 354054388 M96.1 Lumbosacra l spondylosis without myelopathy 00906601 M47.817 Spinal dee nosis of lumbar region 19368623 M48.061 [id number] Dillan West MD [facility] [address] [place] [address] 03/23/2022 12:52:26 03/23/2022 14:49:20 Displacement of lumbar intervertebral disc without myelopathy 35393076 M51.26 Lumbar post-laminectomy syndrome 843192446 M96.1 Lumbosacra l radiculopathy 8499572 M54.17 Health Concerns Section Related Observation LastModified by Organization Detai ls LastModified Time None Recorded Concern Status LastModified by Organization Details LastModified Time None Recorded Advance Directives Directive None Recorded Payers Insurance Date Sequence Insurance Name Policy Number Policy Sheppard Covered Member ID Sheppard Member ID Guarantor Name 02/13/2022 2 [place] [facility] Lillie Delaneyo [id number] Lillie Jacqueline 06/28/2022 2 MEDICARE B[place] [facility] Lillie Delaneyo [id number] Lillie Jacqueline 06/28/2022 1 [facility] - DOS PRIOR TO 2022 - DUAL ELIGIBLE (MEDICARE REPLACEMENT/AD VANTAGE - HMO) Lillie Delaneyo [id number] Lillie [place] Notes Date Note Type Note Provider Name [...] spinal stenosis at L2-3. Dillan West MD [address] [place] [address] , [place] [address], [place], [address], [facility] 05/30/2019 11:28:58 05/30/2019 text/html She is here for a trial of lumbar epidural steroid injection under fluoroscopic guidance. Dillan West MD [address] [place] [address] , [facility] [address], [place], [address], [facility] 05/31/2019 08:50:23 06/29/2019 text/html She is here for a follow up after a trial of lumbar epidural steroid injection under fluoroscopic guidance. She reports 80% pain benefit which is ongoing. 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 She has no history of bladder or bowel incontinence. She is seeing Dr. Velasco for a consult. Dillan West MD [address] [place] [address] , [facility] [address], [place], [address], [facility] 07/05/2019 09:55:20 10/04/2020 text/html This is a follow up. She states she had a total knee replacement last year . She has been having shoulder pain and is now scheduled to have a right shoulder replacement with Dr. Azalea Paige . She states her low back pain is currently manageable. Dillan West MD [address] , [address], [place], [address], [facility] 10/04/2020 14:26:08 03/23/2022 text/html [...] was so severe she had gone to [facility] and was started on prednisone and [...] her ovarian region. Dillan West MD [address] , [address], [place], [address], [facility] 03/23/2022 16:20:37 OBGyn Episode No OBEpisode recorded.
== END 2025-01-24 10:05 | disposition home or self-care (01) ==
LOC: HO.HKAS 09:36
PROVIDERS: Visit Provider Internal Medicine Hypertension Specialist
DX: I10 Essential (primary) hypertension (principal)
CPT/HCPCS: 93790; 99214

== ENCOUNTER → 2025-01-24 09:36 | Outpatient (BNVA) | payer OTHER, SELFPAY | PROVIDERS: Visit Provider Internal Medicine Hypertension Specialist | DX: I1A.0 Resistant hypertension (principal); I70.1 Atherosclerosis of renal artery | CPT/HCPCS: 99212 ==

== ENCOUNTER 2025-05-01 10:44 | Outpatient (REF) | payer OTHER, SELFPAY ==
[2025-05-01 14:06] LABS: MANUAL DIFF FLAG NO
[2025-05-01 14:09] LABS: Hematocrit 35.9 % (37.0-47.0); Hemoglobin 11.3 g/dl (12.0-16.0); Imm Gran Abs Auto 0.03 X10*3/uL (0.00-0.03); Imm Gran Pct Auto 0.5 % (0.0-0.4); Lymphocytes Absolute Auto 2.2 X10*3/uL (1.2-4.9); Mean Corpuscular HGB Conc 31.5 g/dl (31.0-35.0); Mean Corpuscular Hemoglobin 25.7 pg (27.0-33.0); Mean Corpuscular Volume 81.6 fL (80.0-98.0); NRBC Abs Auto 0.000 X10*3/uL (0.0-0.012); NRBC Pct Auto 0.0 /100WBC (0.0-0.2); Platelet Count 283 X10*3/uL (160-400); Red Blood Count 4.40 X10*6/uL (4.20-5.50); White Blood Count 6.2 X10*3/uL (4.8-10.8)
[2025-05-01 14:31] LABS: Anion Gap 11 (12-20); Blood Urea Nitrogen 20 mg/dL (9-16); Carbon Dioxide 26 mmol/L (22-29); Chloride 104 mmol/L (96-108); Estimated Glomerular Filt Rate > 60; Potassium 3.9 mmol/L (3.3-5.1); Sodium 137 mmol/L (135-145)
--- OUTSIDE RECORDS SUMMARY | 2025-05-01 14:32 | XMS_ITS | Clinical Summary ---
Author Organization [facility] ity Address [address] [place] [address] Care Team Providers Care Midwife Name Role Phone Unavailable Primary Care Provider [...] Breast Cancer Screening 1950 Colorectal Cancer Screening: Colonoscopy 1950 DTaP,Tdap,and Td Vaccines (1 - Tdap) 08/21/1970 Pneumococcal Vaccine: 50+ Ye ars (1 of 1 - PCV) 08/21/2001 Zoster Vaccines (1 of 2) 08/21/2001 Falls Risk Assessment 04/05/2022 Hepatitis C Screening 04/05/2022 Osteoporosis Screening (Bone Density Screening) 04/05/2022 Social Influencers of Health Screening 04/05/2022 Depression Screening 05/03/2024 COVID-19 Vaccine (1 - 2024-2 6 season) 2025 Influenza Vaccine (#1) 2025 RSV [...]
--- OUTSIDE RECORDS SUMMARY | 2025-05-01 14:32 | XMS_ITS | Encounter Summary ---
Author Organization [facility] Address [address] [place] [address] Phone Care Team Providers Care Mill House Supervisor Name Role Phone Michael Orona MD Primary Care Provider [phone] Encounter Details Date Type Department Care Team (Late st Contact Info) Description 05/26/2022 Telephone [facility] [address] [place] [address] Marshall Holder MD Social History [...] refill for hydralazine tiny, Please send to [facility] she is out of alexander meds thank you documented in this encounter Plan of Treatment Not on file documented as of this encounter Visit Diagnoses Not on filedocumented in this encounter Care Teams Mill House Supervisor Relationship Specialty Start Date End Date Michael Orona MD [facility] [address] [place], [place] PCP - General Internal Medicine 03/19/21 documented as of this encounter
--- OUTSIDE RECORDS SUMMARY | 2025-05-01 14:33 | XMS_ITS | Clinical Summary ---
Author Organization [facility] Address [address] [place] [address] Phone Care Team Providers Care Automobile Radio Repairer Name Role Phone Michael Orona MD Primary Care Provider [phone] Allergies Active Allergy Reactions Criticality Noted Date [...] 2 Active Cholecalciferol (Vitamin D3) 1.25 MG (84045 UT) capsule 2 Active hydrALAZINE 25 MG [...] UTD Active Cholecalciferol (Vitamin D3) 1.25 MG (37840 UT) capsule Take by mouth 5 Active [...] cramps 07/09/2021 Urgent desire for stool 07/09/2021 Steatotic liver disease 07/09/2021 Osteoarthritis 07/09/2021 Obesity 07/09/2021 Vasovagal syncope [...] patient's age to complete this topic Insurance [facility] ([id number]) [facility] ([id number]) Care Teams Automobile Radio Repairer Relationship Specialty Start Date End Date Michael Orona MD [address] PCP - General Internal Medicine 03/19/21
--- OUTSIDE RECORDS SUMMARY | 2025-05-01 14:33 | XMS_ITS | Clinical Summary ---
Author Organization [facility] Address [address] [place] [address] Care Team Providers Care Subscription Clerk Name Role Phone Michael Orona Primary Care Provider [phone] Allergies No known active allergies Medications aspirin [...] DTaP,Tdap,and Td Vaccines (1 - Tdap) 08/21/1973 Mammogram 1991 Osteoporosis Screening 08/21/2001 Alcohol/Substance Use Screening 05/03/2024 Health Care Proxy Review 05/03/2024 Influenza Vaccine (#1) 2024 , 04/30/2020, 04/30/2020, Additional history exists COVID-19 Vaccine ( season) 2025 03/05/2021, 08/04/2020, 07/14/2020 RSV Vaccine (60+ years old and patients) (1 - 1-dose 75+ series) 08/21/2026 Pneumococcal Vaccine: 50+ Years Completed 06/07/2019, 12/07/2016 Zoster Vaccines Completed 12/23/2020, 10/02, 12/04/2014 Hepatitis B Vaccines Aged Out No long er eligible based on patient's age to complete this topic Insurance MEDICARE [facility] Care Teams Subscription Clerk Relationship Specialty Start Date End Date Michael Orona [address] [place] [id number] PCP - General Internal Medicine 05/17/20
--- OUTSIDE RECORDS SUMMARY | 2025-05-01 14:33 | XMS_ITS | Patient Health Record ---
Author Organization [facility] Address [address] [place] [address] Care Team Providers Care Packaging Line Operator Name Role Phone Michael Orona MD Primary Care Provider UnavailHe Hdez Unavailable [phone] Allergies Allergen (clinical drug ingredient) Drug/Non Drug [...] primary osteoarthritis of the ankle and/or foot (920271132) Primary osteoarthrit is, right ankle and foot (M19.071) Active confirmed Plan Of Treatment Pending Test Test Name Order Date X ray : Foot, right 3V 05/29/2022, [id number] INJECT or DRAIN, JOINT/BUR SA 05/25/2023, [id number]/INJECT, JOINT/BURSA 0 05/25/2023, [id number]/INJECT, JOINT/BURSA 0 10/27/2022 X ray : Ankle, right 3V 07/23/2023 Insurance Providers Payer Name Payer Address Payer Phone Subscriber Number Group Number Insured Name Patient Relationship to Insured Coverage Start Date Coverage End Date [facility] [employer] Claims [address] [place] [address] [id number] Lillie Phillips Self - patient is the insured Medical (General) History Medical History History ICD Code Arthritis covid-19 Depression Fibromyalgia Headaches/Migraines High blood pressure Numbness Joint implants/screws Bone implants/screws Surgical History Surgery Date(Month/Year) knee replacement 12/20/20 shoulder replacement 07/22/21 elbow sx 11/17/21
--- OUTSIDE RECORDS SUMMARY | 2025-05-01 14:33 | XMS_ITS | Clinical Summary ---
Author Organization [facility] Address [address] [place] [id number] Phone Care Team Providers Care Transporter Driver Name Role Phone Michael Orona MD Primary Care Provider [phone] Active Problems Problem Noted Date Diagnosed Date [...] file Insurance MEDICARE PART A [place] [address] [place] [address] MEDICARE REPLACEMENT Member Subscriber Plan / Payer (Ef fective 2021-Present) Name:Lillie Phillips Relation to Subscriber:Self Name:Lillie Phillips Payer ID:[id number] (NAIC) Group ID:[id number] Type:Medicare Address: [address] [facility] MEDICARE PART A & [place] [address] [address] MEDICARE REPLACEMENT MEDICARE PART A & B [facility] MEDICARE REPLACEMENT MEDICARE PART A & B [facility] MEDICARE REPLACEMENT MEDICARE PART A & B [facility] MEDICARE REPLACEMENT MEDICARE PART A & B MEDICARE PART A & [place] [address] [place] [address] MEDICARE REPLACEMENT MEDICARE PART A & [place] [address] [place] [address] MEDICARE REPLACEMENT Member Subscriber Plan / Payer (Ef fective 2021-Present) Name:Lillie Phillips Relation to Subscriber:Self Name:Lillie Phillips Payer ID:[id number] (NAIC) Group ID:[id number] Type:Medicare Address: [address] [place] [id number] MEDICARE PART A & B Care Teams Transporter Driver Relationship Specialty Start Date End Date Michael Orona MD [address] [place] [address] PCP - General Internal Medicine 07/16/21 Additional Source Comments The information contained in this document represents components of the legal health record. It is not the complete legal health record.[facility]
== END 2025-05-01 10:45 | disposition home or self-care (01) ==
LOC: HO.HKASLDS 10:44
PROVIDERS: PCP Internal Medicine; Visit Provider Internal Medicine Nephrology
DX: I70.1 Atherosclerosis of renal artery (principal); I10 Essential (primary) hypertension
CPT/HCPCS: 36415; 80051; 82565; 84520; 85025